=== PATIENT | female | born 1935 | race African-American/Black ===

== ENCOUNTER → 2016-10-06 | Outpatient (CLI) | payer MEDICARE, BC ==
[2016-04-06 14:20] VITALS: BP 148/82
[~2016-10-06] MED LIST: ALLO100T PO; ASPI81TA2 PO; CHOL100013 PO; CILO100T PO; FURO40TA4 PO; GABA-586 PO; INSU100I13 SQ; INSU100I17 SQ; LOSA25TA4 PO; MELO-150 PO; PRAV40TA2 PO; SIMV20TA3 PO
--- NOTE | 2016-10-06 15:22 | KCIC ---
Chest PA and lateral Indication: Chest pain and cough. Time of exam 2:42 p.m. The heart is enlarged. There appears to be some subsegmental atelectasis in the right lung base. Otherwise the lungs are clear. No effusion is seen. There is no pneumothorax. No acute bony abnormality is detected. Impression: Cardiomegaly and right basilar subsegmental atelectasis. Electronically signed by: Davy Petit MD (Oct 06, 2016 15:20:47)
== END | disposition home or self-care (01) ==
LOC: KCIC 14:29
PROVIDERS: ATTEND Family Medicine
DX: R07.9 Chest pain, unspecified (principal); R05 Cough
CPT/HCPCS: 71020

== ENCOUNTER → 2016-11-26 | Outpatient (CLI) | payer MEDICARE, BC ==
[2016-10-28 15:00] VITALS: BP 143/53
[~2016-11-26] MED LIST changes: +CEFP100T PO; +NYST100054 SWSW; +OSEL75CA PO; +POLY17PO29 PO
--- NOTE | 2016-11-26 16:51 | KCIC ---
PROCEDURE Three-view left shoulder HISTORY Persistent left shoulder and axillary pain. No known injury. COMPARISON None FINDINGS No evidence of acute fracture. No aggressive bone destruction. Generalized bone demineralization. Mild degenerative change at acromioclavicular joint. Glenohumeral joint space appears preserved. Mild enthesophyte formation at the greater tuberosity compatible with some degree of rotator cuff arthropathy. The visualized left lung demonstrates some coarse markings, could represent some fibrosis but correlate with chest radiograph. IMPRESSION Mild degenerative changes. No acute fracture or dislocation. Electronically signed by: Nick Looney MD (November 26, 2016 16:50:13)
== END | disposition home or self-care (01) ==
LOC: KCIC 15:02
PROVIDERS: ATTEND Family Medicine
DX: M25.512 Pain in left shoulder (principal); M79.602 Pain in left arm
CPT/HCPCS: 73030

== ENCOUNTER 2017-04-15 15:20 | Inpatient (IN) | payer MEDICARE, BC ==
[~2017-04-15] VITALS: Ht 162.6 cm; Wt 100.7 kg
[~2017-04-15 15:20] MED LIST changes: +ASPI-630 PO; -ASPI81TA2 PO; -MELO-150 PO; +MELO15TA23 PO
[2017-04-15] MEDS ORDERED: MORPHINE SULFATE 10 MG/ML VIAL. IV ONE (15:45)
[2017-04-15] MEDS ORDERED: IV NORMAL SALINE 1000ML BAG 1,000 ML IV ONE (15:45)
[2017-04-15 15:58] LABS: NEG OBC FOB NEG; POS OBC FOB POS
--- NOTE | 2017-04-15 16:15 | PHYS DOC ---
Past Medical History Past Medical History: Cancer, Diabetes-Type II, Renal Failure, Other Additional Past Medical Histor: Colon Cancer Past Surgical History: Cancer Surgery, Hip Replacement, Hysterectomy, Knee Replacement, Other Additional Past Surgical Histo: Bowel resection, colonoscopy Alcohol Use: None Drug Use: None Adult General Chief Complaint Chief Complaint: ABDOMINAL PAIN HPI HPI Patient is a 81 year old female presenting to the emergency department for evaluation of left-sided abdominal pain in addition to rectal bleeding that started this morning. Patient reportedly has a history of hemorrhoids: Cancer and had chemotherapy and surgery in the early 2005 and says that she has been cured. She follows with a Dr. Go as her GI physician and she thinks her last colonoscopy was approximately one year ago. Pain is from left upper quadrant down to left lower quadrant and she said that she hadn't 2 bloody bowel movements. She is in no obvious distress with normal vital signs except tachycardia at 115. Review of Systems Review of Systems Constitutional: Denies fever or chills [] Eyes: Denies change in visual acuity, redness, or eye pain [] HENT: Denies nasal congestion or sore throat [] Respiratory: Denies cough or shortness of breath [] Cardiovascular: No additional information not addressed in HPI [] GI: + abdominal pain. No nausea, vomiting. + bloody stools. No diarrhea [] : Denies dysuria or hematuria [] Musculoskeletal: Denies back pain or joint pain [] Integument: Denies rash or skin lesions [] Neurologic: Denies headache, focal weakness or sensory changes [] Current Medications Current Medications Current Medications Medications (Trade) Dose Ordered Sig/[facility] Start Time Stop Time Status Last Admin Dose Admin Levofloxacin/ Dextrose 100 ml @ 100 mls/hr 1X ONCE 04/15/17 18:15 04/15/17 19:14 Metronidazole 100 ml @ 100 mls/hr 1X ONCE 04/15/17 18:15 04/15/17 19:14 Morphine Sulfate 5 mg 1X ONCE 04/15/17 15:45 04/15/17 15:46 DC 04/15/17 16:27 5 MG Ondansetron HCl (Zofran) 4 mg PRN Q8HRS PRN 04/15/17 18:15 04/16/17 18:14 Promethazine HCl 12.5 mg/Sodium Chloride 50.5 ml @ 151.5 mls/ hr PRN Q6HRS PRN 04/15/17 18:15 Sodium Chloride 1,000 ml @ 1,000 mls/hr 1X ONCE 04/15/17 15:45 04/15/17 16:44 DC 04/15/17 16:26 1,000 MLS/HR Allergies Allergies Allergies Coded Allergies Type Severity Reaction Last Updated Verified Penicillins Allergy Intermediate 04/15/17 Yes iodine Allergy Intermediate rash 04/15/17 Yes meperidine Allergy Intermediate 04/15/17 Yes Physical Exam Physical Exam Constitutional: Well developed, well nourished, no acute distress, non-toxic appearance. [] HENT: Normocephalic, atraumatic, bilateral external ears normal, oropharynx moist, no oral exudates, nose normal. [] Eyes: PERRLA, EOMI, conjunctiva normal, no discharge. [] Neck: Normal range of motion, no tenderness, supple, no stridor. [] Cardiovascular:Heart rate regular rhythm, no murmur [] Lungs & Thorax: Bilateral breath sounds clear to auscultation [] Abdomen: Bowel sounds normal, soft, + diffuse left sided tenderness, No rebound or guarding, no masses, no pulsatile masses. Rectal exam revealed no external hemorrhoids. + BRBPR. No significant tenderness or masses noted. Skin: Warm, dry, no erythema, no rash. [] Back: No tenderness, no CVA tenderness. [] Extremities: No tenderness, no cyanosis, no clubbing, ROM intact, no edema. [] Neurologic: Alert and oriented X 3, normal motor function, normal sensory function, no focal deficits noted. [] Current Patient Data Vital Signs Vital Signs Date Time Temp Pulse Resp B/P (MAP) Pulse Ox O2 Delivery O2 Flow Rate FiO2 04/15/17 17:30 102 18 143/82 (102) 95 04/15/17 16:27 Room Air 04/15/17 15:32 99.0 99.0 Lab Values Laboratory Tests Test 04/15/17 15:35 04/15/17 16:10 Stool Occult Blood Positive (NEG) White Blood Count 4.6 x10^3/uL (4.0-11.0) Red Blood Count 4.65 x10^6/uL (3.50-5.40) Hemoglobin 13.9 g/dL (12.0-15.5) Hematocrit 41.7 % (36.0-47.0) Mean Corpuscular Volume 90 fL (79-100) Mean Corpuscular Hemoglobin 30 pg (25-35) Mean Corpuscular Hemoglobin Concent 33 g/dL (31-37) Red Cell Distribution Width 15.2 % (11.5-14.5) H Platelet Count 222 x10^3/uL (140-400) Neutrophils (%) (Auto) 62 % (31-73) Lymphocytes (%) (Auto) 25 % (24-48) Monocytes (%) (Auto) 9 % (0-9) Eosinophils (%) (Auto) 3 % (0-3) Basophils (%) (Auto) 1 % (0-3) Neutrophils # (Auto) 2.9 x10^3uL (1.8-7.7) Lymphocytes # (Auto) 1.1 x10^3/uL (1.0-4.8) Monocytes # (Auto) 0.4 x10^3/uL (0.0-1.1) Eosinophils # (Auto) 0.1 x10^3/uL (0.0-0.7) Basophils # (Auto) 0.1 x10^3/uL (0.0-0.2) Prothrombin Time 12.6 SEC (11.7-14.0) Prothrombin Time INR 1.0 (0.8-1.1) PTT 32 SEC (24-38) Sodium Level 141 mmol/L (136-145) Potassium Level 3.5 mmol/L (3.5-5.1) Chloride Level 104 mmol/L (98-107) Carbon Dioxide Level 29 mmol/L (21-32) Anion Gap 8 (6-14) Blood Urea Nitrogen 20 mg/dL (7-20) Creatinine 1.4 mg/dL (0.6-1.0) H Estimated GFR (Cockcroft-Gault) 43.9 BUN/Creatinine Ratio 14 (6-20) Glucose Level 213 mg/dL (70-99) H Calcium Level 9.7 mg/dL (8.5-10.1) Magnesium Level 1.8 mg/dL (1.8-2.4) Total Bilirubin 0.6 mg/dL (0.2-1.0) Aspartate Amino Transferase (AST) 15 U/L (15-37) Alanine Aminotransferase (ALT) 24 U/L (14-59) Alkaline Phosphatase 89 U/L (46-116) Creatine Kinase 66 U/L (26-192) Total Protein 7.8 g/dL (6.4-8.2) Albumin 3.8 g/dL (3.4-5.0) Albumin/Globulin Ratio 1.0 (1.0-1.7) Laboratory Tests 04/15/17 16:10 Laboratory Tests 04/15/17 16:10 EKG EKG [] Radiology/Procedures Radiology/Procedures CT study of the abdomen and pelvis with contrast HISTORY: Left lower quadrant abdominal pain. Rectal bleeding. Iodine allergy. TECHNIQUE: No intravenous contrast was given due to iodine allergy. Non-IV contrast helical CT scanning of the abdomen and pelvis was performed. GI contrast was administered per mouth. PQRS compliance Statement One or more of the following individualized dose reduction techniques were utilized for this study: 1. Automated exposure control 2. Adjustment of the mA and/or kV according to patient size 3. Use of iterative reconstruction technique COMPARISON: December 15, 2013. FINDINGS: The liver and spleen and pancreas are homogeneous in appearance on this noncontrast study. The gallbladder is normal and no extrahepatic biliary ductal dilatation is seen. No adrenal mass is evident. No urinary tract stone is seen. No hydronephrosis or hydroureter is seen. The urinary bladder is obscured due to streaking artifact from right-sided hip prosthesis which obscures the lower pelvis. No focal aneurysmal dilatation of the abdominal aorta is seen. No enlarged abdominal or pelvic lymphadenopathy is seen. Sigmoid diverticulosis is seen. There is mild wall thickening and pericolonic inflammatory change involving the proximal sigmoid colon consistent with diverticulitis. No free air or free fluid or abscess is seen here. No bowel obstruction is evident. The appendix is normal. The terminal ileum is unremarkable. A small hiatal hernia is seen. Mild bibasilar atelectasis is seen. No osteolytic process is seen. IMPRESSION: Mild proximal sigmoid diverticulitis without abscess or free air or bowel obstruction or free fluid. Small hiatal hernia. Electronically signed by: Jon Coker MD (04/15/2017 5:54 PM) [facility] DICTATED and SIGNED BY: JON COKER MD DATE: 04/15/17 6034 Course & Med Decision Making Course & Med Decision Making Patient with GI bleed from unclear so her so we'll get CT scan to look for diverticulitis and may need admission given she is tachycardic. She is normotensive. Patient with diverticulitis if she was started on Levaquin and Flagyl. She is not anemic but given her age and colitides I am going to admit her for further evaluation and treatment. Dragon Disclaimer Dragon Disclaimer This electronic medical record was generated, in whole or in part, using a voice recognition dictation system. Departure Departure Impression: Primary Impression: Diverticulitis Additional Impression: GI bleed Disposition: ADMITTED INPATIENT Admitting Physician: Villa Mckeon Condition: STABLE Referrals: BAILEY CASAREZ (PCP) Problem Qualifiers Primary Impression: Diverticulitis Diverticulitis site: unspecified part of intestinal tract Diverticulitis bleeding: with bleeding Diverticulitis complication: without perforation or abscess Qualified Codes: K57.93 - Diverticulitis of intestine, part unspecified, without perforation or abscess with bleeding BHARATHI WANG DO Apr 15, 2017 16:15
[2017-04-15 16:17] LABS: BASO # 0.1 x10^3/uL (0.0-0.2); BASO % 1 % (0-3); EOS % 3 % (0-3); HEMATOCRIT 41.7 % (36.0-47.0); HEMOGLOBIN 13.9 g/dL (12.0-15.5); LYMPH # 1.1 x10^3/uL (1.0-4.8); LYMPH % 25 % (24-48); MEAN CORPUSCULAR HEMOGLOBIN 30 pg (25-35); MEAN CORPUSCULAR HGB CONC 33 g/dL (31-37); MEAN CORPUSCULAR VOLUME 90 fL (79-100); MONO % 9 % (0-9); NEUT % 62 % (31-73); PLATELET COUNT 222 x10^3/uL (140-400); RED BLOOD COUNT 4.65 x10^6/uL (3.50-5.40); RED CELL DISTRIBUTION WIDTH 15.2 % (11.5-14.5); WHITE BLOOD COUNT 4.6 x10^3/uL (4.0-11.0)
[2017-04-15 16:27] LABS: PROTHROMBIN TIME PATIENT 12.6 SEC (11.7-14.0)
[2017-04-15 16:36] LABS: MAGNESIUM 1.8 mg/dL (1.8-2.4)
[2017-04-15 17:10] LABS: CALCIUM 9.7 mg/dL (8.5-10.1); CREATININE 1.4 mg/dL (0.6-1.0); GFR 43.9; POTASSIUM 3.5 mmol/L (3.5-5.1)
[2017-04-15 17:15] LABS: ALBUMIN 3.8 g/dL (3.4-5.0); TOTAL BILIRUBIN 0.6 mg/dL (0.2-1.0); TOTAL PROTEIN 7.8 g/dL (6.4-8.2)
[2017-04-15] MEDS ORDERED: ONDANSETRON PF 4 MG/2 ML VIAL. IV ONE (17:45)
--- NOTE | 2017-04-15 17:57 | RAD ---
CT study of the abdomen and pelvis with contrast HISTORY: Left lower quadrant abdominal pain. Rectal bleeding. Iodine allergy. TECHNIQUE: No intravenous contrast was given due to iodine allergy. Non-IV contrast helical CT scanning of the abdomen and pelvis was performed. GI contrast was administered per mouth. PQRS compliance Statement One or more of the following individualized dose reduction techniques were utilized for this study: 1. Automated exposure control 2. Adjustment of the mA and/or kV according to patient size 3. Use of iterative reconstruction technique COMPARISON: December 15, 2013. FINDINGS: The liver and spleen and pancreas are homogeneous in appearance on this noncontrast study. The gallbladder is normal and no extrahepatic biliary ductal dilatation is seen. No adrenal mass is evident. No urinary tract stone is seen. No hydronephrosis or hydroureter is seen. The urinary bladder is obscured due to streaking artifact from right-sided hip prosthesis which obscures the lower pelvis. No focal aneurysmal dilatation of the abdominal aorta is seen. No enlarged abdominal or pelvic lymphadenopathy is seen. Sigmoid diverticulosis is seen. There is mild wall thickening and pericolonic inflammatory change involving the proximal sigmoid colon consistent with diverticulitis. No free air or free fluid or abscess is seen here. No bowel obstruction is evident. The appendix is normal. The terminal ileum is unremarkable. A small hiatal hernia is seen. Mild bibasilar atelectasis is seen. No osteolytic process is seen. IMPRESSION: Mild proximal sigmoid diverticulitis without abscess or free air or bowel obstruction or free fluid. Small hiatal hernia. Electronically signed by: Kings Coker MD (04/15/2017 5:54 PM) [facility]
[2017-04-15] MEDS ORDERED: ONDANSETRON PF 4 MG/2 ML VIAL. IV PRN (18:15)
[2017-04-15] MEDS ORDERED: PROMETHAZINE 12.5 MG in IV NORMAL SALINE 50ML 50 ML IV PRN (18:15)
[2017-04-15 19:00] VITALS: BP 127/58
[2017-04-15 23:00] VITALS: BP 117/58
[2017-04-16 03:00] VITALS: BP 114/55
[2017-04-16 05:32] LABS: BASO % 1 % (0-3); EOS % 4 % (0-3); HEMATOCRIT 37.7 % (36.0-47.0); HEMOGLOBIN 12.4 g/dL (12.0-15.5); LYMPH # 1.1 x10^3/uL (1.0-4.8); LYMPH % 29 % (24-48); MEAN CORPUSCULAR HEMOGLOBIN 30 pg (25-35); MEAN CORPUSCULAR HGB CONC 33 g/dL (31-37); MEAN CORPUSCULAR VOLUME 90 fL (79-100); MONO % 12 % (0-9); NEUT % 55 % (31-73); PLATELET COUNT 199 x10^3/uL (140-400); RED BLOOD COUNT 4.17 x10^6/uL (3.50-5.40); WHITE BLOOD COUNT 3.9 x10^3/uL (4.0-11.0)
[2017-04-16 05:43] LABS: CALCIUM 8.7 mg/dL (8.5-10.1); CREATININE 1.5 mg/dL (0.6-1.0); GFR 40.5; POTASSIUM 3.9 mmol/L (3.5-5.1)
[2017-04-16 07:00] VITALS: BP 128/62
[2017-04-16] MEDS ORDERED: DEXTROSE 50% 25 GM / 50ML DISP.SYRIN. IV PRN (08:45)
--- NOTE | 2017-04-16 08:49 | PDOC2 ---
GI CONSULT Reason For Consult: GI Bleed HPI: HPI: 81 y/o female admitted through the ER. Reports left-sided abd pain began yesterday, also had two brown stools mixed w/ bright red blood. No recurrent bleeding since admission, still has some left-sided discomfort. Also mild nausea but tolerating full liquid diet. Labs significant for normal Hgb and BUN , CT showed sigmoid diverticulitis. Was given one dose of IV Flagyl and Levaquin in the ER. H/o colon cancer in 1999 w/ resection (Dr. Glynn) and chemotherapy. Had colonoscopy w/ Dr. Valdivia in 2003 and also w/ Dr. Franchesca oG 4-5 years ago. No GERD symptoms, no vomiting, no melena, no diarrhea. Constipation improved w/ Miralax or Senna. Believes h/o diverticulitis treated as outpt. No gallbladder , pancreas, or liver history. Takes Meloxicam and ASA. PMH: PMH: colon cancer s/p chemo and resection (1999 - surgery w/ Dr. Glynn), CHF, HLD, pulmonary hypertension, DM, CKD, OA, hiatal hernia, right hip replacement, hysterectomy, heart cath FH: Family History: No pertinent hx Social History: Smoke: 1 pack per day ALCOHOL: none Drugs: None ROS: GEN: Denies fevers, chills, sweats HEENT: Denies blurred vision, sore throat CV: Denies chest pain RESP: +cough GI: Per HPI : Denies hematuria, dysuria ENDO: Denies weight changes NEURO: Denies confusion, dizziness MSK: +joint pain SKIN: Denies jaundice, pruritus Vitals: Vitals: Vital Signs Date Time Temp Pulse Resp B/P (MAP) Pulse Ox O2 Delivery O2 Flow Rate FiO2 04/16/17 03:00 97.9 88 18 114/55 (74) 92 Room Air 97.9 Labs: Labs: Laboratory Tests Test 04/15/17 15:35 04/15/17 16:10 04/15/17 20:45 04/16/17 05:00 Stool Occult Blood Positive (NEG) White Blood Count 4.6 x10^3/uL (4.0-11.0) 3.9 x10^3/uL (4.0-11.0) Red Blood Count 4.65 x10^6/uL (3.50-5.40) 4.17 x10^6/uL (3.50-5.40) Hemoglobin 13.9 g/dL (12.0-15.5) 12.4 g/dL (12.0-15.5) Hematocrit 41.7 % (36.0-47.0) 37.7 % (36.0-47.0) Mean Corpuscular Volume 90 fL (79-100) 90 fL (79-100) Mean Corpuscular Hemoglobin 30 pg (25-35) 30 pg (25-35) Mean Corpuscular Hemoglobin Concent 33 g/dL (31-37) 33 g/dL (31-37) Red Cell Distribution Width 15.2 % (11.5-14.5) 15.0 % (11.5-14.5) Platelet Count 222 x10^3/uL (140-400) 199 x10^3/uL (140-400) Neutrophils (%) (Auto) 62 % (31-73) 55 % (31-73) Lymphocytes (%) (Auto) 25 % (24-48) 29 % (24-48) Monocytes (%) (Auto) 9 % (0-9) 12 % (0-9) Eosinophils (%) (Auto) 3 % (0-3) 4 % (0-3) Basophils (%) (Auto) 1 % (0-3) 1 % (0-3) Neutrophils # (Auto) 2.9 x10^3uL (1.8-7.7) 2.1 x10^3uL (1.8-7.7) Lymphocytes # (Auto) 1.1 x10^3/uL (1.0-4.8) 1.1 x10^3/uL (1.0-4.8) Monocytes # (Auto) 0.4 x10^3/uL (0.0-1.1) 0.5 x10^3/uL (0.0-1.1) Eosinophils # (Auto) 0.1 x10^3/uL (0.0-0.7) 0.2 x10^3/uL (0.0-0.7) Basophils # (Auto) 0.1 x10^3/uL (0.0-0.2) 0.0 x10^3/uL (0.0-0.2) Prothrombin Time 12.6 SEC (11.7-14.0) Prothromb Time International Ratio 1.0 (0.8-1.1) Activated Partial Thromboplast Time 32 SEC (24-38) Sodium Level 141 mmol/L (136-145) 140 mmol/L (136-145) Potassium Level 3.5 mmol/L (3.5-5.1) 3.9 mmol/L (3.5-5.1) Chloride Level 104 mmol/L (98-107) 105 mmol/L (98-107) Carbon Dioxide Level 29 mmol/L (21-32) 30 mmol/L (21-32) Anion Gap 8 (6-14) 5 (6-14) Blood Urea Nitrogen 20 mg/dL (7-20) 17 mg/dL (7-20) Creatinine 1.4 mg/dL (0.6-1.0) 1.5 mg/dL (0.6-1.0) Estimated GFR (Cockcroft-Gault) 43.9 40.5 BUN/Creatinine Ratio 14 (6-20) Glucose Level 213 mg/dL (70-99) 249 mg/dL (70-99) Calcium Level 9.7 mg/dL (8.5-10.1) 8.7 mg/dL (8.5-10.1) Magnesium Level 1.8 mg/dL (1.8-2.4) Total Bilirubin 0.6 mg/dL (0.2-1.0) Aspartate Amino Transf (AST/SGOT) 15 U/L (15-37) Alanine Aminotransferase (ALT/SGPT) 24 U/L (14-59) Alkaline Phosphatase 89 U/L (46-116) Creatine Kinase 66 U/L (26-192) Total Protein 7.8 g/dL (6.4-8.2) Albumin 3.8 g/dL (3.4-5.0) Albumin/Globulin Ratio 1.0 (1.0-1.7) Glucose (Fingerstick) 164 mg/dL (70-99) Test 04/16/17 07:40 Glucose (Fingerstick) 273 mg/dL (70-99) Allergies: Coded Allergies: Penicillins (Verified Allergy, Intermediate, 04/15/17) iodine (Verified Allergy, Intermediate, rash, 04/15/17) topical iodine meperidine (Verified Allergy, Intermediate, 04/15/17) Medications: Current Medications Medications (Trade) Dose Ordered Sig/Ervin Route PRN Reason Start Time Stop Time Status Last Admin Dose Admin Sodium Chloride 1,000 ml @ 1,000 mls/hr 1X ONCE IV 04/15/17 15:45 04/15/17 16:44 DC 04/15/17 16:26 Morphine Sulfate 5 mg 1X ONCE IV 04/15/17 15:45 04/15/17 15:46 DC 04/15/17 16:27 Ondansetron HCl (Zofran) 8 mg 1X ONCE IV 04/15/17 17:45 04/15/17 17:46 DC 04/15/17 17:43 Levofloxacin/ Dextrose 100 ml @ 100 mls/hr 1X ONCE IV 04/15/17 18:15 04/15/17 19:14 DC 04/15/17 23:44 Metronidazole 100 ml @ 100 mls/hr 1X ONCE IV 04/15/17 18:15 04/15/17 19:14 DC 04/16/17 00:48 Imaging: Imaging: CT A/P w/ oral contrast 04/15/17 IMPRESSION: Mild proximal sigmoid diverticulitis without abscess or free air or bowel obstruction or free fluid. Small hiatal hernia. PE: GEN: NAD HEENT: Atraumatic, PERRL LUNGS: CTAB HEART: RRR ABD: NABS, S/ND, mild LUQ to LLQ discomfort EXTREMITY: No edema SKIN: No rashes, no jaundice NEURO/PSYCH: A & O 3 A/P: A/P: Left-sided abd pain, blood in stools -onset yesterday -no bleeding since admission -tolerating PO -normal Hgb and BUN Abnormal CT - sigmoid diverticulitis H/o colon cancer s/p resection, chemo -last colonoscopy 4-5 years ago -- Atbx for diverticulitis. ADAT. Unclear etiology of bleeding. 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 Outpt colonoscopy in a few weeks - our office will arrange. TORSTEN BERRY Apr 16, 2017 08:49
[2017-04-16] MEDS ORDERED: CILOSTAZOL 50 MG TABLET. PO SCH (09:00)
[2017-04-16] MEDS ORDERED: PNEUMOC CONJ VACC 23-VALENT 0.5 ML VIAL. VAX IM ONE (09:00)
[2017-04-16] MEDS ORDERED: CIPROFLOXACIN HCL 250 MG TABLET. PO SCH (09:00)
[2017-04-16] MEDS: FUROSEMIDE 40 MG TABLET. PO SCH ×2 (09:00→13:30)
[2017-04-16] MEDS ORDERED: POLYETHYLENE GLYCOL 3350 17 GM PACKET. PO PRN (09:00)
[2017-04-16] MEDS ORDERED: FLU VACC QS2017-18 (36MOS+)/PF 0.5 ML SYRINGE. VAX IM ONE (09:00)
[2017-04-16] MEDS ORDERED: INFLUENZA VAX SCREEN BY RX. MC ONE (09:00)
[2017-04-16] MEDS ORDERED: PNEUMOCOCCAL VAX SCREEN BY RX. MC ONE (09:00)
[2017-04-16] MEDS ORDERED: INSULIN ASPART 300 UNITS/3 ML INSULN.PEN SQ ONE ×2 (09:15→16:30)
[2017-04-16] MEDS ORDERED: GABAPENTIN 300 MG CAPSULE. PO SCH ×2 (09:15→21:00)
[2017-04-16] MEDS: ALLOPURINOL 100 MG TABLET. PO SCH (09:31)
[2017-04-16] MEDS: metroNIDAZOLE 500 MG TABLET PO SCH ×3 (09:35→21:34)
[2017-04-16] MEDS: FAMOTIDINE 20 MG TABLET. PO SCH (09:35)
[2017-04-16] MEDS: MELOXICAM 7.5 MG TABLET PO SCH (09:36)
[2017-04-16] MEDS: CHOLECALCIFEROL (VITAMIN D3) 1,000 UNIT TABLET PO SCH (09:37)
[2017-04-16] MEDS: NYSTATIN 100,000 UNITS/ML 5 ML ORAL.SUSP. SWSW SCH ×4 (09:38→21:00)
[2017-04-16 11:06] VITALS: BP 115/68
[2017-04-16] MEDS: INSULIN ASPART 300 UNITS/3 ML INSULN.PEN SQ SCH ×3 (12:10→17:00)
[2017-04-16 14:46] VITALS: BP 118/55
[2017-04-16] MEDS ORDERED: GABA-586 PO (15:49)
[2017-04-16] MEDS: ASPIRIN CHEWABLE 81 MG TABLET. PO SCH (17:00)
--- NOTE | 2017-04-16 18:20 | HP ---
ADMIT DATE: 04/15/2017 CHIEF COMPLAINT: Rectal bleeding. HISTORY OF PRESENT ILLNESS: The patient is a 81-year-old, woman with past medical history of colon cancer, status post resection and chemotherapy in 1999 as well as history of diverticulitis who presented to the Emergency Room with left-sided abdominal pain as well as hematochezia x 2. She has not had any recurrent bleeding since presenting to the Emergency Room. Her abdominal pain has improved, but she is still uncomfortable. She admits to mild nausea, which she blames on Cipro she was given this morning. She is tolerating, however, full liquid diet and requesting advancement of her dietary regimen. In the Emergency Room, a CT showed sigmoid diverticulitis and she was admitted with IV antibiotics including Flagyl and Levaquin. PAST MEDICAL HISTORY: Colon cancer, status post chemo/resection in 1999, CHF, hypertension, hyperlipidemia, pulmonary hypertension, CKD, diabetes, osteoarthritis and history of hiatal hernia. PAST SURGICAL HISTORY: She is status post heart cath, hip replacement and hysterectomy. FAMILY HISTORY: No GI cancers known. SOCIAL HISTORY: Smokes about a pack a day. She denies any alcohol or drug use. ALLERGIES: PENICILLINS, MEPERIDINE, IODINE AND ACCORDING TO HER CIPRO. MEDICATIONS: MAR reconciled with home medications. REVIEW OF SYSTEMS: Positive for abdominal pain and hematochezia as per HPI. She did have vomiting this morning after multiple p.o. medications, but blames it on n.p.o. status at the time. Rest of organ system review is essentially negative. PHYSICAL EXAMINATION: VITAL SIGNS: From today show a blood pressure of 118/55, heart rate at 82 and respiratory rate at 16. She is afebrile. GENERAL: This is a 81-year-old, morbidly obese, woman, alert and oriented, in no acute distress, pleasant. HEENT: Shows no scleral icterus. NECK: Supple without any lymphadenopathy. LUNGS: Clear. HEART: Has regular rate and rhythm with 2+ systolic murmur. ABDOMEN: Obese. Positive bowel sounds. No tenderness to palpation including left lower quadrant. EXTREMITIES: Show no edema. SKIN: Warm, soft and dry without any rash. LABORATORIES: CBC with WBC of 3.9, hemoglobin 12.4 and platelets of 199. Differential with 55 neutrophils, 29 lymphs and 12 monos. Chemistries with BUN and creatinine of 17 and 1.5, which is essentially her baseline. Electrolytes are within normal limits. Glucose are fluctuating from 164-350. IMAGING: CT of the abdomen and pelvis shows mild proximal sigmoid diverticulitis without abscess or free air or bowel obstruction or free fluid. ASSESSMENT AND PLAN: The patient is a 81-year-old, woman with multiple medical issues, presenting with abdominal pain consistent with diverticulitis. She is now admitted on antibiotics. We will continue Flagyl and Levaquin p.o. She is tolerating p.o. diet without any difficulties. We will advance to GI soft. She is a diabetic with poor control. We will reinstate her meal dose insulin in addition to long acting. Continue to monitor insulin sliding scale and limit calorie intake. The patient does have a history of congestive heart failure without any acute issues at this point. An echo in October of this year actually showed normal systolic function with an EF of 55-60. She had only grade 1 abnormal relaxation pattern. We will continue all her home medications for the time being. Blood pressure currently is well controlled. Continue statin for hyperlipidemia. We will continue all her other medications for chronic ailments as well. She will be started on H2 blockers as well as Lovenox for prophylaxis. NOLA LA MD DR: SEE/nts JOB#: [id number] / [id number] BAILEY Armenta
[2017-04-16] MEDS ORDERED: HYDROcodone/APAP 5/325MG 1 TAB TABLET PO PRN (19:30)
[2017-04-16] MEDS ORDERED: IBUPROFEN 400 MG TABLET. PO PRN (19:30)
[2017-04-16] MEDS ORDERED: ZOLPIDEM 5 MG TABLET. PO PRN (19:30)
[2017-04-16 19:43] VITALS: BP 121/58
[2017-04-16] MEDS ORDERED: ATORVASTATIN CALCIUM 20 MG TABLET PO SCH (21:00)
[2017-04-16] MEDS ORDERED: INSULIN DETEMIR 300 UNITS/3 ML INSULN.PEN. SQ SCH (21:00)
[2017-04-16 22:43] VITALS: BP 136/72
[2017-04-17 02:52] VITALS: BP 94/54
[2017-04-17] MEDS: metroNIDAZOLE 500 MG TABLET PO SCH ×2 (05:09→13:23)
[2017-04-17 06:23] LABS: HEMATOCRIT 37.7 % (36.0-47.0); HEMOGLOBIN 12.5 g/dL (12.0-15.5); RED BLOOD COUNT 4.18 x10^6/uL (3.50-5.40); RED CELL DISTRIBUTION WIDTH 14.9 % (11.5-14.5); WHITE BLOOD COUNT 3.5 x10^3/uL (4.0-11.0)
[2017-04-17 06:59] LABS: CALCIUM 8.9 mg/dL (8.5-10.1); CREATININE 1.3 mg/dL (0.6-1.0); GFR 47.8
[2017-04-17 07:30] VITALS: BP 121/56
[2017-04-17] MEDS: INSULIN ASPART 300 UNITS/3 ML INSULN.PEN SQ SCH ×4 (07:30→12:11)
[2017-04-17] MEDS: ALLOPURINOL 100 MG TABLET. PO SCH (08:20)
[2017-04-17] MEDS: FAMOTIDINE 20 MG TABLET. PO SCH (08:20)
[2017-04-17] MEDS: ASPIRIN CHEWABLE 81 MG TABLET. PO SCH (08:20)
[2017-04-17] MEDS: MELOXICAM 7.5 MG TABLET PO SCH (08:21)
[2017-04-17] MEDS: CHOLECALCIFEROL (VITAMIN D3) 1,000 UNIT TABLET PO SCH (08:21)
[2017-04-17] MEDS: NYSTATIN 100,000 UNITS/ML 5 ML ORAL.SUSP. SWSW SCH ×2 (08:22→13:23)
[2017-04-17] MEDS ORDERED: CILOSTAZOL 50 MG TABLET. PO SCH (09:00)
[2017-04-17] MEDS ORDERED: FUROSEMIDE 40 MG TABLET. PO SCH (09:00)
[2017-04-17] MEDS ORDERED: GABAPENTIN 300 MG CAPSULE. PO SCH (09:00)
[2017-04-17 10:30] VITALS: BP 138/70
[2017-04-17] MEDS ORDERED: PNEUMOCOCCAL VAX SCREEN BY RX. MC ONE (13:30)
[2017-04-17] MEDS ORDERED: INFLUENZA VAX SCREEN BY RX. MC ONE (13:30)
[2017-04-17] MEDS ORDERED: PNEUMOC CONJ VACC 23-VALENT 0.5 ML VIAL. VAX IM ONE (13:45)
[2017-04-17] MEDS ORDERED: FLU VACC QS2017-18 (36MOS+)/PF 0.5 ML SYRINGE. VAX IM ONE (13:45)
[2017-04-17 14:45] VITALS: BP 125/67
[2017-04-17] MEDS ORDERED: LEVO500T8 PO (16:39)
[2017-04-17] MEDS ORDERED: METR500T PO (16:39)
--- NOTE | 2017-04-19 16:15 | DS ---
DATE OF DISCHARGE: 04/17/2017 CHIEF COMPLAINT: Rectal bleeding. HOSPITAL COURSE: The patient is a 81-year-old woman with history of colon resection and chemotherapy for colon cancer as well as hypertension and congestive heart failure who presented with hematochezia x 2 and mild abdominal pain. By CT in the Emergency Room, she was diagnosed with diverticulitis and admitted to the hospital. She was kept n.p.o., but oral intake was quickly advanced with resolution of her symptoms. She was started on p.o. antibiotics with Flagyl and Levaquin (CIPRO ALLERGY), which was continued beyond her discharge from the hospital. PHYSICAL EXAMINATION: VITAL SIGNS: Show a blood pressure of 125/67, heart rate of 96, respiratory rate at 18. She is afebrile. GENERAL: This is a morbidly obese 81-year-old woman, alert and oriented, no acute distress, very pleasant. HEENT: Shows no scleral icterus. LUNGS: Clear. HEART: Regular rate and rhythm. ABDOMEN: Obese, positive bowel sounds, minimal tenderness to palpation in the left lower quadrant. EXTREMITIES: Show no edema. DISCHARGE DATE: 04/17/2017. DISCHARGE DIAGNOSIS: Diverticulitis. DISCHARGE DISPOSITION: To home. DISCHARGE CONDITION: Improved. DISCHARGE MEDICATIONS: Please refer to MAR. DISCHARGE INSTRUCTIONS: The patient will follow up with PCP in 1-[address] NOLA LA MD DR: SEE/nts JOB#: [id number] / [id number] BAILEY Armenta
== END 2017-04-17 18:00 | disposition home or self-care (01) | DRG 392 ==
LOC: ER 15:20 → 5 NORTH 18:17
PROVIDERS: ADMIT Internal Medicine; ATTEND Internal Medicine
DX: K57.32 Diverticulitis of large intestine without perforation or abscess without bleeding (principal); I13.0 Hypertensive heart and chronic kidney disease with heart failure and stage 1 through stage 4 chronic kidney disease, or unspecified chronic kidney disease; E11.22 Type 2 diabetes mellitus with diabetic chronic kidney disease; E11.65 Type 2 diabetes mellitus with hyperglycemia; I50.9 Heart failure, unspecified; E78.5 Hyperlipidemia, unspecified; F17.210 Nicotine dependence, cigarettes, uncomplicated; N18.9 Chronic kidney disease, unspecified; K59.00 Constipation, unspecified; Z96.641 Presence of right artificial hip joint; Z96.659 Presence of unspecified artificial knee joint; Z88.0 Allergy status to penicillin; Z88.8 Allergy status to other drugs, medicaments and biological substances; Z85.038 Personal history of other malignant neoplasm of large intestine; Z88.1 Allergy status to other antibiotic agents; Z90.710 Acquired absence of both cervix and uterus; Z92.21 Personal history of antineoplastic chemotherapy; Z90.49 Acquired absence of other specified parts of digestive tract; Z91.041 Radiographic dye allergy status
CPT/HCPCS: 36415; 74176; 80048; 80053; 82274; 82550; 82962; 83735; 85025; 85027; 85610; 85730; 86850; 86900; 86901; 90686; 90732; 96361; 96374; 96375; J1815; J1956; J2270; J2405; J3490; J7030; 99285-25

== ENCOUNTER → 2017-10-04 | Outpatient (CLI) | payer MEDICARE, BC | END | disposition home or self-care (01) | LOC: KCIC 14:36 | DX: M25.551 Pain in right hip (principal); Z96.641 Presence of right artificial hip joint | CPT/HCPCS: 73502 ==

== ENCOUNTER 2018-01-10 13:14 | Emergency (ER) | payer MEDICARE, BC ==
[2018-01-10] MEDS: ACETAMINOPHEN/CODEINE 300/30MG TABLET. PO (14:20)
[2018-01-10 14:22] LABS: BILIRUBIN,URINE NEGATIVE (NEG); CLARITY,URINE CLEAR; GLUCOSE,URINE 500 mg/dL (NEG); NITRITE,URINE NEGATIVE (NEG); PROTEIN,URINE NEGATIVE (NEG-TRACE); UROBILINOGEN,URINE 0.2 mg/dL (0.2 mg/dL)
[2018-01-10 14:30] LABS: BACTERIA,URINE FEW /HPF (0-FEW); COLOR,URINE STRAW; RBC,URINE OCC /HPF (0-2); SQUAMOUS EPITHELIAL CELL,UR MOD /LPF
[2018-01-10 14:44] LABS: ADD MAN DIFF? NO
[2018-01-10 14:48] LABS: BASO % 1 % (0-3); EOS # 0.1 x10^3/uL (0.0-0.7); EOS % 3 % (0-3); HEMATOCRIT 41.2 % (36.0-47.0); HEMOGLOBIN 13.9 g/dL (12.0-15.5); LYMPH % 24 % (24-48); MEAN CORPUSCULAR HEMOGLOBIN 31 pg (25-35); MEAN CORPUSCULAR HGB CONC 34 g/dL (31-37); MEAN CORPUSCULAR VOLUME 91 fL (79-100); MONO # 0.4 x10^3/uL (0.0-1.1); MONO % 9 % (0-9); NEUT # 2.6 x10^3uL (1.8-7.7); NEUT % 63 % (31-73); PLATELET COUNT 195 x10^3/uL (140-400); RED BLOOD COUNT 4.53 x10^6/uL (3.50-5.40); RED CELL DISTRIBUTION WIDTH 14.3 % (11.5-14.5); WHITE BLOOD COUNT 4.2 x10^3/uL (4.0-11.0)
[2018-01-10 15:14] LABS: LACTIC ACID 1.3 mmol/L (0.4-2.0)
[2018-01-10 15:17] LABS: ANION GAP 10 (6-14); BLOOD UREA NITROGEN 21 mg/dL (7-20); CALCIUM 8.9 mg/dL (8.5-10.1); CARBON DIOXIDE 26 mmol/L (21-32); CHLORIDE 104 mmol/L (98-107); CREATININE 1.4 mg/dL (0.6-1.0); GFR 43.8; GLUCOSE 243 mg/dL (70-99); POTASSIUM 4.1 mmol/L (3.5-5.1); SODIUM 140 mmol/L (136-145)
== END 2018-01-10 15:49 | disposition home or self-care (01) ==
LOC: ER 13:14
DX: N63.0 Unspecified lump in unspecified breast (principal); E11.22 Type 2 diabetes mellitus with diabetic chronic kidney disease; N18.3 Chronic kidney disease, stage 3 (moderate); Z88.0 Allergy status to penicillin; Z88.8 Allergy status to other drugs, medicaments and biological substances; Z91.041 Radiographic dye allergy status
CPT/HCPCS: 36415; 80048; 81001; 83605; 85025; 87086; 99284

== ENCOUNTER → 2018-02-10 | Outpatient (CLI) | payer MEDICARE, BC | END | disposition home or self-care (01) | LOC: KCIC MAMMO 12:53 | DX: Z12.31 Encounter for screening mammogram for malignant neoplasm of breast (principal); I13.0 Hypertensive heart and chronic kidney disease with heart failure and stage 1 through stage 4 chronic kidney disease, or unspecified chronic kidney disease; E11.22 Type 2 diabetes mellitus with diabetic chronic kidney disease; I50.32 Chronic diastolic (congestive) heart failure; N18.4 Chronic kidney disease, stage 4 (severe); E78.5 Hyperlipidemia, unspecified; Z85.048 Personal history of other malignant neoplasm of rectum, rectosigmoid junction, and anus; Z87.891 Personal history of nicotine dependence; Z79.4 Long term (current) use of insulin; Z85.038 Personal history of other malignant neoplasm of large intestine; Z92.21 Personal history of antineoplastic chemotherapy; Z86.39 Personal history of other endocrine, nutritional and metabolic disease; Z90.710 Acquired absence of both cervix and uterus; Z83.3 Family history of diabetes mellitus | CPT/HCPCS: 77067 ==

== ENCOUNTER → 2018-09-01 | Outpatient (CLI) | payer MEDICARE, BC ==
[2018-01-10 15:17] VITALS: BP 120/71
[~2018-09-01] MED LIST changes: +CEPH-264 PO; -GABA-586 PO; +GABA300C18 PO; +GABA600T7 PO; +LEVO500T8 PO; +LOSA1TAB22 PO; -LOSA25TA4 PO; +LOSA25TA54 PO; +METR500T PO; +Pantoprazole PO; +ZOLP5TAB5 PO
--- NOTE | 2018-09-01 15:11 | KCIC ---
Left breast diagnostic digital mammograms: Reason for examination: Left breast pain with nipple swelling for one month. Has been on antibiotics with a little bit of improvement. Comparison is made to previous studies dated 02/10/2018 and 05/14/2016. Interpretation was made with the benefit of CAD. The skin shows no abnormalities. The nipple does appear to be enlarged when compared to previous exam. No abnormal axillary lymph nodes are seen. The breast parenchyma shows scattered fibroglandular density. (Breast density: Category B.) There continues to be a small nodular density posterior medially at the 8:00 C position which is stable. There are scattered calcifications seen bilaterally. No other definite focal abnormalities evident mammographically. Impression: No change in the small nodular density at the 8:00 C position. No other nodular abnormality seen. Ultrasound to follow BI-RADS category 0: Incomplete. Needs additional imaging evaluation. Left breast ultrasound: Ultrasound examination was performed in the areas of clinical and mammographic concern and at the axilla. In the retroareolar 1:00 position of the left breast, there is a hypoechoic circumscribed lesion measuring 7.9 x 6.5 mm in greatest dimension. This could represent a complicated cyst however a papilloma cannot be excluded and further evaluation with aspiration/biopsy is recommended. A small hypoechoic lesion is present in the 8:00 position 7 cm from the nipple and corresponds to the stable nodule seen mammographically and probably represents a small fibroadenoma. No other cystic or solid nodules are seen. No abnormal appearing lymph nodes are seen in the axilla. IMPRESSION: Hypoechoic circumscribed lesion in the retroareolar 1:00 position of the left breast measuring 7.9 x 6.5 mm in greatest dimension. Recommend further evaluation with aspiration/biopsy. BI-RADS Category 4: Suspicious. These findings have been discussed with the patient and the patient's physician's press assistant and feeder was notified about these findings with a message left on the available answering machine at 2:30 PM on 09/01/2018. "Our facility is accredited by the [employer] Mammography [employer]." This patient's information has been entered into a reminder system for the patient to be notified with the results of her examination and a target date for the next mammogram. Electronically signed by: Massiel Gerardo MD (09/01/2018 3:08 PM) [facility]
== END | disposition home or self-care (01) ==
LOC: KCIC MAMMO 12:53
PROVIDERS: ATTEND Family Medicine
DX: N64.4 Mastodynia (principal); N64.89 Other specified disorders of breast
CPT/HCPCS: 76641; 77065

== ENCOUNTER → 2018-09-30 | Outpatient (CLI) | payer MEDICARE, BC ==
[2018-01-10 15:17] VITALS: BP 120/71
--- NOTE | 2018-09-30 15:29 | RAD ---
DATE: 09/30/2018 EXAM: DIGITAL DIAGNOSTIC LT HISTORY: Postbiopsy marker placement mammogram. COMPARISON: Previous mammogram from 09/01/2018 This study was interpreted with the benefit of Computerized Aided Detection (CAD). FINDINGS: Significant displacement of the biopsy clip was seen due to mobility of the retroareolar breast and hematoma formation. The biopsy clip is approximately 3.5 cm anteromedially to the lesion on cc view and 2.7 cm anterior inferior to the lesion on MLO view. Impression: Post biopsy marker placement mammographic findings as described above.
--- NOTE | 2018-09-30 16:23 | RAD ---
Indication: Ultrasound-guided left breast mass biopsy. TECHNIQUE: After explaining risks and benefits of the procedure, informed consent was obtained. The skin was prepped and draped using usual sterile procedure. 1 percent lidocaine was used for local anesthesia. Initial attempt was made to aspirate the lesion. No fluid was able to be aspirated. Upon 6 core needle biopsies obtained under ultrasound guidance. Metallic marker was placed. Hemostasis was achieved with pressure. Patient was sent for post biopsy marker comparison mammogram. COMPARISON: Ultrasound from 09/01/2018. FINDINGS: Redemonstrated oval-shaped hypoechoic mass at 1:00 position in the left breast with 6 core needle biopsy specimen. IMPRESSION: Left breast mass biopsy without immediate complications. Pathology pending. Electronically signed by: Vik Kim DO (09/30/2018 4:20 PM) [facility]
== END | disposition home or self-care (01) ==
LOC: US 14:51
PROVIDERS: ATTEND Surgery
DX: D24.2 Benign neoplasm of left breast (principal); I10 Essential (primary) hypertension; Z88.0 Allergy status to penicillin; Z88.5 Allergy status to narcotic agent; Z88.8 Allergy status to other drugs, medicaments and biological substances; Z98.890 Other specified postprocedural states; Z85.038 Personal history of other malignant neoplasm of large intestine; F17.200 Nicotine dependence, unspecified, uncomplicated; Z96.641 Presence of right artificial hip joint
CPT/HCPCS: 19083; 77065; 88305; C1713; 19081; 76942

== ENCOUNTER 2018-11-19 21:19 | Inpatient (IN) | payer MEDICARE, BC ==
[~2018-11-19] VITALS: Ht 162.6 cm; Wt 95.3 kg
[~2018-11-19 21:19] MED LIST changes: -GABA600T7 PO; -LOSA1TAB22 PO; -Pantoprazole PO; -ZOLP5TAB5 PO
[2018-11-19 21:50] LABS: BASO % 1 % (0-3); EOS # 0.1 x10^3/uL (0.0-0.7); EOS % 2 % (0-3); HEMATOCRIT 38.3 % (36.0-47.0); HEMOGLOBIN 12.5 g/dL (12.0-15.5); LYMPH # 1.4 x10^3/uL (1.0-4.8); LYMPH % 26 % (24-48); MEAN CORPUSCULAR HEMOGLOBIN 27 pg (25-35); MEAN CORPUSCULAR HGB CONC 33 g/dL (31-37); MEAN CORPUSCULAR VOLUME 84 fL (79-100); MONO # 0.6 x10^3/uL (0.0-1.1); MONO % 11 % (0-9); NEUT # 3.1 x10^3uL (1.8-7.7); NEUT % 60 % (31-73); PLATELET COUNT 252 x10^3/uL (140-400); RED BLOOD COUNT 4.56 x10^6/uL (3.50-5.40); RED CELL DISTRIBUTION WIDTH 15.4 % (11.5-14.5); WHITE BLOOD COUNT 5.2 x10^3/uL (4.0-11.0)
[2018-11-19 22:00] LABS: PROTHROMBIN TIME PATIENT 12.5 SEC (11.7-14.0)
[2018-11-19] MEDS ORDERED: ONDANSETRON PF 4 MG/2 ML VIAL. IV ONE (22:00)
[2018-11-19] MEDS ORDERED: MORPHINE SULFATE 4 MG/ML VIAL. IV ONE ×2 (22:00→23:30)
[2018-11-19] MEDS ORDERED: FAMOTIDINE 20 MG/2 ML VIAL IVP ONE (22:00)
[2018-11-19] MEDS ORDERED: IV DEXTROSE 5% - 0.9 % NACL 1,000 ML IV ONE (22:00)
--- NOTE | 2018-11-19 22:16 | PHYS DOC ---
Past Medical History Past Medical History: Diabetes-Type II, Renal Disease Additional Past Medical Histor: Colon Cancer Past Surgical History: Hip Replacement, Hysterectomy, Other Additional Past Surgical Histo: COLONECTOMY Alcohol Use: None Drug Use: None Adult General Chief Complaint Chief Complaint: BLOODY STOOL HPI HPI Patient is a 82 year old [place] female presents with epigastric pain starting 24 hours prior to ED arrival. Patient's pain is significant worse today. She reports one episode of bright blood with dark stool yesterday without recurrence today. Pain is described as sharp rated moderate to severe. Associated symptoms include dizziness and had. Patient eyes chest pain. No nausea vomiting. No fever chills or sweats. No other acute symptoms or complaints.[] Review of Systems Review of Systems Review symptoms as per history of present illness. All other systems were reviewed and found to be within normal limits, except as documented in this note. Allergies Allergies Allergies Coded Allergies Type Severity Reaction Last Updated Verified Penicillins Allergy Intermediate 04/15/17 Yes iodine Allergy Intermediate rash 04/15/17 Yes meperidine Allergy Intermediate 04/15/17 Yes Physical Exam Physical Exam Constitutional: Well developed, well nourished, no acute distress, non-toxic appearance. [] HENT: Normocephalic, atraumatic, bilateral external ears normal, oropharynx moist, no oral exudates, nose normal. [] Eyes: PERRLA, EOMI, conjunctiva normal, no discharge. [] Neck: Normal range of motion, no tenderness, supple, no stridor. [] Cardiovascular:Heart rate regular rhythm, no murmur [] Lungs & Thorax: Bilateral breath sounds clear to auscultation [] Abdomen: Bowel sounds normal, soft, mild epigastric pain, tenderness. No guarding. [] Skin: Warm, dry, no erythema, no rash. [] Back: No tenderness, no CVA tenderness. [] Extremities: No tenderness, no edema. [] Neurologic: Alert and oriented X 3, normal motor function, normal sensory function, no focal deficits noted. [] Psychologic: Affect normal, judgement normal, mood normal. [] EKG EKG [] Radiology/Procedures Radiology/Procedures [CT abd/pelvis: And effort stranding, no obstructive uropathy, no other acute symptoms or complaints per radiology report] Course & Med Decision Making Course & Med Decision Making Pertinent Labs and Imaging studies reviewed. (See chart for details) [No acute findings on CT exam to explain GI bleed. Patient does take daily aspirin. 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 Pepcid given. Dr. Hawkins to admit. Courtesy bridge orders written.] Cristo Disclaimer Cristo Disclaimer This electronic medical record was generated, in whole or in part, using a voice recognition dictation system. Departure Departure Referrals: FUNMILAYO VILLAVICENCIO MD (PCP) MAINE CASAREZ DO November 19, 2018 22:16
[2018-11-19 22:59] LABS: CREATININE 1.4 mg/dL (0.6-1.0); GFR 43.8; POTASSIUM 3.7 mmol/L (3.5-5.1)
--- NOTE | 2018-11-19 23:07 | RAD ---
CT ABDOMEN PELVIS WO CONTRAST Indication: Upper abdominal pain for 2 or 3 months. Exposure: One or more of the following individualized dose reduction techniques were utilized for this examination: 1. Automated exposure control 2. Adjustment of the mA and/or kV according to patient size 3. Use of iterative reconstruction technique. Comparison: None are available. Technique: No intravenous contrast given. No oral contrast per request. Findings: Evaluation of solid viscera, bowel and vasculature is compromised by the noncontrast technique. Findings: There is mild atelectasis or fibrosis in the right lung base. Liver and spleen do not appear significantly enlarged. Pancreas demonstrates no peripancreatic fluid or inflammatory type change. No evidence of adrenal mass. No evidence of right renal calculus or ureteric calculus. Tiny calcification at the left lower kidney is probably vascular. No hydronephrosis or obstructive change. Note that the distal ureters are poorly seen bilaterally due to artifact from a right hip replacement. There is mild left perinephric stranding. No evidence of calcified gallstone. The aorta is calcified, no aneurysm identified. No significant lymph node enlargement. There is mild wall thickening of the duodenum, probably just due to lack of distention. There is no significant surrounding stranding. No significant small bowel distention. There appear to be some anastomotic sutures in the distal colon. Diverticulosis. No evidence of acute colitis. Appendix appears normal. No evidence of ascites. No evidence of pneumoperitoneum. No significant urinary bladder wall thickening, note that the inferior bladder is poorly seen due to the metal artifact. No evidence of loss of vertebral body height. There is degenerative spondylosis with spondylolisthesis of L4-L5. There is a right hip replacement. IMPRESSION: Stranding in the left perinephric fat, possibilities include inflammatory or infectious process such as pyelonephritis. There does not appear to be left obstructive uropathy at this time. Distal ureters obscured by metal artifact from the right hip replacement. Electronically signed by: Nick Looney MD (11/19/2018 11:04 PM) [facility]
[2018-11-19 23:52] LABS: FECAL OB PT POSITIVE (NEG)
[2018-11-20] VITALS (7 sets, daily range): BP systolic 124–148; BP diastolic 59–82
[2018-11-20] MEDS ORDERED: ZOLP5TAB5 PO (00:38)
[2018-11-20] MEDS ORDERED: LOSA1TAB22 PO (00:38)
[2018-11-20] MEDS: ZOLPIDEM 5 MG TABLET. PO PRN ×2 (00:59→22:44)
[2018-11-20] MEDS: ACETAMINOPHEN 325 MG TABLET. PO PRN ×2 (00:59→15:28)
[2018-11-20] MEDS ORDERED: GABAPENTIN 300 MG CAPSULE. PO SCH ×3 (09:00→13:00)
[2018-11-20] MEDS: ASPIRIN CHEWABLE 81 MG TABLET. PO SCH (09:00)
[2018-11-20] MEDS ORDERED: LOSARTAN POTASSIUM 50 MG TABLET. PO SCH (09:00)
[2018-11-20] MEDS ORDERED: hydroCHLOROthiazide 25 MG TABLET PO SCH (09:00)
[2018-11-20 09:32] LABS: ALBUMIN 2.8 g/dL (3.4-5.0); ALBUMIN/GLOBULIN RATIO 0.9 (1.0-1.7); CALCIUM 8.3 mg/dL (8.5-10.1); CREATININE 1.4 mg/dL (0.6-1.0); GFR 43.8; POTASSIUM 4.3 mmol/L (3.5-5.1); TOTAL BILIRUBIN 0.4 mg/dL (0.2-1.0)
[2018-11-20 09:36] LABS: BASO % 1 % (0-3); EOS # 0.1 x10^3/uL (0.0-0.7); EOS % 3 % (0-3); HEMATOCRIT 36.6 % (36.0-47.0); HEMOGLOBIN 11.4 g/dL (12.0-15.5); LYMPH # 1.1 x10^3/uL (1.0-4.8); LYMPH % 28 % (24-48); MEAN CORPUSCULAR HEMOGLOBIN 27 pg (25-35); MEAN CORPUSCULAR HGB CONC 31 g/dL (31-37); MEAN CORPUSCULAR VOLUME 87 fL (79-100); MONO # 0.6 x10^3/uL (0.0-1.1); MONO % 14 % (0-9); NEUT # 2.2 x10^3uL (1.8-7.7); NEUT % 54 % (31-73); PLATELET COUNT 194 x10^3/uL (140-400); RED BLOOD COUNT 4.21 x10^6/uL (3.50-5.40); RED CELL DISTRIBUTION WIDTH 15.6 % (11.5-14.5)
[2018-11-20] MEDS: ALLOPURINOL 100 MG TABLET. PO SCH (10:08)
[2018-11-20] MEDS: CHOLECALCIFEROL (VITAMIN D3) 1,000 UNIT TABLET PO SCH (10:08)
[2018-11-20] MEDS: FUROSEMIDE 40 MG TABLET. PO SCH (10:09)
[2018-11-20] MEDS: CILOSTAZOL 50 MG TABLET. PO SCH ×2 (10:16→22:20)
[2018-11-20 10:41] LABS: BILIRUBIN,URINE NEGATIVE (NEG); CLARITY,URINE CLEAR; COLOR,URINE YELLOW; NITRITE,URINE NEGATIVE (NEG); PH,URINE 5.5; PROTEIN,URINE 100 mg/dL (NEG-TRACE)
[2018-11-20 10:58] LABS: BACTERIA,URINE MANY /HPF (0-FEW); RBC,URINE 0 /HPF (0-2)
[2018-11-20 10:59] LABS: SQUAMOUS EPITHELIAL CELL,UR FEW /LPF
--- NOTE | 2018-11-20 11:18 | PDOC1 ---
History and Physical Date of Admission Date of Admission 11/19/18 Identification/Chief Complaint Chief Complaint bright red rectal bleeding Source Source: Chart review, Patient History of Present Illness History of Present Illness She has a hx of colon cancer and resection and has had GI bleeding in the past requiring hospitalization and she had BRB with BM and she presented to ER and found to have heme positive stool and admitted but not initially anemic, no further bleeding overnight. She also had some upper abdominal pain and was noted to have an elevated Amylase which has since returned to normal and a likely UTI Past Medical History Cardiovascular: CHF, HTN, Hyperlipidemia, Pulmonary hypertension Pulmonary: No pertinent hx CENTRAL NERVOUS SYSTEM: Periperal neuropathy GI: Other Heme/Onc: Cancer Hepatobiliary: No pertinent hx Infectious disease: No pertinent hx Renal/: Chronic renal insuff Endocrine: Diabetes Past Surgical History Past Surgical History: Total hip replacement, Colon Resection Family History Family History: Other Social History Smoke: No ALCOHOL: none Drugs: None Current Problem List Problem List Problems Medical Problems: (1) Upper GI bleed Status: Acute Current Medications Current Medications Current Medications Medications (Trade) Dose Ordered Sig/Ervin Start Time Stop Time Status Last Admin Dose Admin Acetaminophen (Tylenol) 650 mg PRN Q4HRS PRN 11/20/18 01:00 11/20/18 00:59 650 MG Allopurinol (Zyloprim) 100 mg DAILY 11/20/18 09:00 11/20/18 10:08 100 MG Aspirin (Children'S Aspirin) 81 mg DAILY 11/20/18 09:00 Atorvastatin Calcium (Lipitor) 10 mg QHS 11/20/18 21:00 Cilostazol (Pletal) 100 mg BID 11/20/18 09:00 11/20/18 10:16 100 MG Dextrose/Sodium Chloride 1,000 ml @ 125 mls/hr 1X ONCE 11/19/18 22:00 11/20/18 05:59 DC 11/19/18 21:52 125 MLS/HR Famotidine (Pepcid Vial) 20 mg 1X ONCE 11/19/18 22:00 11/19/18 22:01 DC 11/19/18 21:53 20 MG Furosemide (Lasix) 40 mg DAILY08 11/20/18 09:00 11/20/18 10:09 40 MG Gabapentin (Neurontin) 300 mg TID@1300,1700,2100 11/20/18 13:00 Hydrochlorothiazide (Hydrodiuril) 25 mg DAILY 11/20/18 09:00 11/20/18 10:09 25 MG Insulin Glargine (Lantus) 60 units QHS 11/20/18 21:00 Levofloxacin (Levaquin) 500 mg DAILY06 11/20/18 11:00 11/24/18 06:01 Losartan Potassium (Cozaar) 100 mg DAILY 11/20/18 09:00 11/20/18 10:09 100 MG Morphine Sulfate (Morphine Sulfate) 4 mg 1X ONCE 11/19/18 23:30 11/19/18 23:31 DC 11/19/18 23:06 4 MG Ondansetron HCl (Zofran) 4 mg 1X ONCE 11/19/18 22:00 11/19/18 22:01 DC 11/19/18 21:53 4 MG Vitamin D (Vitamin D3) 1,000 unit DAILY 11/20/18 09:00 11/20/18 10:08 1,000 UNIT Zolpidem Tartrate (Ambien) 5 mg PRN QHS PRN 11/20/18 00:45 11/20/18 00:59 5 MG Allergies Allergies Allergies Coded Allergies Type Severity Reaction Last Updated Verified Penicillins Allergy Intermediate 04/15/17 Yes iodine Allergy Intermediate rash 04/15/17 Yes meperidine Allergy Intermediate 04/15/17 Yes ROS Review of System CONSTITUTIONAL: No fever or chills EYES: No recent changes SKIN: recent left breast abscess resolved CARDIOVASCULAR: No chest pain, syncope, palpitations, or edema RESPIRATORY: No SOB or cough GASTROINTESTINAL: see HPI NEUROLOGICAL: No headaches or weakness ENDOCRINE: No cold or heat intolerance GENITOURINARY: No urgency or frequency of urination MUSCULOSKELETAL: No back pain or joint pain LYMPHATICS: No enlarged lymph nodes PSYCHIATRIC: No anxiety or depression Physical Exam Physical Exam GEN.: No apparent distress. Alert and oriented. HEENT: Head is normocephalic, atraumatic NECK: Supple. LUNGS: Clear to auscultation. HEART: RRR, S1, S2 present. Peripheral pulses intact ABDOMEN: Soft, mild epigastric tenderness, negative Guzman's sign. Positive bowel sounds. EXTREMITIES: Without any cyanosis. NEUROLOGIC: Normal speech, normal tone PSYCHIATRIC: Normal affect, normal mood. SKIN: No ulcerations Vitals Vitals Vital Signs Date Time Temp Pulse Resp B/P (MAP) Pulse Ox O2 Delivery O2 Flow Rate FiO2 11/20/18 10:09 90 142/81 11/20/18 08:00 Room Air 11/20/18 07:00 98.2 18 98 98.2 Labs Labs Laboratory Tests Test 11/19/18 21:40 11/19/18 22:30 11/19/18 23:40 11/20/18 04:38 White Blood Count 5.2 x10^3/uL (4.0-11.0) Red Blood Count 4.56 x10^6/uL (3.50-5.40) Hemoglobin 12.5 g/dL (12.0-15.5) Hematocrit 38.3 % (36.0-47.0) Mean Corpuscular Volume 84 fL (79-100) Mean Corpuscular Hemoglobin 27 pg (25-35) Mean Corpuscular Hemoglobin Concent 33 g/dL (31-37) Red Cell Distribution Width 15.4 % (11.5-14.5) Platelet Count 252 x10^3/uL (140-400) Neutrophils (%) (Auto) 60 % (31-73) Lymphocytes (%) (Auto) 26 % (24-48) Monocytes (%) (Auto) 11 % (0-9) Eosinophils (%) (Auto) 2 % (0-3) Basophils (%) (Auto) 1 % (0-3) Neutrophils # (Auto) 3.1 x10^3uL (1.8-7.7) Lymphocytes # (Auto) 1.4 x10^3/uL (1.0-4.8) Monocytes # (Auto) 0.6 x10^3/uL (0.0-1.1) Eosinophils # (Auto) 0.1 x10^3/uL (0.0-0.7) Basophils # (Auto) 0.0 x10^3/uL (0.0-0.2) Prothrombin Time 12.5 SEC (11.7-14.0) Prothromb Time International Ratio 1.0 (0.8-1.1) Activated Partial Thromboplast Time 29 SEC (24-38) Sodium Level 140 mmol/L (136-145) Potassium Level 3.7 mmol/L (3.5-5.1) Chloride Level 104 mmol/L (98-107) Carbon Dioxide Level 26 mmol/L (21-32) Anion Gap 10 (6-14) Blood Urea Nitrogen 23 mg/dL (7-20) Creatinine 1.4 mg/dL (0.6-1.0) Estimated GFR (Cockcroft-Gault) 43.8 Glucose Level 190 mg/dL (70-99) Calcium Level 9.0 mg/dL (8.5-10.1) Lipase 466 U/L (73-393) Stool Occult Blood Positive (NEG) Glucose (Fingerstick) 188 mg/dL (70-99) Test 11/20/18 07:21 11/20/18 09:10 11/20/18 10:15 Glucose (Fingerstick) 135 mg/dL (70-99) White Blood Count 4.0 x10^3/uL (4.0-11.0) Red Blood Count 4.21 x10^6/uL (3.50-5.40) Hemoglobin 11.4 g/dL (12.0-15.5) Hematocrit 36.6 % (36.0-47.0) Mean Corpuscular Volume 87 fL (79-100) Mean Corpuscular Hemoglobin 27 pg (25-35) Mean Corpuscular Hemoglobin Concent 31 g/dL (31-37) Red Cell Distribution Width 15.6 % (11.5-14.5) Platelet Count 194 x10^3/uL (140-400) Neutrophils (%) (Auto) 54 % (31-73) Lymphocytes (%) (Auto) 28 % (24-48) Monocytes (%) (Auto) 14 % (0-9) Eosinophils (%) (Auto) 3 % (0-3) Basophils (%) (Auto) 1 % (0-3) Neutrophils # (Auto) 2.2 x10^3uL (1.8-7.7) Lymphocytes # (Auto) 1.1 x10^3/uL (1.0-4.8) Monocytes # (Auto) 0.6 x10^3/uL (0.0-1.1) Eosinophils # (Auto) 0.1 x10^3/uL (0.0-0.7) Basophils # (Auto) 0.0 x10^3/uL (0.0-0.2) Sodium Level 142 mmol/L (136-145) Potassium Level 4.3 mmol/L (3.5-5.1) Chloride Level 106 mmol/L (98-107) Carbon Dioxide Level 23 mmol/L (21-32) Anion Gap 13 (6-14) Blood Urea Nitrogen 19 mg/dL (7-20) Creatinine 1.4 mg/dL (0.6-1.0) Estimated GFR (Cockcroft-Gault) 43.8 BUN/Creatinine Ratio 14 (6-20) Glucose Level 220 mg/dL (70-99) Calcium Level 8.3 mg/dL (8.5-10.1) Total Bilirubin 0.4 mg/dL (0.2-1.0) Aspartate Amino Transf (AST/SGOT) 13 U/L (15-37) Alanine Aminotransferase (ALT/SGPT) 16 U/L (14-59) Alkaline Phosphatase 79 U/L (46-116) Total Protein 6.0 g/dL (6.4-8.2) Albumin 2.8 g/dL (3.4-5.0) Albumin/Globulin Ratio 0.9 (1.0-1.7) Amylase Level 42 U/L (25-115) Lipase 116 U/L (73-393) Urine Collection Type Unknown Urine Color Yellow Urine Clarity Clear Urine pH 5.5 Urine Specific Brandon 1.020 Urine Protein 100 mg/dL (NEG-TRACE) Urine Glucose (UA) Negative mg/dL (NEG) Urine Ketones (Stick) Negative mg/dL (NEG) Urine Blood Negative (NEG) Urine Nitrite Negative (NEG) Urine Bilirubin Negative (NEG) Urine Urobilinogen Dipstick 1.0 mg/dL (0.2 mg/dL) Urine Leukocyte Esterase Small (NEG) Urine RBC 0 /HPF (0-2) Urine WBC 11-20 /HPF (0-4) Urine Squamous Epithelial Cells Few /LPF Urine Bacteria Many /HPF (0-FEW) Laboratory Tests Test 11/19/18 21:40 11/19/18 22:30 11/19/18 23:40 11/20/18 04:38 White Blood Count 5.2 x10^3/uL (4.0-11.0) Red Blood Count 4.56 x10^6/uL (3.50-5.40) Hemoglobin 12.5 g/dL (12.0-15.5) Hematocrit 38.3 % (36.0-47.0) Mean Corpuscular Volume 84 fL (79-100) Mean Corpuscular Hemoglobin 27 pg (25-35) Mean Corpuscular Hemoglobin Concent 33 g/dL (31-37) Red Cell Distribution Width 15.4 % (11.5-14.5) Platelet Count 252 x10^3/uL (140-400) Neutrophils (%) (Auto) 60 % (31-73) Lymphocytes (%) (Auto) 26 % (24-48) Monocytes (%) (Auto) 11 % (0-9) Eosinophils (%) (Auto) 2 % (0-3) Basophils (%) (Auto) 1 % (0-3) Neutrophils # (Auto) 3.1 x10^3uL (1.8-7.7) Lymphocytes # (Auto) 1.4 x10^3/uL (1.0-4.8) Monocytes # (Auto) 0.6 x10^3/uL (0.0-1.1) Eosinophils # (Auto) 0.1 x10^3/uL (0.0-0.7) Basophils # (Auto) 0.0 x10^3/uL (0.0-0.2) Prothrombin Time 12.5 SEC (11.7-14.0) Prothromb Time International Ratio 1.0 (0.8-1.1) Activated Partial Thromboplast Time 29 SEC (24-38) Sodium Level 140 mmol/L (136-145) Potassium Level 3.7 mmol/L (3.5-5.1) Chloride Level 104 mmol/L (98-107) Carbon Dioxide Level 26 mmol/L (21-32) Anion Gap 10 (6-14) Blood Urea Nitrogen 23 mg/dL (7-20) Creatinine 1.4 mg/dL (0.6-1.0) Estimated GFR (Cockcroft-Gault) 43.8 Glucose Level 190 mg/dL (70-99) Calcium Level 9.0 mg/dL (8.5-10.1) Lipase 466 U/L (73-393) Stool Occult Blood Positive (NEG) Glucose (Fingerstick) 188 mg/dL (70-99) Test 11/20/18 07:21 11/20/18 09:10 11/20/18 10:15 Glucose (Fingerstick) 135 mg/dL (70-99) White Blood Count 4.0 x10^3/uL (4.0-11.0) Red Blood Count 4.21 x10^6/uL (3.50-5.40) Hemoglobin 11.4 g/dL (12.0-15.5) Hematocrit 36.6 % (36.0-47.0) Mean Corpuscular Volume 87 fL (79-100) Mean Corpuscular Hemoglobin 27 pg (25-35) Mean Corpuscular Hemoglobin Concent 31 g/dL (31-37) Red Cell Distribution Width 15.6 % (11.5-14.5) Platelet Count 194 x10^3/uL (140-400) Neutrophils (%) (Auto) 54 % (31-73) Lymphocytes (%) (Auto) 28 % (24-48) Monocytes (%) (Auto) 14 % (0-9) Eosinophils (%) (Auto) 3 % (0-3) Basophils (%) (Auto) 1 % (0-3) Neutrophils # (Auto) 2.2 x10^3uL (1.8-7.7) Lymphocytes # (Auto) 1.1 x10^3/uL (1.0-4.8) Monocytes # (Auto) 0.6 x10^3/uL (0.0-1.1) Eosinophils # (Auto) 0.1 x10^3/uL (0.0-0.7) Basophils # (Auto) 0.0 x10^3/uL (0.0-0.2) Sodium Level 142 mmol/L (136-145) Potassium Level 4.3 mmol/L (3.5-5.1) Chloride Level 106 mmol/L (98-107) Carbon Dioxide Level 23 mmol/L (21-32) Anion Gap 13 (6-14) Blood Urea Nitrogen 19 mg/dL (7-20) Creatinine 1.4 mg/dL (0.6-1.0) Estimated GFR (Cockcroft-Gault) 43.8 BUN/Creatinine Ratio 14 (6-20) Glucose Level 220 mg/dL (70-99) Calcium Level 8.3 mg/dL (8.5-10.1) Total Bilirubin 0.4 mg/dL (0.2-1.0) Aspartate Amino Transf (AST/SGOT) 13 U/L (15-37) Alanine Aminotransferase (ALT/SGPT) 16 U/L (14-59) Alkaline Phosphatase 79 U/L (46-116) Total Protein 6.0 g/dL (6.4-8.2) Albumin 2.8 g/dL (3.4-5.0) Albumin/Globulin Ratio 0.9 (1.0-1.7) Amylase Level 42 U/L (25-115) Lipase 116 U/L (73-393) Urine Collection Type Unknown Urine Color Yellow Urine Clarity Clear Urine pH 5.5 Urine Specific Brandon 1.020 Urine Protein 100 mg/dL (NEG-TRACE) Urine Glucose (UA) Negative mg/dL (NEG) Urine Ketones (Stick) Negative mg/dL (NEG) Urine Blood Negative (NEG) Urine Nitrite Negative (NEG) Urine Bilirubin Negative (NEG) Urine Urobilinogen Dipstick 1.0 mg/dL (0.2 mg/dL) Urine Leukocyte Esterase Small (NEG) Urine RBC 0 /HPF (0-2) Urine WBC 11-20 /HPF (0-4) Urine Squamous Epithelial Cells Few /LPF Urine Bacteria Many /HPF (0-FEW) Images Images CT ABDOMEN PELVIS WO CONTRAST Indication: Upper abdominal pain for 2 or 3 months. Exposure: One or more of the following individualized dose reduction techniques were utilized for this examination: 1. Automated exposure control 2. Adjustment of the mA and/or kV according to patient size 3. Use of iterative reconstruction technique. Comparison: None are available. Technique: No intravenous contrast given. No oral contrast per request. Findings: Evaluation of solid viscera, bowel and vasculature is compromised by the noncontrast technique. Findings: There is mild atelectasis or fibrosis in the right lung base. Liver and spleen do not appear significantly enlarged. Pancreas demonstrates no peripancreatic fluid or inflammatory type change. No evidence of adrenal mass. No evidence of right renal calculus or ureteric calculus. Tiny calcification at the left lower kidney is probably vascular. No hydronephrosis or obstructive change. Note that the distal ureters are poorly seen bilaterally due to artifact from a right hip replacement. There is mild left perinephric stranding. No evidence of calcified gallstone. The aorta is calcified, no aneurysm identified. No significant lymph node enlargement. There is mild wall thickening of the duodenum, probably just due to lack of distention. There is no significant surrounding stranding. No significant small bowel distention. There appear to be some anastomotic sutures in the distal colon. Diverticulosis. No evidence of acute colitis. Appendix appears normal. No evidence of ascites. No evidence of pneumoperitoneum. No significant urinary bladder wall thickening, note that the inferior bladder is poorly seen due to the metal artifact. No evidence of loss of vertebral body height. There is degenerative spondylosis with spondylolisthesis of L4-L5. There is a right hip replacement. IMPRESSION: Stranding in the left perinephric fat, possibilities include inflammatory or infectious process such as pyelonephritis. There does not appear to be left obstructive uropathy at this time. Distal ureters obscured by metal artifact from the right hip replacement. VTE Prophylaxis Ordered VTE Prophylaxis Devices: Yes VTE Pharmacological Prophylaxi: No Assessment/Plan Assessment/Plan GI bleed - stool heme positive but Hgb stable, she doesn't seem to have active bleeding at this time, hx of colon cancer and resection UTI/pyelonephritis per imaging - IV levaquin - await cx DM 2 with DPN CKD CAD, chronic stable, controlled, continue home meds HLP- continue home meds OA - s/p hip replacements Magui WATERS MD November 20, 2018 11:18
--- NOTE | 2018-11-20 12:00 | NUR ---
Pt notified this RN that her home Gabapentin is 300mg with breakfast and 600mg at bedtime only. Home medication list updated.
[2018-11-20] MEDS ORDERED: GABA300C18 PO (12:36)
[2018-11-20] MEDS ORDERED: GABA600T7 PO (12:36)
[2018-11-20] MEDS ORDERED: HYDROcodone/APAP 5/325MG 1 TAB TABLET PO PRN (15:45)
[2018-11-20] MEDS: GABAPENTIN 300 MG CAPSULE. PO SCH (22:21)
[2018-11-20] MEDS: HYDROcodone/APAP 5/325MG 1 TAB TABLET PO PRN (22:21)
[2018-11-20] MEDS: ATORVASTATIN CALCIUM 10 MG TABLET. PO SCH (22:22)
[2018-11-20] MEDS: INSULIN GLARGINE 300 UNITS/3 ML INSULN.PEN. SQ SCH (22:30)
[2018-11-21 03:03] VITALS: BP 124/56
[2018-11-21] MEDS: HYDROcodone/APAP 5/325MG 1 TAB TABLET PO PRN (05:30)
[2018-11-21 06:31] LABS: HEMATOCRIT 34.3 % (36.0-47.0); HEMOGLOBIN 11.3 g/dL (12.0-15.5); RED BLOOD COUNT 4.02 x10^6/uL (3.50-5.40); RED CELL DISTRIBUTION WIDTH 15.5 % (11.5-14.5); WHITE BLOOD COUNT 3.9 x10^3/uL (4.0-11.0)
[2018-11-21 07:08] VITALS: BP 128/59
[2018-11-21] MEDS: FUROSEMIDE 40 MG TABLET. PO SCH (08:00)
[2018-11-21] MEDS ORDERED: LOSA25TA54 PO (08:14)
[2018-11-21] MEDS: PANTOPRAZOLE 40 MG TABLET.DR. PO SCH (08:30)
--- NOTE | 2018-11-21 08:33 | PDOC ---
PROGRESS NOTES Subjective Subjective Patient reports some epigastric pain persists. Denies nausea. Mild dysuria. Objective Objective Vital Signs Date Time Temp Pulse Resp B/P (MAP) Pulse Ox O2 Delivery O2 Flow Rate FiO2 11/21/18 07:08 98.1 83 18 128/59 (82) 100 Room Air 98.1 Intake and Output 11/21/18 06:59 Intake Total 330 ml Balance 330 ml Intake Oral 330 ml # Voids 4 Physical Exam Abdomen: Normal bowel sounds, Soft, Other (scant epigastric TTP without guarding or rebound) Heart: Regular rate Extremities: No edema General: Alert, Oriented X3, No acute distress Lungs: Clear to auscultation Assessment Assessment Problems Medical Problems: (1) Upper GI bleed Status: Acute Plan Plan of Care 1. Lower GI bleed - appears to have resolved and Hgb stable. Continue to follow. 2. UTI with possible pyelonephritis - stable, afebrile, continue Levaquin and aw ait urine culture result. Patient encouraged increased po fluids. 3 epigastric pain - possibility of pancreatitis on CT and lipase mildly elevated on lab at admission but normal yesterday. Will try Protonix. 4. HTN - patient takes Losartan 25mg at home, home medication list corrected and new orders written with correct home meds. 5. DM2 - controlled, continue insulins. 6. CKD III - stable on lab. Comment Review of Relevant I have reviewed the following items dayami (where applicable) has been applied. Labs Laboratory Tests Test 11/19/18 21:40 11/19/18 22:30 11/19/18 23:40 11/20/18 04:38 White Blood Count 5.2 x10^3/uL (4.0-11.0) Red Blood Count 4.56 x10^6/uL (3.50-5.40) Hemoglobin 12.5 g/dL (12.0-15.5) Hematocrit 38.3 % (36.0-47.0) Mean Corpuscular Volume 84 fL (79-100) Mean Corpuscular Hemoglobin 27 pg (25-35) Mean Corpuscular Hemoglobin Concent 33 g/dL (31-37) Red Cell Distribution Width 15.4 % (11.5-14.5) Platelet Count 252 x10^3/uL (140-400) Neutrophils (%) (Auto) 60 % (31-73) Lymphocytes (%) (Auto) 26 % (24-48) Monocytes (%) (Auto) 11 % (0-9) Eosinophils (%) (Auto) 2 % (0-3) Basophils (%) (Auto) 1 % (0-3) Neutrophils # (Auto) 3.1 x10^3uL (1.8-7.7) Lymphocytes # (Auto) 1.4 x10^3/uL (1.0-4.8) Monocytes # (Auto) 0.6 x10^3/uL (0.0-1.1) Eosinophils # (Auto) 0.1 x10^3/uL (0.0-0.7) Basophils # (Auto) 0.0 x10^3/uL (0.0-0.2) Prothrombin Time 12.5 SEC (11.7-14.0) Prothromb Time International Ratio 1.0 (0.8-1.1) Activated Partial Thromboplast Time 29 SEC (24-38) Sodium Level 140 mmol/L (136-145) Potassium Level 3.7 mmol/L (3.5-5.1) Chloride Level 104 mmol/L (98-107) Carbon Dioxide Level 26 mmol/L (21-32) Anion Gap 10 (6-14) Blood Urea Nitrogen 23 mg/dL (7-20) Creatinine 1.4 mg/dL (0.6-1.0) Estimated GFR (Cockcroft-Gault) 43.8 Glucose Level 190 mg/dL (70-99) Calcium Level 9.0 mg/dL (8.5-10.1) Lipase 466 U/L (73-393) Stool Occult Blood Positive (NEG) Glucose (Fingerstick) 188 mg/dL (70-99) Test 11/20/18 07:21 11/20/18 09:10 11/20/18 10:15 11/20/18 11:30 Glucose (Fingerstick) 135 mg/dL (70-99) 219 mg/dL (70-99) White Blood Count 4.0 x10^3/uL (4.0-11.0) Red Blood Count 4.21 x10^6/uL (3.50-5.40) Hemoglobin 11.4 g/dL (12.0-15.5) Hematocrit 36.6 % (36.0-47.0) Mean Corpuscular Volume 87 fL (79-100) Mean Corpuscular Hemoglobin 27 pg (25-35) Mean Corpuscular Hemoglobin Concent 31 g/dL (31-37) Red Cell Distribution Width 15.6 % (11.5-14.5) Platelet Count 194 x10^3/uL (140-400) Neutrophils (%) (Auto) 54 % (31-73) Lymphocytes (%) (Auto) 28 % (24-48) Monocytes (%) (Auto) 14 % (0-9) Eosinophils (%) (Auto) 3 % (0-3) Basophils (%) (Auto) 1 % (0-3) Neutrophils # (Auto) 2.2 x10^3uL (1.8-7.7) Lymphocytes # (Auto) 1.1 x10^3/uL (1.0-4.8) Monocytes # (Auto) 0.6 x10^3/uL (0.0-1.1) Eosinophils # (Auto) 0.1 x10^3/uL (0.0-0.7) Basophils # (Auto) 0.0 x10^3/uL (0.0-0.2) Sodium Level 142 mmol/L (136-145) Potassium Level 4.3 mmol/L (3.5-5.1) Chloride Level 106 mmol/L (98-107) Carbon Dioxide Level 23 mmol/L (21-32) Anion Gap 13 (6-14) Blood Urea Nitrogen 19 mg/dL (7-20) Creatinine 1.4 mg/dL (0.6-1.0) Estimated GFR (Cockcroft-Gault) 43.8 BUN/Creatinine Ratio 14 (6-20) Glucose Level 220 mg/dL (70-99) Calcium Level 8.3 mg/dL (8.5-10.1) Total Bilirubin 0.4 mg/dL (0.2-1.0) Aspartate Amino Transf (AST/SGOT) 13 U/L (15-37) Alanine Aminotransferase (ALT/SGPT) 16 U/L (14-59) Alkaline Phosphatase 79 U/L (46-116) Total Protein 6.0 g/dL (6.4-8.2) Albumin 2.8 g/dL (3.4-5.0) Albumin/Globulin Ratio 0.9 (1.0-1.7) Amylase Level 42 U/L (25-115) Lipase 116 U/L (73-393) Urine Collection Type Unknown Urine Color Yellow Urine Clarity Clear Urine pH 5.5 Urine Specific Warren 1.020 Urine Protein 100 mg/dL (NEG-TRACE) Urine Glucose (UA) Negative mg/dL (NEG) Urine Ketones (Stick) Negative mg/dL (NEG) Urine Blood Negative (NEG) Urine Nitrite Negative (NEG) Urine Bilirubin Negative (NEG) Urine Urobilinogen Dipstick 1.0 mg/dL (0.2 mg/dL) Urine Leukocyte Esterase Small (NEG) Urine RBC 0 /HPF (0-2) Urine WBC 11-20 /HPF (0-4) Urine Squamous Epithelial Cells Few /LPF Urine Bacteria Many /HPF (0-FEW) Test 11/20/18 16:33 11/20/18 22:25 11/21/18 06:10 11/21/18 07:39 Glucose (Fingerstick) 191 mg/dL (70-99) 206 mg/dL (70-99) 117 mg/dL (70-99) White Blood Count 3.9 x10^3/uL (4.0-11.0) Red Blood Count 4.02 x10^6/uL (3.50-5.40) Hemoglobin 11.3 g/dL (12.0-15.5) Hematocrit 34.3 % (36.0-47.0) Mean Corpuscular Volume 85 fL (79-100) Mean Corpuscular Hemoglobin 28 pg (25-35) Mean Corpuscular Hemoglobin Concent 33 g/dL (31-37) Red Cell Distribution Width 15.5 % (11.5-14.5) Platelet Count 202 x10^3/uL (140-400) Laboratory Tests Test 11/20/18 09:10 11/20/18 10:15 11/20/18 11:30 11/20/18 16:33 White Blood Count 4.0 x10^3/uL (4.0-11.0) Red Blood Count 4.21 x10^6/uL (3.50-5.40) Hemoglobin 11.4 g/dL (12.0-15.5) Hematocrit 36.6 % (36.0-47.0) Mean Corpuscular Volume 87 fL (79-100) Mean Corpuscular Hemoglobin 27 pg (25-35) Mean Corpuscular Hemoglobin Concent 31 g/dL (31-37) Red Cell Distribution Width 15.6 % (11.5-14.5) Platelet Count 194 x10^3/uL (140-400) Neutrophils (%) (Auto) 54 % (31-73) Lymphocytes (%) (Auto) 28 % (24-48) Monocytes (%) (Auto) 14 % (0-9) Eosinophils (%) (Auto) 3 % (0-3) Basophils (%) (Auto) 1 % (0-3) Neutrophils # (Auto) 2.2 x10^3uL (1.8-7.7) Lymphocytes # (Auto) 1.1 x10^3/uL (1.0-4.8) Monocytes # (Auto) 0.6 x10^3/uL (0.0-1.1) Eosinophils # (Auto) 0.1 x10^3/uL (0.0-0.7) Basophils # (Auto) 0.0 x10^3/uL (0.0-0.2) Sodium Level 142 mmol/L (136-145) Potassium Level 4.3 mmol/L (3.5-5.1) Chloride Level 106 mmol/L (98-107) Carbon Dioxide Level 23 mmol/L (21-32) Anion Gap 13 (6-14) Blood Urea Nitrogen 19 mg/dL (7-20) Creatinine 1.4 mg/dL (0.6-1.0) Estimated GFR (Cockcroft-Gault) 43.8 BUN/Creatinine Ratio 14 (6-20) Glucose Level 220 mg/dL (70-99) Calcium Level 8.3 mg/dL (8.5-10.1) Total Bilirubin 0.4 mg/dL (0.2-1.0) Aspartate Amino Transf (AST/SGOT) 13 U/L (15-37) Alanine Aminotransferase (ALT/SGPT) 16 U/L (14-59) Alkaline Phosphatase 79 U/L (46-116) Total Protein 6.0 g/dL (6.4-8.2) Albumin 2.8 g/dL (3.4-5.0) Albumin/Globulin Ratio 0.9 (1.0-1.7) Amylase Level 42 U/L (25-115) Lipase 116 U/L (73-393) Urine Collection Type Unknown Urine Color Yellow Urine Clarity Clear Urine pH 5.5 Urine Specific Warren 1.020 Urine Protein 100 mg/dL (NEG-TRACE) Urine Glucose (UA) Negative mg/dL (NEG) Urine Ketones (Stick) Negative mg/dL (NEG) Urine Blood Negative (NEG) Urine Nitrite Negative (NEG) Urine Bilirubin Negative (NEG) Urine Urobilinogen Dipstick 1.0 mg/dL (0.2 mg/dL) Urine Leukocyte Esterase Small (NEG) Urine RBC 0 /HPF (0-2) Urine WBC 11-20 /HPF (0-4) Urine Squamous Epithelial Cells Few /LPF Urine Bacteria Many /HPF (0-FEW) Glucose (Fingerstick) 219 mg/dL (70-99) 191 mg/dL (70-99) Test 11/20/18 22:25 11/21/18 06:10 11/21/18 07:39 Glucose (Fingerstick) 206 mg/dL (70-99) 117 mg/dL (70-99) White Blood Count 3.9 x10^3/uL (4.0-11.0) Red Blood Count 4.02 x10^6/uL (3.50-5.40) Hemoglobin 11.3 g/dL (12.0-15.5) Hematocrit 34.3 % (36.0-47.0) Mean Corpuscular Volume 85 fL (79-100) Mean Corpuscular Hemoglobin 28 pg (25-35) Mean Corpuscular Hemoglobin Concent 33 g/dL (31-37) Red Cell Distribution Width 15.5 % (11.5-14.5) Platelet Count 202 x10^3/uL (140-400) Medications Current Medications Famotidine (Pepcid Vial) 20 mg 1X ONCE IVP Last administered on 11/19/18at 21:53; Start 11/19/18 at 22:00; Stop 11/19/18 at 22:01; Status DC Ondansetron HCl (Zofran) 4 mg 1X ONCE IV Last administered on 11/19/18at 21:53; Start 11/19/18 at 22:00; Stop 11/19/18 at 22:01; Status DC Morphine Sulfate (Morphine Sulfate) 4 mg 1X ONCE IV Last administered on 11/19/18 21:52; Start 11/19/18 at 22:00; Stop 11/19/18 at 22:01; Status DC Dextrose/Sodium Chloride 1,000 ml @ 125 mls/hr 1X ONCE IV Last administered on 11/19/18 21:52; Start 11/19/18 at 22:00; Stop 11/20/18 at 05:59; Status DC Morphine Sulfate (Morphine Sulfate) 4 mg 1X ONCE IV Last administered on 11/19/18 23:06; Start 11/19/18 at 23:30; Stop 11/19/18 at 23:31; Status DC Zolpidem Tartrate (Ambien) 5 mg PRN QHS PRN PO INSOMNIA Last administered on 11/20/18 22:44; Start 11/20/18 at 00:45 Acetaminophen (Tylenol) 650 mg PRN Q4HRS PRN PO MILD PAIN Last administered on 11/20/18 15:28; Start 11/20/18 at 01:00 Allopurinol (Zyloprim) 100 mg DAILY PO Last administered on 11/20/18 10:08; Start 11/20/18 at 09:00 Aspirin (Children'S Aspirin) 81 mg DAILY PO ; Start 11/20/18 at 09:00 Furosemide (Lasix) 40 mg DAILY08 PO Last administered on 11/20/18 10:09; Start 11/20/18 at 09:00 Gabapentin (Neurontin) 300 mg TID PO ; Start 11/20/18 at 09:00; Status Cancel Gabapentin (Neurontin) 600 mg DAILYWBKFT PO Last administered on 11/20/18 10:09; Start 11/20/18 at 09:00; Stop 11/20/18 at 12:37; Status DC Insulin Glargine (Lantus) 60 units QHS SQ Last administered on 11/20/18 22:30; Start 11/20/18 at 21:00 Vitamin D (Vitamin D3) 1,000 unit DAILY PO Last administered on 11/20/18 1 0:08; Start 11/20/18 at 09:00 Cilostazol (Pletal) 100 mg BID PO Last administered on 11/20/18 22:20; Start 11/20/18 at 09:00 Levofloxacin (Levaquin) 500 mg DAILY06 PO ; Start 11/20/18 at 11:00; Stop 11/20/18 at 11:14; Status DC Losartan Potassium (Cozaar) 100 mg DAILY PO Last administered on 11/20/18at 10:09; Start 11/20/18 at 09:00 Atorvastatin Calcium (Lipitor) 10 mg QHS PO Last administered on 11/20/18at 22:22; Start 11/20/18 at 21:00 Gabapentin (Neurontin) 300 mg TID@1300,1700,2100 PO ; Start 11/20/18 at 13:00; Stop 11/20/18 at 13:00; Status DC Hydrochlorothiazide (Hydrodiuril) 25 mg DAILY PO Last administered on 11/20/18at 10:09; Start 11/20/18 at 09:00 Levofloxacin/ Dextrose 100 ml @ 100 mls/hr 1X ONCE IV Last administered on 11/20/18at 12:23; Start 11/20/18 at 12:00; Stop 11/20/18 at 12:59; Status DC Levofloxacin/ Dextrose 100 ml @ 100 mls/hr Q24H IV ; Start 11/21/18 at 12:00; Stop 11/21/18 at 12:00; Status DC Gabapentin (Neurontin) 300 mg DAILY PO ; Start 11/21/18 at 09:00 Gabapentin (Neurontin) 600 mg QHS PO Last administered on 11/20/18at 22:21; Start 11/20/18 at 21:00 Acetaminophen/ Hydrocodone Bitart (Lortab 5/325) 1 tab PRN Q6HRS PRN PO MODERATE PAIN Last administered on 11/20/18at 16:27; Start 11/20/18 at 15:45 Acetaminophen/ Hydrocodone Bitart (Lortab 5/325) 2 tab PRN Q6HRS PRN PO SEVERE PAIN Last administered on 11/21/18at 05:30; Start 11/20/18 at 15:45 Levofloxacin/ Dextrose 50 ml @ 50 mls/hr Q24H IV ; Start 11/21/18 at 12:00 Active Scripts Active Losartan Potassium (Losartan Potassium) 25 Mg Tablet 25 Mg PO DAILY 30 Days Levofloxacin 500 Mg Tablet 1 Tab PO DAILY Reported Gabapentin (Gabapentin) 300 Mg Capsule 300 Mg PO DAILY Gabapentin 600 Mg Tablet 600 Mg PO HS Zolpidem Tartrate 5 Mg Tablet 5 Mg PO PRN QHS PRN Allopurinol 100 Mg Tablet 1 Tab PO DAILY Pravastatin Sodium 40 Mg Tablet 1 Tab PO QHS Vitamin D (Cholecalciferol (Vitamin D3)) 1,000 Unit Capsule 1 Cap PO DAILY Novolog Flexpen (Insulin Aspart) 100 Unit/1 Ml Insuln.pen 20 Unit SQ with meals if BG > 150 Aspirin 81 Mg Tab.chew 1 Tab PO DAILY Cilostazol 100 Mg Tablet 1 Tab PO BID Furosemide 40 Mg Tablet 40 Mg PO DAILY08 Lantus Solostar (Insulin Glargine,Hum.rec.anlog) 100 Unit/1 Ml Insuln.pen 60 Unit SQ QHS Vitals/I & O Vital Sign - Last 24 Hours 11/20/18 11/20/18 11/20/18 11/20/18 10:09 11:00 15:00 19:50 Temp 98.3 98.5 98.5 98.3 98.5 98.5 Pulse 90 92 80 56 Resp 18 14 18 B/P (MAP) 142/81 124/82 (96) 148/68 (94) 137/67 (90) Pulse Ox 98 95 96 O2 Delivery Room Air Room Air Room Air 11/20/18 11/20/18 11/20/18 11/21/18 20:00 22:21 23:29 03:03 Temp 98.6 98.2 98.6 98.2 Pulse 80 71 Resp 20 16 B/P (MAP) 137/76 (96) 124/56 (78) Pulse Ox 98 94 O2 Delivery Room Air Room Air Room Air Room Air 11/21/18 11/21/18 11/21/18 05:30 06:30 07:08 Temp 98.1 98.1 Pulse 83 Resp 18 B/P (MAP) 128/59 (82) Pulse Ox 100 O2 Delivery Room Air Room Air Room Air Intake and Output 11/20/18 11/20/18 11/21/18 14:59 22:59 06:59 Intake Total 330 ml Balance 330 ml FUNMILAYO VILLAVICENCIO MD November 21, 2018 08:33
[2018-11-21] MEDS: CILOSTAZOL 50 MG TABLET. PO SCH ×2 (09:00→22:43)
[2018-11-21] MEDS: ASPIRIN CHEWABLE 81 MG TABLET. PO SCH (09:00)
[2018-11-21] MEDS: CHOLECALCIFEROL (VITAMIN D3) 1,000 UNIT TABLET PO SCH (09:01)
[2018-11-21] MEDS: GABAPENTIN 300 MG CAPSULE. PO SCH ×2 (09:01→21:42)
[2018-11-21] MEDS: ALLOPURINOL 100 MG TABLET. PO SCH (09:01)
[2018-11-21] MEDS: LOSARTAN POTASSIUM 25 MG TABLET. PO SCH (09:03)
[2018-11-21 10:41] VITALS: BP 136/62
[2018-11-21] MEDS ORDERED: DEXTROSE 50% 25 GM / 50ML DISP.SYRIN. IV PRN (12:15)
[2018-11-21] MEDS: LACTOBACILLUS RHAMNOSUS GG 1 CAPSULE. PO SCH ×2 (12:25→21:41)
[2018-11-21] MEDS: INSULIN LISPRO 300 UNITS/3 ML INSULN.PEN. SQ SCH ×2 (12:32→16:48)
[2018-11-21] MEDS: ACETAMINOPHEN 325 MG TABLET. PO PRN (13:22)
--- NOTE | 2018-11-21 14:46 | NUR ---
SW consulted for advance directives. Chart reviewed and MARCO A RN. Pt lives at home with spouse and is independent with ADL's. Pt completed AD form and a copy placed on chart. Pt is provided with original AD form and copies to take home.
[2018-11-21 15:00] VITALS: BP 128/65
[2018-11-21] MEDS ORDERED: traMADol 50 MG TABLET PO PRN ×2 (16:45)
[2018-11-21 19:00] VITALS: BP 153/79
[2018-11-21] MEDS: ATORVASTATIN CALCIUM 10 MG TABLET. PO SCH (21:42)
[2018-11-21] MEDS: ZOLPIDEM 5 MG TABLET. PO PRN (21:46)
[2018-11-21] MEDS: INSULIN GLARGINE 300 UNITS/3 ML INSULN.PEN. SQ SCH (21:54)
[2018-11-21 23:00] VITALS: BP 143/79
[2018-11-22 02:58] VITALS: BP 124/67
[2018-11-22 07:00] VITALS: BP 143/79
[2018-11-22] MEDS: PANTOPRAZOLE 40 MG TABLET.DR. PO SCH (08:27)
[2018-11-22] MEDS: FUROSEMIDE 40 MG TABLET. PO SCH (08:27)
[2018-11-22] MEDS: ASPIRIN CHEWABLE 81 MG TABLET. PO SCH (08:28)
[2018-11-22] MEDS: LACTOBACILLUS RHAMNOSUS GG 1 CAPSULE. PO SCH (08:29)
[2018-11-22] MEDS: ALLOPURINOL 100 MG TABLET. PO SCH (08:29)
[2018-11-22] MEDS: LOSARTAN POTASSIUM 25 MG TABLET. PO SCH (08:29)
[2018-11-22] MEDS: CHOLECALCIFEROL (VITAMIN D3) 1,000 UNIT TABLET PO SCH (08:30)
[2018-11-22] MEDS: CILOSTAZOL 50 MG TABLET. PO SCH (08:30)
[2018-11-22] MEDS: GABAPENTIN 300 MG CAPSULE. PO SCH (08:30)
[2018-11-22] MEDS: INSULIN LISPRO 300 UNITS/3 ML INSULN.PEN. SQ SCH (08:44)
--- NOTE | 2018-11-22 08:44 | PDOC ---
PROGRESS NOTES Subjective Subjective Patient reports some intermittent epigastric pain, not at present. No nausea. Objective Objective Vital Signs Date Time Temp Pulse Resp B/P (MAP) Pulse Ox O2 Delivery O2 Flow Rate FiO2 11/22/18 07:00 98.7 86 18 143/79 (100) 95 Room Air 98.7 Intake and Output 11/22/18 06:59 Intake Total 1260 ml Balance 1260 ml Intake Oral 1260 ml # Voids 8 Physical Exam Abdomen: Normal bowel sounds, Soft, No tenderness Heart: Regular rate Extremities: No edema General: Alert, Oriented X3, No acute distress Lungs: Clear to auscultation Assessment Assessment Problems Medical Problems: (1) Upper GI bleed Status: Acute Plan Plan of Care 1. Lower GI bleed - resolved and Hgb stable. Home today. 2. probable UTI - culture still pending. Levaquin today. Patient advised to call our office tomorrow AM for culture results and further abx tx if indicated. 3. epigastric pain/possible dyspepsia - patient declined the Protonix ordered for her yesterday, states she did not understand what it was for. Discussed. Will take today and continue for several weeks at home to see if it is helpful for her. CT abdomen and pelvis at admission did not show any abnormalities in the area of her pain. Ate regular breakfast today with good appetite. 4. HTN - controlled, continue Losartan. 5. DM2 - stable, continue her usual insulins. Comment Review of Relevant I have reviewed the following items dayami (where applicable) has been applied. Labs Laboratory Tests Test 11/20/18 09:10 11/20/18 10:15 11/20/18 11:30 11/20/18 16:33 White Blood Count 4.0 x10^3/uL (4.0-11.0) Red Blood Count 4.21 x10^6/uL (3.50-5.40) Hemoglobin 11.4 g/dL (12.0-15.5) Hematocrit 36.6 % (36.0-47.0) Mean Corpuscular Volume 87 fL (79-100) Mean Corpuscular Hemoglobin 27 pg (25-35) Mean Corpuscular Hemoglobin Concent 31 g/dL (31-37) Red Cell Distribution Width 15.6 % (11.5-14.5) Platelet Count 194 x10^3/uL (140-400) Neutrophils (%) (Auto) 54 % (31-73) Lymphocytes (%) (Auto) 28 % (24-48) Monocytes (%) (Auto) 14 % (0-9) Eosinophils (%) (Auto) 3 % (0-3) Basophils (%) (Auto) 1 % (0-3) Neutrophils # (Auto) 2.2 x10^3uL (1.8-7.7) Lymphocytes # (Auto) 1.1 x10^3/uL (1.0-4.8) Monocytes # (Auto) 0.6 x10^3/uL (0.0-1.1) Eosinophils # (Auto) 0.1 x10^3/uL (0.0-0.7) Basophils # (Auto) 0.0 x10^3/uL (0.0-0.2) Sodium Level 142 mmol/L (136-145) Potassium Level 4.3 mmol/L (3.5-5.1) Chloride Level 106 mmol/L (98-107) Carbon Dioxide Level 23 mmol/L (21-32) Anion Gap 13 (6-14) Blood Urea Nitrogen 19 mg/dL (7-20) Creatinine 1.4 mg/dL (0.6-1.0) Estimated GFR (Cockcroft-Gault) 43.8 BUN/Creatinine Ratio 14 (6-20) Glucose Level 220 mg/dL (70-99) Calcium Level 8.3 mg/dL (8.5-10.1) Total Bilirubin 0.4 mg/dL (0.2-1.0) Aspartate Amino Transf (AST/SGOT) 13 U/L (15-37) Alanine Aminotransferase (ALT/SGPT) 16 U/L (14-59) Alkaline Phosphatase 79 U/L (46-116) Total Protein 6.0 g/dL (6.4-8.2) Albumin 2.8 g/dL (3.4-5.0) Albumin/Globulin Ratio 0.9 (1.0-1.7) Amylase Level 42 U/L (25-115) Lipase 116 U/L (73-393) Urine Collection Type Unknown Urine Color Yellow Urine Clarity Clear Urine pH 5.5 Urine Specific Watson 1.020 Urine Protein 100 mg/dL (NEG-TRACE) Urine Glucose (UA) Negative mg/dL (NEG) Urine Ketones (Stick) Negative mg/dL (NEG) Urine Blood Negative (NEG) Urine Nitrite Negative (NEG) Urine Bilirubin Negative (NEG) Urine Urobilinogen Dipstick 1.0 mg/dL (0.2 mg/dL) Urine Leukocyte Esterase Small (NEG) Urine RBC 0 /HPF (0-2) Urine WBC 11-20 /HPF (0-4) Urine Squamous Epithelial Cells Few /LPF Urine Bacteria Many /HPF (0-FEW) Glucose (Fingerstick) 219 mg/dL (70-99) 191 mg/dL (70-99) Test 11/20/18 22:25 11/21/18 06:10 11/21/18 07:39 11/21/18 11:25 Glucose (Fingerstick) 206 mg/dL (70-99) 117 mg/dL (70-99) 293 mg/dL (70-99) White Blood Count 3.9 x10^3/uL (4.0-11.0) Red Blood Count 4.02 x10^6/uL (3.50-5.40) Hemoglobin 11.3 g/dL (12.0-15.5) Hematocrit 34.3 % (36.0-47.0) Mean Corpuscular Volume 85 fL (79-100) Mean Corpuscular Hemoglobin 28 pg (25-35) Mean Corpuscular Hemoglobin Concent 33 g/dL (31-37) Red Cell Distribution Width 15.5 % (11.5-14.5) Platelet Count 202 x10^3/uL (140-400) Test 11/21/18 16:43 11/21/18 20:08 11/22/18 07:53 Glucose (Fingerstick) 117 mg/dL (70-99) 256 mg/dL (70-99) 175 mg/dL (70-99) Laboratory Tests Test 11/21/18 11:25 11/21/18 16:43 11/21/18 20:08 11/22/18 07:53 Glucose (Fingerstick) 293 mg/dL (70-99) 117 mg/dL (70-99) 256 mg/dL (70-99) 175 mg/dL (70-99) Medications Current Medications Famotidine (Pepcid Vial) 20 mg 1X ONCE IVP Last administered on 11/19/18 21:53; Start 11/19/18 at 22:00; Stop 11/19/18 at 22:01; Status DC Ondansetron HCl (Zofran) 4 mg 1X ONCE IV Last administered on 11/19/18 21:53; Start 11/19/18 at 22:00; Stop 11/19/18 at 22:01; Status DC Morphine Sulfate (Morphine Sulfate) 4 mg 1X ONCE IV Last administered on 11/19/18 21:52; Start 11/19/18 at 22:00; Stop 11/19/18 at 22:01; Status DC Dextrose/Sodium Chloride 1,000 ml @ 125 mls/hr 1X ONCE IV Last administered on 11/19/18 21:52; Start 11/19/18 at 22:00; Stop 11/20/18 at 05:59; Status DC Morphine Sulfate (Morphine Sulfate) 4 mg 1X ONCE IV Last administered on 11/19/18 23:06; Start 11/19/18 at 23:30; Stop 11/19/18 at 23:31; Status DC Zolpidem Tartrate (Ambien) 5 mg PRN QHS PRN PO INSOMNIA Last administered on 11/21/18 21:46; Start 11/20/18 at 00:45 Acetaminophen (Tylenol) 650 mg PRN Q4HRS PRN PO MILD PAIN Last administered on 11/21/18 13:22; Start 11/20/18 at 01:00 Allopurinol (Zyloprim) 100 mg DAILY PO Last administered on 11/21/18 09:01; Start 11/20/18 at 09:00 Aspirin (Children'S Aspirin) 81 mg DAILY PO Last administered on 11/21/18 09:00; Start 11/20/18 at 09:00 Furosemide (Lasix) 40 mg DAILY08 PO Last administered on 11/20/18 10:09; Start 11/20/18 at 09:00 Gabapentin (Neurontin) 300 mg TID PO ; Start 11/20/18 at 09:00; Status Cancel Gabapentin (Neurontin) 600 mg DAILYWBKFT PO Last administered on 11/20/18 10:09; Start 11/20/18 at 09:00; Stop 11/20/18 at 12:37; Status DC Insulin Glargine (Lantus) 60 units QHS SQ Last administered on 11/21/18at 21:54; Start 11/20/18 at 21:00 Vitamin D (Vitamin D3) 1,000 unit DAILY PO Last administered on 11/21/18at 09:01; Start 11/20/18 at 09:00 Cilostazol (Pletal) 100 mg BID PO Last administered on 11/21/18at 22:43; Start 11/20/18 at 09:00 Levofloxacin (Levaquin) 500 mg DAILY06 PO ; Start 11/20/18 at 11:00; Stop 11/20/18 at 11:14; Status DC Losartan Potassium (Cozaar) 100 mg DAILY PO Last administered on 11/20/18at 10:09; Start 11/20/18 at 09:00; Stop 11/21/18 at 08:29; Status DC Atorvastatin Calcium (Lipitor) 10 mg QHS PO Last administered on 11/21/18at 21:42; Start 11/20/18 at 21:00 Gabapentin (Neurontin) 300 mg TID@1300,1700,2100 PO ; Start 11/20/18 at 13:00; Stop 11/20/18 at 13:00; Status DC Hydrochlorothiazide (Hydrodiuril) 25 mg DAILY PO Last administered on 11/20/18at 10:09; Start 11/20/18 at 09:00; Stop 11/21/18 at 08:29; Status DC Levofloxacin/ Dextrose 100 ml @ 100 mls/hr 1X ONCE IV Last administered on 11/20/18at 12:23; Start 11/20/18 at 12:00; Stop 11/20/18 at 12:59; Status DC Levofloxacin/ Dextrose 100 ml @ 100 mls/hr Q24H IV ; Start 11/21/18 at 12:00; Stop 11/21/18 at 12:00; Status DC Gabapentin (Neurontin) 300 mg DAILY PO Last administered on 11/21/18at 09:01; Start 11/21/18 at 09:00 Gabapentin (Neurontin) 600 mg QHS PO Last administered on 11/21/18at 21:42; Start 11/20/18 at 21:00 Acetaminophen/ Hydrocodone Bitart (Lortab 5/325) 1 tab PRN Q6HRS PRN PO MODERATE PAIN Last administered on 11/20/18at 16:27; Start 11/20/18 at 15:45; Stop 11/21/18 at 08:29; Status DC Acetaminophen/ Hydrocodone Bitart (Lortab 5/325) 2 tab PRN Q6HRS PRN PO SEVERE PAIN Last administered on 11/21/18at 05:30; Start 11/20/18 at 15:45; Stop 11/21/18 at 08:29; Status DC Levofloxacin/ Dextrose 50 ml @ 50 mls/hr Q24H IV Last administered on 11/21/18at 12:25; Start 11/21/18 at 12:00 Losartan Potassium (Cozaar) 25 mg DAILY PO Last administered on 11/21/18at 09:03; Start 11/21/18 at 09:00 Pantoprazole Sodium (Protonix) 40 mg DAILYAC PO ; Start 11/21/18 at 08:30 Lactobacillus Rhamnosus (Culturelle) 1 cap BID PO Last administered on 11/21/18at 21:41; Start 11/21/18 at 13:00 Insulin Human Lispro (HumaLOG) 0-9 UNITS TIDWMEALS SQ Last administered on 11/21/18at 12:32; Start 11/21/18 at 12:30 Dextrose (Dextrose 50%-Water Syringe) 12.5 gm PRN Q15MIN PRN IV SEE COMMENTS; Start 11/21/18 at 12:15 Tramadol HCl (Ultram) 50 mg PRN Q6HRS PRN PO MILD PAIN Last administered on 11/21/18at 16:59; Start 11/21/18 at 16:45 Tramadol HCl (Ultram) 100 mg PRN Q6HRS PRN PO MODERATE PAIN; Start 11/21/18 at 16:45 Active Scripts Active Losartan Potassium (Losartan Potassium) 25 Mg Tablet 25 Mg PO DAILY 30 Days Levofloxacin 500 Mg Tablet 1 Tab PO DAILY Reported Gabapentin (Gabapentin) 300 Mg Capsule 300 Mg PO DAILY Gabapentin 600 Mg Tablet 600 Mg PO HS Zolpidem Tartrate 5 Mg Tablet 5 Mg PO PRN QHS PRN Allopurinol 100 Mg Tablet 1 Tab PO DAILY Pravastatin Sodium 40 Mg Tablet 1 Tab PO QHS Vitamin D (Cholecalciferol (Vitamin D3)) 1,000 Unit Capsule 1 Cap PO DAILY Novolog Flexpen (Insulin Aspart) 100 Unit/1 Ml Insuln.pen 20 Unit SQ with meals if BG > 150 Aspirin 81 Mg Tab.chew 1 Tab PO DAILY Cilostazol 100 Mg Tablet 1 Tab PO BID Furosemide 40 Mg Tablet 40 Mg PO DAILY08 Lantus Solostar (Insulin Glargine,Hum.rec.anlog) 100 Unit/1 Ml Insuln.pen 60 Unit SQ QHS Vitals/I & O Vital Sign - Last 24 Hours 11/21/18 11/21/18 11/21/18 11/21/18 09:03 10:41 15:00 19:00 Temp 98.5 98.1 98.2 98.5 98.1 98.2 Pulse 83 97 86 89 Resp 20 18 18 B/P (MAP) 128/59 136/62 (86) 128/65 (86) 153/79 (103) Pulse Ox 96 97 97 O2 Delivery Room Air Room Air Room Air 11/21/18 11/21/18 11/22/18 11/22/18 20:20 23:00 02:58 07:00 Temp 98.7 98.8 98.7 98.7 98.8 98.7 Pulse 86 83 86 Resp 18 17 18 B/P (MAP) 143/79 (100) 124/67 (86) 143/79 (100) Pulse Ox 95 94 95 O2 Delivery Room Air Room Air Room Air Room Air Intake and Output 11/21/18 11/21/18 11/22/18 14:59 22:59 06:59 Intake Total 440 ml 220 ml 600 ml Balance 440 ml 220 ml 600 ml FUNMILAYO VILLAVICENCIO MD November 22, 2018 08:44
[2018-11-22] MEDS ORDERED: Pantoprazole PO (08:50)
[2018-11-22] MEDS ORDERED: FURO40TA4 PO (08:50)
[2018-11-22 10:49] VITALS: BP 134/64
--- NOTE | 2018-11-22 12:12 | DS ---
DATE OF DISCHARGE: 11/22/2018 CHIEF COMPLAINT: Rectal bleeding. HISTORY OF PRESENT ILLNESS: The patient is an 82-year-old female with a history of colon cancer and previous GI bleeds. She presented to the Emergency Room with the above complaint. She had the onset of some bright red blood with a bowel movement on the day of admission. She also had some upper abdominal pain in the epigastric area. Initial evaluation in the Emergency Room showed her to have heme-positive stool. Initial hemoglobin was 12.5 and the patient was admitted for further care. HOSPITAL COURSE: The patient had no further rectal bleeding during her hospital stay. Her hemoglobin decreased slightly and then stabilized at 11.3. A CT of the abdomen and pelvis showed the possibility of left perinephric stranding, but no abnormalities in the area of the patient's upper abdominal pain. Lipase was mildly elevated at admission, but returned to normal by the next day. The patient had evidence of urinary tract infection at admission with 11-20 wbc's. She was started on Levaquin for empiric treatment of this. A urine culture was ordered, but the results are still pending. She will be given a dose of Levaquin prior to discharge today and advised to call our office tomorrow morning for culture results and further antibiotics if indicated. The patient's epigastric pain is intermittent. She is tolerating a regular diet with a good appetite. We will try starting her on pantoprazole to see if this improves her symptoms and this can be followed as an outpatient. The patient's blood pressure and diabetes were controlled with her usual medications. She has chronic kidney disease stage 3, which is stable on her lab. FINAL DIAGNOSES: 1. Acute lower gastrointestinal bleed. 2. Urinary tract infection. 3. Dyspepsia. 4. Hypertension. 5. Diabetes mellitus type 2, insulin-dependent. 6. Chronic kidney disease stage 3. DISCHARGE MEDICATIONS: Pantoprazole 40 mg daily, allopurinol 100 mg daily, aspirin 81 mg daily, vitamin D [id number], cilostazol 100 mg b.i.d., gabapentin 300 mg q.a.m. and 600 mg at bedtime, NovoLog insulin 20 units subcutaneous t.i.d. a.c., Lantus insulin 60 units at bedtime, losartan 25 mg daily, pravastatin 40 mg daily, zolpidem 5 mg at bedtime p.r.n., furosemide 40 mg p.r.n. leg swelling. FOLLOWUP: Followup is with Dr. Geiger as needed. FUNMILAYO GEIGER MD DR: YOLA/raheem JOB#: [id number] / [id number] JANAED
--- NOTE | 2018-11-22 12:45 | NUR ---
Patient was discharged from the unit at 1255. Patient was taken from the unit in a wheelchair accompanied by staff to a private vehicle of her family. Patient left the unit with her belongings and discharge paperwork. Discharge paperwork was discussed with the patient prior to discharge and she had no questions or concerns regarding the information.
== END 2018-11-22 12:50 | disposition home or self-care (01) | DRG 378 ==
LOC: ER 21:19 → 6 SOUTH 21:30 → 5 NORTH 11-21 14:06
PROVIDERS: ADMIT Family Medicine; ATTEND Family Medicine
DX: K92.2 Gastrointestinal hemorrhage, unspecified (principal); N12 Tubulo-interstitial nephritis, not specified as acute or chronic; I13.0 Hypertensive heart and chronic kidney disease with heart failure and stage 1 through stage 4 chronic kidney disease, or unspecified chronic kidney disease; I25.10 Atherosclerotic heart disease of native coronary artery without angina pectoris; E11.22 Type 2 diabetes mellitus with diabetic chronic kidney disease; E78.5 Hyperlipidemia, unspecified; I50.9 Heart failure, unspecified; Z96.641 Presence of right artificial hip joint; N18.3 Chronic kidney disease, stage 3 (moderate); Z79.4 Long term (current) use of insulin; Z85.038 Personal history of other malignant neoplasm of large intestine; Z90.710 Acquired absence of both cervix and uterus; Z88.0 Allergy status to penicillin; Z88.8 Allergy status to other drugs, medicaments and biological substances
CPT/HCPCS: 36415; 74176; 80048; 80053; 81001; 82150; 82274; 82962; 83690; 85025; 85027; 85610; 85730; 87086; 87186; 96365; 96375; J1815; J1956; J2270; J2405; J3490; J7042; 99285-25

== ENCOUNTER 2019-02-13 17:10 | Emergency (ER) | payer MEDICARE, BC ==
[~2019-02-13] VITALS: Ht 165.1 cm; Wt 95.3 kg
[~2019-02-13 17:10] MED LIST changes: +GABA600T7 PO; +LOSA1TAB22 PO; +Pantoprazole PO; +ZOLP5TAB5 PO
[2019-02-13] MEDS ORDERED: IPRATRPIUM/ALBUTEROL 0.5/2.5MG 3 ML NEBU. NEB ONE (18:30)
[2019-02-13] MEDS ORDERED: methylPREDNISolone SOD SUCC PF 125 MG/2 ML VIAL. IV ONE (18:30)
[2019-02-13 18:44] LABS: BILIRUBIN,URINE NEGATIVE (NEG); CLARITY,URINE CLEAR; COLOR,URINE YELLOW; NITRITE,URINE NEGATIVE (NEG); PH,URINE 7.5; PROTEIN,URINE >=300 mg/dL (NEG-TRACE)
[2019-02-13 19:00] LABS: BASO % 1 % (0-3); EOS # 0.1 x10^3/uL (0.0-0.7); EOS % 1 % (0-3); HEMATOCRIT 34.5 % (36.0-47.0); HEMOGLOBIN 11.2 g/dL (12.0-15.5); LYMPH # 1.3 x10^3/uL (1.0-4.8); LYMPH % 29 % (24-48); MEAN CORPUSCULAR HEMOGLOBIN 27 pg (25-35); MEAN CORPUSCULAR HGB CONC 33 g/dL (31-37); MEAN CORPUSCULAR VOLUME 82 fL (79-100); MONO # 0.6 x10^3/uL (0.0-1.1); MONO % 14 % (0-9); NEUT # 2.6 x10^3/uL (1.8-7.7); NEUT % 56 % (31-73); PLATELET COUNT 250 x10^3/uL (140-400); RED BLOOD COUNT 4.21 x10^6/uL (3.50-5.40); RED CELL DISTRIBUTION WIDTH 15.6 % (11.5-14.5); WHITE BLOOD COUNT 4.7 x10^3/uL (4.0-11.0)
[2019-02-13 19:14] LABS: BACTERIA,URINE MANY /HPF (0-FEW); RBC,URINE OCC /HPF (0-2); SQUAMOUS EPITHELIAL CELL,UR FEW /LPF; WBC,URINE OCC /HPF (0-4)
[2019-02-13 19:15] LABS: CALCIUM 9.4 mg/dL (8.5-10.1); CREATININE 1.2 mg/dL (0.6-1.0); GFR 52.2; POTASSIUM 4.1 mmol/L (3.5-5.1)
[2019-02-13 19:20] LABS: ALBUMIN 3.6 g/dL (3.4-5.0); MAGNESIUM 1.8 mg/dL (1.8-2.4); TOTAL BILIRUBIN 0.5 mg/dL (0.2-1.0); TOTAL PROTEIN 7.3 g/dL (6.4-8.2)
--- NOTE | 2019-02-13 19:40 | PHYS DOC ---
Past Medical History Past Medical History: Diabetes-Type II, Renal Disease Additional Past Medical Histor: Colon Cancer (ENDY MONTANA APRN) Past Surgical History: Hip Replacement, Hysterectomy, Other Additional Past Surgical Histo: COLONECTOMY (ENDY MONTANA APRN) Alcohol Use: None Drug Use: None (ENDY MONTANA APRN) Adult General Chief Complaint Chief Complaint: ABDOMINAL PAIN HPI HPI 83-year-old female presents to ER via POV for complaints of diffuse abdominal pain and concerns for constipation. Pt reports she has been taking stool softeners. She denies N/V/D. She denies urinary sxs. She denies swelling. Patient reports also she has been having productive cough with green phlegm. Pt denies fever. Patient states symptoms have been ongoing for the past 1-1/2 weeks and current pain at 9 out of 10. She denies CP/palpitations. She states she has had some SOA- denies currently. (ENDY MONTANA APRN) Review of Systems Review of Systems Constitutional: Denies fever or chills [] Eyes: Denies change in visual acuity, redness, or eye pain [] HENT: Denies nasal congestion or sore throat [] Respiratory: Reports prod. cough and some SOA Cardiovascular: Denies CP/palpitations GI: Denies nausea, vomiting, bloody stools or diarrhea. Reports generalized abd pain without focal area. Reports concerns for constipation : Denies dysuria or hematuria [] Musculoskeletal: Denies back/neck pain or joint pain [] Integument: Denies rash or skin lesions [] Neurologic: Denies headache, focal weakness or sensory changes. Denies dizziness Endocrine: Denies polyuria or polydipsia [] All other systems were reviewed and found to be within normal limits, except as documented in this note. (ENDY MONTANA APRN) Current Medications Current Medications Current Medications Medications (Trade) Dose Ordered Sig/Ervin Start Time Stop Time Status Last Admin Dose Admin Albuterol/ Ipratropium (Duoneb) 3 ml 1X ONCE 02/13/19 18:30 02/13/19 18:31 DC 02/13/19 18:34 3 ML Fentanyl Citrate (Fentanyl 2ml Vial) 25 mcg 1X ONCE 02/13/19 20:00 02/13/19 20:06 DC Methylprednisolone Sodium Succinate (SOLU-Medrol 125MG VIAL) 125 mg 1X ONCE 02/13/19 18:30 02/13/19 18:31 DC 02/13/19 19:10 125 MG Morphine Sulfate (Morphine Sulfate) 2 mg 1X ONCE 02/13/19 20:15 02/13/19 20:16 DC 02/13/19 20:20 2 MG Sodium Chloride 500 ml @ 500 mls/hr 1X ONCE 02/13/19 19:45 02/13/19 20:44 DC 02/13/19 20:21 500 MLS/HR (SANIYA ACEVEDO MD) Allergies Allergies Allergies Coded Allergies Type Severity Reaction Last Updated Verified Penicillins Allergy Intermediate 04/15/17 Yes iodine Allergy Intermediate rash 04/15/17 Yes meperidine Allergy Intermediate 04/15/17 Yes (SANIYA ACEVEDO MD) Physical Exam Physical Exam Constitutional: Well developed, well nourished, no acute distress, non-toxic appearance. [] HENT: Normocephalic, atraumatic, oropharynx moist, nose normal. [] Eyes: Pupils equal, conjunctiva normal, no discharge. [] Neck: Normal range of motion, no tenderness, supple, no stridor. [] Cardiovascular: Heart rate regular rhythm, no murmur [] Lungs & Thorax: Rt side expiratory wheezing- diminished air movement throughout all lung sarmiento with less air movement in bases. Speaking in full sentences. Resp. equal/nonlabored Abdomen: Bowel sounds normal, soft/obese, diffuse tenderness on palp of abd- no focal area/rebound tenderness. No masses, no pulsatile masses. [] Skin: Warm, dry, no erythema, no rash. [] Back: No tenderness, no CVA tenderness. [] Extremities: No tenderness, no cyanosis, no clubbing, ROM intact, no edema. [] Neurologic: Alert and oriented X 3, normal motor function, normal sensory function, no focal deficits noted. [] Psychologic: Affect normal, judgement normal, mood normal. [] (REFFITT,ENDY Jessica APRN) Current Patient Data Vital Signs Vital Signs Date Time Temp Pulse Resp B/P (MAP) Pulse Ox O2 Delivery O2 Flow Rate FiO2 02/13/19 21:24 93 16 195/87 (123) 99 Room Air 02/13/19 17:59 99.1 99.1 (SANIYA ACEVEDO MD) Lab Values Laboratory Tests Test 02/13/19 18:30 02/13/19 18:55 Urine Collection Type Void Urine Color Yellow Urine Clarity Clear Urine pH 7.5 Urine Specific Plessis 1.015 Urine Protein >=300 mg/dL (NEG-TRACE) Urine Glucose (UA) Negative mg/dL (NEG) Urine Ketones (Stick) Negative mg/dL (NEG) Urine Blood Negative (NEG) Urine Nitrite Negative (NEG) Urine Bilirubin Negative (NEG) Urine Urobilinogen Dipstick 1.0 mg/dL (0.2 mg/dL) Urine Leukocyte Esterase Negative (NEG) Urine RBC Occ /HPF (0-2) Urine WBC Occ /HPF (0-4) Urine Squamous Epithelial Cells Few /LPF Urine Bacteria Many /HPF (0-FEW) White Blood Count 4.7 x10^3/uL (4.0-11.0) Red Blood Count 4.21 x10^6/uL (3.50-5.40) Hemoglobin 11.2 g/dL (12.0-15.5) L Hematocrit 34.5 % (36.0-47.0) L Mean Corpuscular Volume 82 fL (79-100) Mean Corpuscular Hemoglobin 27 pg (25-35) Mean Corpuscular Hemoglobin Concent 33 g/dL (31-37) Red Cell Distribution Width 15.6 % (11.5-14.5) H Platelet Count 250 x10^3/uL (140-400) Neutrophils (%) (Auto) 56 % (31-73) Lymphocytes (%) (Auto) 29 % (24-48) Monocytes (%) (Auto) 14 % (0-9) H Eosinophils (%) (Auto) 1 % (0-3) Basophils (%) (Auto) 1 % (0-3) Neutrophils # (Auto) 2.6 x10^3/uL (1.8-7.7) Lymphocytes # (Auto) 1.3 x10^3/uL (1.0-4.8) Monocytes # (Auto) 0.6 x10^3/uL (0.0-1.1) Eosinophils # (Auto) 0.1 x10^3/uL (0.0-0.7) Basophils # (Auto) 0.0 x10^3/uL (0.0-0.2) Sodium Level 138 mmol/L (136-145) Potassium Level 4.1 mmol/L (3.5-5.1) Chloride Level 101 mmol/L (98-107) Carbon Dioxide Level 24 mmol/L (21-32) Anion Gap 13 (6-14) Blood Urea Nitrogen 15 mg/dL (7-20) Creatinine 1.2 mg/dL (0.6-1.0) H Estimated GFR (Cockcroft-Gault) 52.2 BUN/Creatinine Ratio 13 (6-20) Glucose Level 82 mg/dL (70-99) Lactic Acid Level 1.0 mmol/L (0.4-2.0) Calcium Level 9.4 mg/dL (8.5-10.1) Magnesium Level 1.8 mg/dL (1.8-2.4) Total Bilirubin 0.5 mg/dL (0.2-1.0) Aspartate Amino Transferase (AST) 16 U/L (15-37) Alanine Aminotransferase (ALT) 17 U/L (14-59) Alkaline Phosphatase 86 U/L (46-116) Troponin I Quantitative < 0.017 ng/mL (0.000-0.055) VR-Gzb-D-Type Natriuretic Peptide 509 pg/mL (0-449) H Total Protein 7.3 g/dL (6.4-8.2) Albumin 3.6 g/dL (3.4-5.0) Albumin/Globulin Ratio 1.0 (1.0-1.7) Laboratory Tests 02/13/19 18:55 Laboratory Tests 02/13/19 18:55 (SANIYA ACEVEDO MD) EKG EKG EKG obtained 02/13/19 at [address] Acevedo Sinus rhythm Ltward axis Rate 96 No STEMI (ENDY MONTANA APRN) Radiology/Procedures Radiology/Procedures PROCEDURE: CT ABDOMEN PELVIS WO CONTRAST PQRS Compliance Statement: One or more of the following individualized dose reduction techniques were utilized for this examination: 1. Automated exposure control 2. Adjustment of the mA and/or kV according to patient size 3. Use of iterative reconstruction technique CT abdomen/pelvis without contrast 02/13/2019 7:55 PM INDICATION: Constipation and abdominal pain COMPARISON: CT abdomen/pelvis November 19, 2018 TECHNIQUE: Multiple axial CT images of the abdomen and pelvis were obtained without intravenous contrast. Coronal and sagittal reformats are provided. FINDINGS: Bandlike consolidative change at the right lung base may represent subsegmental atelectasis versus less likely developing infiltrate. Heart size is borderline enlarged. There is a small hiatal hernia. Evaluation of the solid abdominal viscera is limited by lack of intravenous contrast. Liver, spleen, bilateral adrenal glands and pancreas are normal in appearance. Gallbladder is present without adjacent inflammation. Abdominal aorta is normal in course and caliber with moderate calcified atheromatous plaque. There are no pathologically enlarged lymph nodes in abdomen and pelvis. There is no free fluid or free intraperitoneal air. Bowel anastomosis is identified at the rectosigmoid junction. Mild colonic diverticulosis. Small and large bowel are normal in caliber. There is no evidence for bowel obstruction. There are no pericolonic inflammatory changes. A normal, nondilated appendix is visualized without adjacent inflammatory changes. Evaluation of the pelvis is limited by streak artifact from right total hip arthroplasty. Bilateral perinephric edema is identified which appears chronic. No definite hydronephrosis. Limited evaluation of the urinary bladder. No suspicious pelvic mass. Grade 1 anterolisthesis of L4 on L5. No suspicious osseous abnormality. IMPRESSION: Bilateral perinephric edema appears chronic. No evidence for obstructive uropathy. Electronically signed by: Silvestre Amaro MD (02/13/2019 8:29 PM) [facility] DICTATED and SIGNED BY: SILVESTRE AMARO MD DATE: 02/13/192028 (ENDY MONTANA APRN) Course & Med Decision Making Course & Med Decision Making Pertinent Labs and Imaging studies reviewed. (See chart for details) 2049: Discussed test results with pt and her husb. ABCs normal limits at 4.7 with lactic acid at 1.0. EKG with no acute ST elevation or STEMI and troponin was negative. UA negative for infection did show proteinuria which past records patient also had protein in her urine. CT abd/pelvis with report of chronic findings- no report obstruction/acute findings. Discussed with pt's increased coughing possible abd pain r/t coughing episodes/muscle involvement. Pt reports improved sxs following txs received. She is denying pain currently and has equal/nonlabored. Chest x-ray viewed by Dr. Acevedo with probable RLL infiltr. Pt was given Duoneb/IV SoluMedrol and IV flds/pain medication. Admission was offered for further care/monitoring she verbalized understanding of benefits from admission but is adamant on being discharged home. She reports if she starts having more symptoms she would return to the hospital and admission would be considered. Patient plans to call her primary care physician in the morning and schedule a follow-up appointment for reevaluation and further care. Smoking cessation was discussed. Patient will be prescribed Levaquin with discharge paperwork for pneumonia treatment. (ENDY MONTANA APRN) Course & Med Decision Making Staff Physician Addendum: I was working in the ER during the course of this patient's visit. I was available for consultation as needed, but I was not directly involved in the care of this patient. (SANIYA ACEVEDO MD) Dragon Disclaimer Dragon Disclaimer This electronic medical record was generated, in whole or in part, using a voice recognition dictation system. (ENDY MONTANA APRN) Departure Departure Impression: Primary Impression: Abdominal pain Additional Impression: Right lower lobe pulmonary infiltrate Disposition: 01 HOME, SELF-CARE Condition: STABLE Referrals: FUNMILAYO VILLAVICENCIO MD (PCP) Patient Instructions: Abdominal Pain, Pneumonia, Adult, Smoking Cessation Additional Instructions: Drink fluids to keep herself hydrated. Avoid smoking. Tylenol as needed for pain as directed on container. Call as soon as possible and schedule an appointment with your primary care p christinean for reevaluation and further care. If symptoms worsen return to the emergency department for reevaluation. Scripts Levofloxacin (LEVAQUIN) 500 Mg Tablet 1 TAB PO DAILY, #7 TAB 0 Refills Prov: ENDY MONTANA APRN 02/13/19 Hydrocodone/Apap 5-325 (NORCO 5-325 TABLET) 1 Each Tablet 1 TAB PO PRN Q6HRS PRN for PAIN, #8 TAB 0 Refills No driving or drinking alcohol while taking this medication Prov: ENDY MONTANA APRN 02/13/19 Levofloxacin (LEVAQUIN) 500 Mg Tablet 1 TAB PO DAILY, #7 TAB 0 Refills Prov: ENDY MONTANA APRN 02/13/19 Problem Qualifiers ENDY MONTANA APRN Feb 13, 2019 19:40 SANIYA ACEVEDO MD Feb 14, 2019 03:15
[2019-02-13] MEDS ORDERED: IV NORMAL SALINE 500ML BAG 500 ML IV ONE (19:45)
[2019-02-13] MEDS ORDERED: fentaNYL PF VIAL 100 MCG/2 ML VIAL IV ONE (20:00)
[2019-02-13] MEDS ORDERED: MORPHINE SULFATE 2 MG/ML VIAL. IV ONE (20:15)
--- NOTE | 2019-02-13 20:32 | RAD ---
PQRS Compliance Statement: One or more of the following individualized dose reduction techniques were utilized for this examination: 1. Automated exposure control 2. Adjustment of the mA and/or kV according to patient size 3. Use of iterative reconstruction technique CT abdomen/pelvis without contrast 02/13/2019 7:55 PM INDICATION: Constipation and abdominal pain COMPARISON: CT abdomen/pelvis November 19, 2018 TECHNIQUE: Multiple axial CT images of the abdomen and pelvis were obtained without intravenous contrast. Coronal and sagittal reformats are provided. FINDINGS: Bandlike consolidative change at the right lung base may represent subsegmental atelectasis versus less likely developing infiltrate. Heart size is borderline enlarged. There is a small hiatal hernia. Evaluation of the solid abdominal viscera is limited by lack of intravenous contrast. Liver, spleen, bilateral adrenal glands and pancreas are normal in appearance. Gallbladder is present without adjacent inflammation. Abdominal aorta is normal in course and caliber with moderate calcified atheromatous plaque. There are no pathologically enlarged lymph nodes in abdomen and pelvis. There is no free fluid or free intraperitoneal air. Bowel anastomosis is identified at the rectosigmoid junction. Mild colonic diverticulosis. Small and large bowel are normal in caliber. There is no evidence for bowel obstruction. There are no pericolonic inflammatory changes. A normal, nondilated appendix is visualized without adjacent inflammatory changes. Evaluation of the pelvis is limited by streak artifact from right total hip arthroplasty. Bilateral perinephric edema is identified which appears chronic. No definite hydronephrosis. Limited evaluation of the urinary bladder. No suspicious pelvic mass. Grade 1 anterolisthesis of L4 on L5. No suspicious osseous abnormality. IMPRESSION: Bilateral perinephric edema appears chronic. No evidence for obstructive uropathy. Electronically signed by: Dedra Rosas MD (02/13/2019 8:29 PM) [facility]
[2019-02-13 21:24] VITALS: BP 195/87
[2019-02-13] MEDS ORDERED: LEVO500T59 PO ×2 (21:30→21:34)
[2019-02-13] MEDS ORDERED: HYDR-3164 PO (21:34)
--- NOTE | 2019-02-14 07:24 | EKG ---
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
--- NOTE | 2019-02-14 07:59 | RAD ---
CHEST PA LATERAL History: Productive cough Comparison: 10/25/2016 portable chest x-ray. Findings: The cardiomediastinal silhouette is borderline. Pulmonary vasculature is normal. The lungs are clear. Opacity at the left lateral mid thoracic level is similar to previous exam and likely represents overlying soft tissue. Very small pleural effusions are present. There is no acute bone abnormality. IMPRESSION: No acute cardiopulmonary process. Electronically signed by: Stephan Maldonado MD (02/14/2019 7:57 AM) [facility]
== END 2019-02-13 21:37 | disposition home or self-care (01) ==
LOC: ER 17:10
DX: R10.84 Generalized abdominal pain (principal); R91.8 Other nonspecific abnormal finding of lung field; R06.02 Shortness of breath; R05 Cough; N28.9 Disorder of kidney and ureter, unspecified; E11.9 Type 2 diabetes mellitus without complications; Z96.649 Presence of unspecified artificial hip joint; Z90.710 Acquired absence of both cervix and uterus; Z90.49 Acquired absence of other specified parts of digestive tract; Z88.0 Allergy status to penicillin; Z88.1 Allergy status to other antibiotic agents; Z88.8 Allergy status to other drugs, medicaments and biological substances
CPT/HCPCS: 36415; 71046; 74176; 80053; 81001; 83605; 83735; 83880; 84484; 85025; 87040; 87086; 93005; 94640; 96374; 96375; 99285; J2270; J2930; J7040; J7620

== ENCOUNTER 2019-02-17 00:57 | Emergency (ER) | payer MEDICARE, BC ==
[~2019-02-17] VITALS: Ht 162.6 cm; Wt 90.7 kg
[~2019-02-17 00:57] MED LIST changes: +HYDR-3164 PO; +LEVO500T59 PO
[2019-02-17] MEDS ORDERED: VALA1000 PO (01:03)
[2019-02-17] MEDS ORDERED: PRED20TA PO (01:03)
--- NOTE | 2019-02-17 01:03 | PHYS DOC ---
Past Medical History Past Medical History: Diabetes-Type II, Renal Disease Additional Past Medical Histor: Colon Cancer Past Surgical History: Hip Replacement, Hysterectomy, Other Additional Past Surgical Histo: COLONECTOMY Alcohol Use: None Drug Use: None Adult General Chief Complaint Chief Complaint: SHINGLES HPI HPI Patient is a 83 year old [f__sex] who presents with [] Review of Systems Review of Systems Constitutional: Denies fever or chills [] Eyes: Denies change in visual acuity, redness, or eye pain [] HENT: Denies nasal congestion or sore throat [] Respiratory: Denies cough or shortness of breath [] Cardiovascular: No additional information not addressed in HPI [] GI: Denies abdominal pain, nausea, vomiting, bloody stools or diarrhea [] : Denies dysuria or hematuria [] Musculoskeletal: Denies back pain or joint pain [] Integument: Denies rash or skin lesions [] Neurologic: Denies headache, focal weakness or sensory changes [] Endocrine: Denies polyuria or polydipsia [] All other systems were reviewed and found to be within normal limits, except as documented in this note. Current Medications Current Medications Current Medications Medications (Trade) Dose Ordered Sig/Ervin Start Time Stop Time Status Last Admin Dose Admin Dexamethasone (Decadron) 10 mg 1X ONCE 02/17/19 01:00 02/17/19 01:01 UNV Valacyclovir HCl (Valtrex) 1,000 mg 1X ONCE 02/17/19 01:00 02/17/19 01:01 UNV Allergies Allergies Allergies Coded Allergies Type Severity Reaction Last Updated Verified Penicillins Allergy Intermediate 04/15/17 Yes iodine Allergy Intermediate rash 04/15/17 Yes meperidine Allergy Intermediate 04/15/17 Yes Physical Exam Physical Exam Constitutional: Well developed, well nourished, no acute distress, non-toxic appearance. [] HENT: Normocephalic, atraumatic, bilateral external ears normal, oropharynx moist, no oral exudates, nose normal. [] Eyes: PERRLA, EOMI, conjunctiva normal, no discharge. [] Neck: Normal range of motion, no tenderness, supple, no stridor. [] Cardiovascular:Heart rate regular rhythm, no murmur [] Lungs & Thorax: Bilateral breath sounds clear to auscultation [] Abdomen: Bowel sounds normal, soft, no tenderness, no masses, no pulsatile masses. [] Skin: Warm, dry, no erythema, no rash. [] Back: No tenderness, no CVA tenderness. [] Extremities: No tenderness, no cyanosis, no clubbing, ROM intact, no edema. [] Neurologic: Alert and oriented X 3, normal motor function, normal sensory function, no focal deficits noted. [] Psychologic: Affect normal, judgement normal, mood normal. [] EKG EKG [] Radiology/Procedures Radiology/Procedures [] Course & Med Decision Making Course & Med Decision Making Pertinent Labs and Imaging studies reviewed. (See chart for details) [] Dragon Disclaimer Dragon Disclaimer This electronic medical record was generated, in whole or in part, using a voice recognition dictation system. Departure Departure Impression: Primary Impression: Shingles Disposition: HOME, SELF-CARE Condition: STABLE Referrals: FUNMILAYO VILLAVICENCIO MD (PCP) Patient Instructions: Shingles, [id number] Scripts Tramadol Hcl (TRAMADOL HCL) 50 Mg Tablet 50 MG PO Q6HRS PRN for PAIN, #14 TAB Take each tab with one (1) regular strength over the counter Tylenol 325mg Prov: MERON JOHNSON DO 02/17/19 Valacyclovir Hcl (VALACYCLOVIR) 1,000 Mg Tablet 1 TAB PO TID, #21 TAB Prov: MERON JOHNSON DO 02/17/19 Prednisone (PREDNISONE) 20 Mg Tablet 2 TAB PO DAILY, #8 TAB Prov: MERON JOHNSON DO 02/17/19 Problem Qualifiers Primary Impression: Shingles Herpes zoster complications: without complications Qualified Codes: B02.9 - Zoster without complications MERON JOHNSON DO Feb 17, 2019 01:03
[2019-02-17] MEDS ORDERED: TRAM50TA PO (01:09)
[2019-02-17] MEDS ORDERED: traMADol 50 MG TABLET PO ONE (01:30)
[2019-02-17] MEDS ORDERED: DEXAMETHASONE 4 MG TABLET PO ONE (01:30)
[2019-02-17] MEDS ORDERED: valACYclovir 500 MG TABLET. PO ONE (01:30)
== END 2019-02-17 02:01 | disposition home or self-care (01) ==
LOC: ER 00:57
DX: B02.9 Zoster without complications (principal); N28.9 Disorder of kidney and ureter, unspecified; E11.9 Type 2 diabetes mellitus without complications; Z88.0 Allergy status to penicillin; Z88.1 Allergy status to other antibiotic agents; Z88.8 Allergy status to other drugs, medicaments and biological substances
CPT/HCPCS: 99284; J8540

== ENCOUNTER 2019-02-28 12:32 | Emergency (ER) | payer MEDICARE, BC ==
[~2019-02-28] VITALS: Ht 162.6 cm; Wt 99.8 kg
[~2019-02-28 12:32] MED LIST changes: +PRED20TA PO; +TRAM50TA PO; +VALA1000 PO
--- NOTE | 2019-02-28 13:29 | PHYS DOC ---
Past Medical History Past Medical History: Diabetes-Type II, Renal Disease Additional Past Medical Histor: Colon Cancer, Shingles Past Surgical History: Hip Replacement, Hysterectomy, Other Additional Past Surgical Histo: COLECTOMY Additional Information: <1/2 ppd Alcohol Use: None Drug Use: None Adult General Chief Complaint Chief Complaint: ABDOMINAL PAIN HPI HPI Patient is a 83 year old female who presents with complaining of constipation. Patient states she was diagnosed with shingles right side of abdominal wall and back about 10 days ago and started on Ultram. Patient states she did not have it bowel movement for the last 8-10 days and complaining of abdominal distention, anorexia, nausea, lack of flatus. Patient rated her pain 10 over 10 and asking for pain medication as soon as possible. Patient states she usually has bowel movements every other day. Review of Systems Review of Systems Constitutional: Denies fever or chills [] Eyes: Denies change in visual acuity, redness, or eye pain [] HENT: Denies nasal congestion or sore throat [] Respiratory: Denies cough or shortness of breath [] Cardiovascular: No additional information not addressed in HPI [] GI: Reports abdominal pain, nausea, constipation, denies vomiting, bloody stools or diarrhea [] : Denies dysuria or hematuria [] Musculoskeletal: Denies back pain or joint pain [] Integument: Denies rash or skin lesions [] Neurologic: Denies headache, focal weakness or sensory changes [] Endocrine: Denies polyuria or polydipsia [] All other systems were reviewed and found to be within normal limits, except as documented in this note. Current Medications Current Medications Current Medications Medications (Trade) Dose Ordered Sig/Ervin Start Time Stop Time Status Last Admin Dose Admin Fentanyl Citrate (Fentanyl 2ml Vial) 50 mcg 1X ONCE 02/28/19 15:15 02/28/19 15:16 DC 02/28/19 15:03 50 MCG Magnesium Oxide (Magnesium Oxide) 800 mg DAILY 02/28/19 15:00 02/28/19 14:58 800 MG Ondansetron HCl (Zofran) 4 mg 1X ONCE 02/28/19 13:30 02/28/19 13:31 DC 02/28/19 14:08 4 MG Allergies Allergies Allergies Coded Allergies Type Severity Reaction Last Updated Verified Penicillins Allergy Intermediate 04/15/17 Yes iodine Allergy Intermediate rash 04/15/17 Yes meperidine Allergy Intermediate 04/15/17 Yes Physical Exam Physical Exam Constitutional: Well developed, well nourished, mild distress, non-toxic appearance. [] HENT: Normocephalic, atraumatic. Eyes: PERRLA, EOMI, conjunctiva normal, no discharge. [] Neck: Normal range of motion, no tenderness, supple, no stridor. [] Cardiovascular:Heart rate regular rhythm, no murmur [] Lungs & Thorax: Bilateral breath sounds clear to auscultation [] Abdomen: Bowel sounds is hypoactive, mild distention with gas, generalized guarding, soft, no tenderness, no masses, no pulsatile masses. Rectal exam and present of diet consultant showed no stool in the rectum. Skin: Warm, dry, no erythema, no rash. [] Back: No tenderness, no CVA tenderness. [] Extremities: No tenderness, no cyanosis, no clubbing, ROM intact, no edema. [] Neurologic: Alert and oriented X 3, no focal deficits noted. [] Psychologic: Affect anxious, judgement normal, mood normal. [] Current Patient Data Vital Signs Vital Signs Date Time Temp Pulse Resp B/P (MAP) Pulse Ox O2 Delivery O2 Flow Rate FiO2 02/28/19 12:47 99.0 96 24 186/89 (121) 95 Room Air 99.0 Lab Values Laboratory Tests Test 02/28/19 13:40 02/28/19 14:00 Urine Color Yellow Urine Clarity Clear Urine pH 7.0 Urine Specific [place] 1.020 Urine Protein >=300 mg/dL (NEG-TRACE) Urine Glucose (UA) 500 mg/dL (NEG) Urine Ketones (Stick) Negative mg/dL (NEG) Urine Blood Trace (NEG) Urine Nitrite Negative (NEG) Urine Bilirubin Negative (NEG) Urine Urobilinogen Dipstick 2.0 mg/dL (0.2 mg/dL) Urine Leukocyte Esterase Negative (NEG) Urine RBC Occ /HPF (0-2) Urine WBC 1-4 /HPF (0-4) Urine Squamous Epithelial Cells Occ /LPF Urine Bacteria 0 /HPF (0-FEW) Urine Mucus Slight /LPF White Blood Count 4.8 x10^3/uL (4.0-11.0) Red Blood Count 4.08 x10^6/uL (3.50-5.40) Hemoglobin 10.9 g/dL (12.0-15.5) L Hematocrit 32.9 % (36.0-47.0) L Mean Corpuscular Volume 81 fL (79-100) Mean Corpuscular Hemoglobin 27 pg (25-35) Mean Corpuscular Hemoglobin Concent 33 g/dL (31-37) Red Cell Distribution Width 15.7 % (11.5-14.5) H Platelet Count 331 x10^3/uL (140-400) Neutrophils (%) (Auto) 73 % (31-73) Lymphocytes (%) (Auto) 18 % (24-48) L Monocytes (%) (Auto) 9 % (0-9) Eosinophils (%) (Auto) 0 % (0-3) Basophils (%) (Auto) 1 % (0-3) Neutrophils # (Auto) 3.5 x10^3/uL (1.8-7.7) Lymphocytes # (Auto) 0.8 x10^3/uL (1.0-4.8) L Monocytes # (Auto) 0.4 x10^3/uL (0.0-1.1) Eosinophils # (Auto) 0.0 x10^3/uL (0.0-0.7) Basophils # (Auto) 0.0 x10^3/uL (0.0-0.2) Sodium Level 130 mmol/L (136-145) L Potassium Level 4.7 mmol/L (3.5-5.1) Chloride Level 95 mmol/L (98-107) L Carbon Dioxide Level 27 mmol/L (21-32) Anion Gap 8 (6-14) Blood Urea Nitrogen 7 mg/dL (7-20) Creatinine 1.2 mg/dL (0.6-1.0) H Estimated GFR (Cockcroft-Gault) 52.2 BUN/Creatinine Ratio 6 (6-20) Glucose Level 205 mg/dL (70-99) H Calcium Level 9.9 mg/dL (8.5-10.1) Total Bilirubin 0.5 mg/dL (0.2-1.0) Aspartate Amino Transferase (AST) 24 U/L (15-37) Alanine Aminotransferase (ALT) 19 U/L (14-59) Alkaline Phosphatase 92 U/L (46-116) Total Protein 7.8 g/dL (6.4-8.2) Albumin 3.0 g/dL (3.4-5.0) L Albumin/Globulin Ratio 0.6 (1.0-1.7) L Lipase 33 U/L (73-393) L Laboratory Tests 02/28/19 14:00 Laboratory Tests 02/28/19 14:00 EKG EKG [] Radiology/Procedures Radiology/Procedures [facility] [address] [place] [address] IMAGING REPORT Signed PATIENT: MADISON LOFTON ACCOUNT: [id number] : 1935 LOCATION: ER AGE: 83 SEX: F EXAM STATUS: REG ER ORD. PHYSICIAN: SHEREEN VELASQUEZ MD REASON: abdominal pain PROCEDURE: CT ABDOMEN PELVIS WO CONTRAST PQRS Compliance statement: One or more of the following individualized dose reduction techniques were utilized for this examination: 1. Automated exposure control. 2. Adjustment of the mA and/or kV according to patient size. 3. Use of iterative reconstruction technique. Indication:Abdominal pain. TECHNIQUE: CT abdomen and pelvis without IV contrast with multiplanar reformats. COMPARISON: 02/13/2019 FINDINGS: Limited evaluation of solid abdominal and pelvic organs due to lack of IV contrast. Heart is normal in size. No pericardial or pleural effusion. Clear lung bases. Noncontrast appearance of the liver, spleen, gallbladder, pancreas, right adrenal within normal limits. Mild diffuse thickening of the left abdomen gland likely secondary to adenomatous hyperplasia. Elevation of pelvis is limited due to streak artifact from right hip arthroplasty. No hydronephrosis or nephrolithiasis. No free pelvic fluid or ascites. Moderate diffuse atherosclerotic plaque in the abdominal aorta and bilateral iliac arteries. No bowel obstruction. Anastomotic sutures are seen in the sigmoid colon. Mild sigmoid and descending colon diverticulosis. Normal appendix. Small sliding hiatal hernia. Status post hysterectomy. No pneumoperitoneum. No suspicious bony lesion. IMPRESSION: Limited evaluation of solid abdominal and pelvic organs due to lack of IV contrast. 1. No bowel obstruction. 2. No nephrolithiasis or hydronephrosis. Electronically signed by: Vik Kim DO (02/28/2019 1:55 PM) [facility] Course & Med Decision Making Course & Med Decision Making Pertinent Labs and Imaging studies reviewed. (See chart for details) Evaluation of patient in ER showed 83-year-old female patient with history of shingles in abdominal wall on 02/27/2019 and constipation since taking Ultram. Patient had mild distention of abdomen without significant finding. CT did not show acute finding in abdomen and labs was unremarkable except for magnesium of 1.2 and blood sugar of 205. Patient treated with oral magnesium and fentanyl. Patient was very anxious and didn't want to go home and requested physician. Patient's primary care physician Dr. Geiger was informed at 1506 and recommended to discharge patient home with treatment for constipation. Patient was informed about plan of care and she sounded unhappy for not getting hospitalization. Dragon Disclaimer Dragon Disclaimer This electronic medical record was generated, in whole or in part, using a voice recognition dictation system. Departure Departure Impression: Primary Impression: Constipation Additional Impressions: Hypomagnesemia Anxiety about health History of shingles Hyperglycemia Disposition: HOME, SELF-CARE Condition: IMPROVED Referrals: FUNMILAYO GEIGER MD (PCP) Patient Instructions: Constipation, Adult, Hypomagnesemia Additional Instructions: Drink plenty of liquids Follow-up with your primary care physician in 3-5 days Return to ER if not getting better Scripts Magnesium Oxide (MAGNESIUM OXIDE) 400 Mg Tablet 1 TAB PO BID, #14 TAB 0 Refills Prov: SHEREEN VELASQUEZ MD 02/28/19 Peg 3350/Na Sulf,Bicarb,Cl/Kcl (GOLYTELY SOLUTION) 4,000 Ml Soln.recon 4000 ML PO 1X, #1 MISC Drink 1 cup every an hour until having a bowel movements Prov: SHEREEN VELASQUEZ MD 02/28/19 Problem Qualifiers Primary Impression: Constipation Constipation type: unspecified constipation type Qualified Codes: K59.00 - Constipation, unspecified SHEREEN VELASQUEZ MD Feb 28, 2019 13:29
[2019-02-28] MEDS ORDERED: fentaNYL PF VIAL 100 MCG/2 ML VIAL IV ONE ×2 (13:30→15:15)
[2019-02-28] MEDS ORDERED: ONDANSETRON PF 4 MG/2 ML VIAL. IV ONE (13:30)
[2019-02-28 13:47] LABS: BILIRUBIN,URINE NEGATIVE (NEG); CLARITY,URINE CLEAR; COLOR,URINE YELLOW; NITRITE,URINE NEGATIVE (NEG); PROTEIN,URINE >=300 mg/dL (NEG-TRACE)
--- NOTE | 2019-02-28 13:58 | RAD ---
PQRS Compliance statement: One or more of the following individualized dose reduction techniques were utilized for this examination: 1. Automated exposure control. 2. Adjustment of the mA and/or kV according to patient size. 3. Use of iterative reconstruction technique. Indication:Abdominal pain. TECHNIQUE: CT abdomen and pelvis without IV contrast with multiplanar reformats. COMPARISON: 02/13/2019 FINDINGS: Limited evaluation of solid abdominal and pelvic organs due to lack of IV contrast. Heart is normal in size. No pericardial or pleural effusion. Clear lung bases. Noncontrast appearance of the liver, spleen, gallbladder, pancreas, right adrenal within normal limits. Mild diffuse thickening of the left abdomen gland likely secondary to adenomatous hyperplasia. Elevation of pelvis is limited due to streak artifact from right hip arthroplasty. No hydronephrosis or nephrolithiasis. No free pelvic fluid or ascites. Moderate diffuse atherosclerotic plaque in the abdominal aorta and bilateral iliac arteries. No bowel obstruction. Anastomotic sutures are seen in the sigmoid colon. Mild sigmoid and descending colon diverticulosis. Normal appendix. Small sliding hiatal hernia. Status post hysterectomy. No pneumoperitoneum. No suspicious bony lesion. IMPRESSION: Limited evaluation of solid abdominal and pelvic organs due to lack of IV contrast. 1. No bowel obstruction. 2. No nephrolithiasis or hydronephrosis. Electronically signed by: Vik Kim DO (02/28/2019 1:55 PM) [facility]
[2019-02-28 14:07] LABS: BACTERIA,URINE 0 /HPF (0-FEW); RBC,URINE OCC /HPF (0-2); SQUAMOUS EPITHELIAL CELL,UR OCC /LPF
[2019-02-28 14:16] LABS: BASO % 1 % (0-3); EOS % 0 % (0-3); HEMATOCRIT 32.9 % (36.0-47.0); HEMOGLOBIN 10.9 g/dL (12.0-15.5); LYMPH # 0.8 x10^3/uL (1.0-4.8); LYMPH % 18 % (24-48); MEAN CORPUSCULAR HEMOGLOBIN 27 pg (25-35); MEAN CORPUSCULAR HGB CONC 33 g/dL (31-37); MEAN CORPUSCULAR VOLUME 81 fL (79-100); MONO # 0.4 x10^3/uL (0.0-1.1); MONO % 9 % (0-9); NEUT # 3.5 x10^3/uL (1.8-7.7); NEUT % 73 % (31-73); PLATELET COUNT 331 x10^3/uL (140-400); RED BLOOD COUNT 4.08 x10^6/uL (3.50-5.40); RED CELL DISTRIBUTION WIDTH 15.7 % (11.5-14.5); WHITE BLOOD COUNT 4.8 x10^3/uL (4.0-11.0)
[2019-02-28 14:30] LABS: CALCIUM 9.9 mg/dL (8.5-10.1); CREATININE 1.2 mg/dL (0.6-1.0); GFR 52.2; POTASSIUM 4.7 mmol/L (3.5-5.1)
[2019-02-28 14:36] LABS: ALBUMIN/GLOBULIN RATIO 0.6 (1.0-1.7); TOTAL BILIRUBIN 0.5 mg/dL (0.2-1.0); TOTAL PROTEIN 7.8 g/dL (6.4-8.2)
[2019-02-28 15:00] VITALS: BP 195/86
[2019-02-28] MEDS ORDERED: MAGNESIUM OXIDE 400 MG TABLET PO SCH (15:00)
[2019-02-28] MEDS ORDERED: PEG4000S8 PO (15:23)
[2019-02-28] MEDS ORDERED: MAGN400T3 PO (15:23)
== END 2019-02-28 15:34 | disposition home or self-care (01) ==
LOC: ER 12:32
DX: K59.00 Constipation, unspecified (principal); E83.42 Hypomagnesemia; F41.9 Anxiety disorder, unspecified; E11.65 Type 2 diabetes mellitus with hyperglycemia; B02.9 Zoster without complications; N28.9 Disorder of kidney and ureter, unspecified; Z90.710 Acquired absence of both cervix and uterus; Z90.49 Acquired absence of other specified parts of digestive tract; F17.200 Nicotine dependence, unspecified, uncomplicated; Z88.0 Allergy status to penicillin; Z88.1 Allergy status to other antibiotic agents; Z91.041 Radiographic dye allergy status
CPT/HCPCS: 36415; 74176; 80053; 81001; 83690; 85025; 96374; 96375; 96376; 99285; J2405; J3010

== ENCOUNTER 2019-07-31 15:07 | Emergency (ER) | payer MEDICARE, BC ==
[~2019-07-31] VITALS: Ht 162.6 cm; Wt 113.6 kg
[~2019-07-31 15:07] MED LIST changes: +MAGN400T5 PO; +PEG4000S8 PO; +SIMV20TA18 PO; -SIMV20TA3 PO
[2019-07-31 16:24] LABS: BILIRUBIN,URINE NEGATIVE (NEG); CLARITY,URINE CLEAR; COLOR,URINE YELLOW; NITRITE,URINE NEGATIVE (NEG); PROTEIN,URINE NEGATIVE (NEG-TRACE); UROBILINOGEN,URINE 0.2 mg/dL (0.2 mg/dL)
--- NOTE | 2019-07-31 16:29 | PHYS DOC ---
Past Medical History Past Medical History: Diabetes-Type II, High Cholesterol, Hypertension, Renal Disease Additional Past Medical Histor: Colon Cancer, Shingles (ADRIANE MASSEY APRN) Past Surgical History: Hip Replacement, Hysterectomy, Other Additional Past Surgical Histo: COLECTOMY (ADRIANE MASSEY NAIL CUTTER) Alcohol Use: None Drug Use: None (ADRIANE MASSEY APRN) Adult General Chief Complaint Chief Complaint: ABDOMINAL PAIN HPI HPI Patient is a 83 year old female who presents with right upper and mid abdominal pain and distention. She states it feels like sharp stabbing pains. She did have shingles 2 months ago and states that her doctor gave her lidocaine patches to put over the area. This was a long the right mid flank that extended to the right side and around to part of the right upper abdomen area. This is in the area of which she is pointing to. She referred to that's where she put the lidocaine pain patch during her shingles. (ADRIANE MASSEY APRN) Review of Systems Review of Systems GI:upper right abdominal pain, denies nausea, vomiting, bloody stools or diarrhea [] All other systems were reviewed and found to be within normal limits, except as documented in this note. (ADRIANE MASSEY APRN) Current Medications Current Medications Current Medications Medications (Trade) Dose Ordered Sig/Ervin Start Time Stop Time Status Last Admin Dose Admin Fentanyl Citrate (Fentanyl 2ml Vial) 50 mcg 1X ONCE 07/31/19 16:30 07/31/19 16:31 DC 07/31/19 17:33 50 MCG (SHEREEN VELASQUEZ MD) Allergies Allergies Allergies Coded Allergies Type Severity Reaction Last Updated Verified Penicillins Allergy Intermediate 04/15/17 Yes iodine Allergy Intermediate rash 04/15/17 Yes meperidine Allergy Intermediate 07/31/19 Yes (SHEREEN VELASQUEZ MD) Physical Exam Physical Exam Constitutional: Well developed, well nourished, no acute distress, non-toxic appearance. [] HENT: Normocephalic, atraumatic, bilateral external ears normal, oropharynx moist, no oral exudates, nose normal. [] Eyes: PERRLA, EOMI, conjunctiva normal, no discharge. [] Neck: Normal range of motion, no tenderness, supple, no stridor. [] Cardiovascular:Heart rate regular rhythm, no murmur [] Lungs & Thorax: Bilateral breath sounds clear to auscultation [] Abdomen: Bowel sounds normal, soft, Right upper tenderness, no masses, no pulsatile masses. [] Skin: Warm, dry, no erythema, no rash. [] Back: No tenderness, no CVA tenderness. [] Extremities: No tenderness, no cyanosis, no clubbing, ROM intact, no edema. [] Neurologic: Alert and oriented X 3, normal motor function, normal sensory function, no focal deficits noted. [] Psychologic: Affect normal, judgement normal, mood normal. [] (ADRIANE MASSEY APRN) Current Patient Data Vital Signs Vital Signs Date Time Temp Pulse Resp B/P (MAP) Pulse Ox O2 Delivery O2 Flow Rate FiO2 07/31/19 19:00 86 157/77 (103) 98 Room Air 07/31/19 17:33 16 07/31/19 15:50 98.5 98.5 (SHEREEN VELASQUEZ MD) Lab Values Laboratory Tests Test 07/31/19 16:05 07/31/19 16:37 07/31/19 17:55 Urine Collection Type Unknown Urine Color Yellow Urine Clarity Clear Urine pH 7.0 Urine Specific [place] <=1.005 Urine Protein Negative mg/dL (NEG-TRACE) Urine Glucose (UA) Negative mg/dL (NEG) Urine Ketones (Stick) Negative mg/dL (NEG) Urine Blood Negative (NEG) Urine Nitrite Negative (NEG) Urine Bilirubin Negative (NEG) Urine Urobilinogen Dipstick 0.2 mg/dL (0.2 mg/dL) Urine Leukocyte Esterase Negative (NEG) Urine RBC Occ /HPF (0-2) Urine WBC 0 /HPF (0-4) Urine Squamous Epithelial Cells Mod /LPF Urine Bacteria Few /HPF (0-FEW) Urine Hyaline Casts Few /HPF Urine Mucus Slight /LPF White Blood Count 3.7 x10^3/uL (4.0-11.0) L Red Blood Count 4.18 x10^6/uL (3.50-5.40) Hemoglobin 11.0 g/dL (12.0-15.5) L Hematocrit 33.5 % (36.0-47.0) L Mean Corpuscular Volume 80 fL (79-100) Mean Corpuscular Hemoglobin 26 pg (25-35) Mean Corpuscular Hemoglobin Concent 33 g/dL (31-37) Red Cell Distribution Width 18.0 % (11.5-14.5) H Platelet Count 250 x10^3/uL (140-400) Neutrophils (%) (Auto) 52 % (31-73) Lymphocytes (%) (Auto) 33 % (24-48) Monocytes (%) (Auto) 12 % (0-9) H Eosinophils (%) (Auto) 3 % (0-3) Basophils (%) (Auto) 1 % (0-3) Neutrophils # (Auto) 1.9 x10^3/uL (1.8-7.7) Lymphocytes # (Auto) 1.2 x10^3/uL (1.0-4.8) Monocytes # (Auto) 0.4 x10^3/uL (0.0-1.1) Eosinophils # (Auto) 0.1 x10^3/uL (0.0-0.7) Basophils # (Auto) 0.0 x10^3/uL (0.0-0.2) Sodium Level 145 mmol/L (136-145) Potassium Level 3.8 mmol/L (3.5-5.1) Chloride Level 106 mmol/L (98-107) Carbon Dioxide Level 30 mmol/L (21-32) Anion Gap 9 (6-14) Blood Urea Nitrogen 20 mg/dL (7-20) Creatinine 1.5 mg/dL (0.6-1.0) H Estimated GFR (Cockcroft-Gault) 40.3 BUN/Creatinine Ratio 13 (6-20) Glucose Level 118 mg/dL (70-99) H Calcium Level 8.8 mg/dL (8.5-10.1) Total Bilirubin 0.5 mg/dL (0.2-1.0) Aspartate Amino Transferase (AST) 15 U/L (15-37) Alanine Aminotransferase (ALT) 14 U/L (14-59) Alkaline Phosphatase 76 U/L (46-116) Troponin I Quantitative < 0.017 ng/mL (0.000-0.055) Total Protein 6.7 g/dL (6.4-8.2) Albumin 3.4 g/dL (3.4-5.0) Albumin/Globulin Ratio 1.0 (1.0-1.7) Lipase 50 U/L (73-393) L Laboratory Tests 07/31/19 16:37 Laboratory Tests 07/31/19 17:55 (SHEREEN VELASQUEZ MD) Lab Values Laboratory Tests Test 07/31/19 16:05 07/31/19 16:37 07/31/19 17:55 Urine Collection Type Unknown Urine Color Yellow Urine Clarity Clear Urine pH 7.0 Urine Specific [place] <=1.005 Urine Protein Negative mg/dL (NEG-TRACE) Urine Glucose (UA) Negative mg/dL (NEG) Urine Ketones (Stick) Negative mg/dL (NEG) Urine Blood Negative (NEG) Urine Nitrite Negative (NEG) Urine Bilirubin Negative (NEG) Urine Urobilinogen Dipstick 0.2 mg/dL (0.2 mg/dL) Urine Leukocyte Esterase Negative (NEG) Urine RBC Occ /HPF (0-2) Urine WBC 0 /HPF (0-4) Urine Squamous Epithelial Cells Mod /LPF Urine Bacteria Few /HPF (0-FEW) Urine Hyaline Casts Few /HPF Urine Mucus Slight /LPF White Blood Count 3.7 x10^3/uL (4.0-11.0) L Red Blood Count 4.18 x10^6/uL (3.50-5.40) Hemoglobin 11.0 g/dL (12.0-15.5) L Hematocrit 33.5 % (36.0-47.0) L Mean Corpuscular Volume 80 fL (79-100) Mean Corpuscular Hemoglobin 26 pg (25-35) Mean Corpuscular Hemoglobin Concent 33 g/dL (31-37) Red Cell Distribution Width 18.0 % (11.5-14.5) H Platelet Count 250 x10^3/uL (140-400) Neutrophils (%) (Auto) 52 % (31-73) Lymphocytes (%) (Auto) 33 % (24-48) Monocytes (%) (Auto) 12 % (0-9) H Eosinophils (%) (Auto) 3 % (0-3) Basophils (%) (Auto) 1 % (0-3) Neutrophils # (Auto) 1.9 x10^3/uL (1.8-7.7) Lymphocytes # (Auto) 1.2 x10^3/uL (1.0-4.8) Monocytes # (Auto) 0.4 x10^3/uL (0.0-1.1) Eosinophils # (Auto) 0.1 x10^3/uL (0.0-0.7) Basophils # (Auto) 0.0 x10^3/uL (0.0-0.2) Sodium Level 145 mmol/L (136-145) Potassium Level 3.8 mmol/L (3.5-5.1) Chloride Level 106 mmol/L (98-107) Carbon Dioxide Level 30 mmol/L (21-32) Anion Gap 9 (6-14) Blood Urea Nitrogen 20 mg/dL (7-20) Creatinine 1.5 mg/dL (0.6-1.0) H Estimated GFR (Cockcroft-Gault) 40.3 BUN/Creatinine Ratio 13 (6-20) Glucose Level 118 mg/dL (70-99) H Calcium Level 8.8 mg/dL (8.5-10.1) Total Bilirubin 0.5 mg/dL (0.2-1.0) Aspartate Amino Transferase (AST) 15 U/L (15-37) Alanine Aminotransferase (ALT) 14 U/L (14-59) Alkaline Phosphatase 76 U/L (46-116) Troponin I Quantitative < 0.017 ng/mL (0.000-0.055) Total Protein 6.7 g/dL (6.4-8.2) Albumin 3.4 g/dL (3.4-5.0) Albumin/Globulin Ratio 1.0 (1.0-1.7) Lipase 50 U/L (73-393) L Laboratory Tests 07/31/19 16:37 Laboratory Tests 07/31/19 17:55 (ADRIANE MASSEY APRN) EKG EKG Sinus Rhythm and no STEMI[] Interpretation Time: [address] Velasquez (ADRIANE MASSEY APRN) Radiology/Procedures Radiology/Procedures [] (ADRIANE MASSEY APRN) Impressions: [facility] [address] [place], [place] [id number] IMAGING REPORT Signed PATIENT: MADISON LOFTON ACCOUNT: [id number] : 1935 LOCATION: ER AGE: 83 SEX: F EXAM STATUS: REG ER ORD. PHYSICIAN: ADRIANE MASSEY APRN REASON: abd pain PROCEDURE: CT ABDOMEN PELVIS WO CONTRAST Exam: CT abdomen and pelvis without contrast INDICATION: Abdominal pain TECHNIQUE: Sequential axial images through the abdomen and pelvis obtained without IV contrast. Sagittal and coronal reformatted images were reconstructed from the axial data and reviewed. Comparisons: 02/28/2019 FINDINGS: Heart size is normal. No pericardial effusion. Visualized lung bases are clear. No pleural effusions. Evaluation of the solid organs is limited secondary to noncontrast technique. Liver, spleen, pancreas, gallbladder and adrenals are unremarkable. No perinephric inflammation or hydronephrosis. No renal or ureteral calculi are identified. Bladder is decompressed not well evaluated. Uterus is absent. No abnormal adnexal mass. Scattered diverticulosis is noted within the descending and sigmoid colon. There is mild inflammatory changes at the descending colon. Remainder of the large and small bowel are unremarkable. Appendix is not identified. No free intra-abdominal air or fluid. No obstruction. Abdominal aorta has a normal course and caliber. No enlarged abdominal lymph nodes are identified. Right hip arthroplasty changes are noted. No suspicious osseous lesions or acute fractures. IMPRESSION: Diverticulosis of the descending and sigmoid colon with mild fat stranding noted adjacent to the descending colon could relate to mild diverticulitis. No evidence for perforation or abscess. Exposure: One or more of the following in the visualized dose reduction techniques were utilized for this examination: 1. Automated exposure control 2. Adjustment of the MA and/or KV according to patient size 3. Use of iterative of reconstructive technique Electronically signed by: Flip Betancourt MD (07/31/2019 5:39 PM) [facility] DICTATED and SIGNED BY: FLIP BETANCOURT MD DATE: 07/31/19 1739 (ADRIANE MASSEY APRN) Course & Med Decision Making Course & Med Decision Making Abdomen is soft and tender to the right upper quadrant. There is no shingles but I can tell from scarring where the shingles were on her abdomen. Patient denies nausea, vomiting, diarrhea, constipation, chest pain, shortness of breath, dizziness, headache, fever, weakness, visual changes. She states that she can feel a lump or swelling in that part of her abdomen but I do not feel this during palpation. Lungs are clear to all station all lobes. Alert and oriented. Ambulatory with a steady gait. Skin pink warm and dry. Speaks in full clear sentences. IMPRESSION: Diverticulosis of the descending and sigmoid colon with mild fat stranding noted adjacent to the descending colon could relate to mild diverticulitis. No evidence for perforation or abscess. Because of the findings above I will put the patient on Flagyl and ciprofloxacin. According to exam the patient most likely has post herpatic neuralgia. I will put the patient on lidocaine patches and gabapentin. (ADRIANE MASSEY APRN) Course & Med Decision Making I was not involved in the care of this patient after 1800 on 07/31/2019. (SHEREEN VELASQUEZ MD) Dragon Disclaimer Dragon Disclaimer This electronic medical record was generated, in whole or in part, using a voice recognition dictation system. (ADRIANE MASSEY APRN) Departure Departure Impression: Primary Impression: Abdominal pain Additional Impression: Post herpetic neuralgia Disposition: 01 HOME, SELF-CARE Condition: STABLE Referrals: FUNMILAYO VILLAVICENCIO MD (PCP) Patient Instructions: Diverticulitis, [id number], Postherpetic Neuralgia Additional Instructions: Follow up with primary care provider as soon as possible. Use medications as prescribed. Scripts Tramadol Hcl (TRAMADOL HCL) 50 Mg Tablet 50 MG PO Q6HRS PRN for PAIN, #10 TAB Prov: ADRIANE MASSEY APRN 07/31/19 Lidocaine (Lidocaine PATCH ) 1 Each Adh..patch 1 EACH TP DAILY for FOR LOCAL PAIN for 10 Days, #10 PATCH REMOVE AFTER 12 HOURS Prov: ADRIANE MASSEY APRN 07/31/19 Gabapentin (GABAPENTIN) 600 Mg Tablet 600 MG PO TID for NEUROGENIC PAIN, #30 TAB Prov: ADRIANE MASSEY APRN 07/31/19 Metronidazole (METRONIDAZOLE) 500 Mg Tablet 1 TAB PO BID for 7 Days, #14 TAB 0 Refills Prov: ADRIANE MASSEY APRN 07/31/19 Ciprofloxacin Hcl (CIPRO) 500 Mg Tablet 1 TAB PO BID for 7 Days, #14 TAB 0 Refills Prov: ADRIANE MASSEY APRN 07/31/19 Problem Qualifiers Primary Impression: Abdominal pain Abdominal location: right upper quadrant Qualified Codes: R10.11 - Right upper quadrant pain ADRIANE MASSEY APRN Jul 31, 2019 16:29 SHEREEN VELASQUEZ MD Aug 01, 2019 13:46
[2019-07-31 16:33] LABS: HYALINE CASTS, URINE FEW /HPF; SQUAMOUS EPITHELIAL CELL,UR MOD /LPF
[2019-07-31 16:34] LABS: BACTERIA,URINE FEW /HPF (0-FEW); RBC,URINE OCC /HPF (0-2); WBC,URINE 0 /HPF (0-4)
[2019-07-31 16:44] LABS: BASO % 1 % (0-3); EOS # 0.1 x10^3/uL (0.0-0.7); EOS % 3 % (0-3); HEMATOCRIT 33.5 % (36.0-47.0); LYMPH # 1.2 x10^3/uL (1.0-4.8); LYMPH % 33 % (24-48); MEAN CORPUSCULAR HEMOGLOBIN 26 pg (25-35); MEAN CORPUSCULAR HGB CONC 33 g/dL (31-37); MEAN CORPUSCULAR VOLUME 80 fL (79-100); MONO # 0.4 x10^3/uL (0.0-1.1); MONO % 12 % (0-9); NEUT # 1.9 x10^3/uL (1.8-7.7); NEUT % 52 % (31-73); PLATELET COUNT 250 x10^3/uL (140-400); RED BLOOD COUNT 4.18 x10^6/uL (3.50-5.40); WHITE BLOOD COUNT 3.7 x10^3/uL (4.0-11.0)
[2019-07-31] MEDS: fentaNYL PF VIAL 100 MCG/2 ML VIAL IVP ONE (17:33)
--- NOTE | 2019-07-31 17:42 | RAD ---
Exam: CT abdomen and pelvis without contrast INDICATION: Abdominal pain TECHNIQUE: Sequential axial images through the abdomen and pelvis obtained without IV contrast. Sagittal and coronal reformatted images were reconstructed from the axial data and reviewed. Comparisons: 02/28/2019 FINDINGS: Heart size is normal. No pericardial effusion. Visualized lung bases are clear. No pleural effusions. Evaluation of the solid organs is limited secondary to noncontrast technique. Liver, spleen, pancreas, gallbladder and adrenals are unremarkable. No perinephric inflammation or hydronephrosis. No renal or ureteral calculi are identified. Bladder is decompressed not well evaluated. Uterus is absent. No abnormal adnexal mass. Scattered diverticulosis is noted within the descending and sigmoid colon. There is mild inflammatory changes at the descending colon. Remainder of the large and small bowel are unremarkable. Appendix is not identified. No free intra-abdominal air or fluid. No obstruction. Abdominal aorta has a normal course and caliber. No enlarged abdominal lymph nodes are identified. Right hip arthroplasty changes are noted. No suspicious osseous lesions or acute fractures. IMPRESSION: Diverticulosis of the descending and sigmoid colon with mild fat stranding noted adjacent to the descending colon could relate to mild diverticulitis. No evidence for perforation or abscess. Exposure: One or more of the following in the visualized dose reduction techniques were utilized for this examination: 1. Automated exposure control 2. Adjustment of the MA and/or KV according to patient size 3. Use of iterative of reconstructive technique Electronically signed by: Flip Navarrete MD (07/31/2019 5:39 PM) [facility]
--- NOTE | 2019-07-31 17:55 | EKG ---
[facility] [address] [place] [address] Test Date: 2019-07-31 Test Time: 16:38:18 Pat Name: MADISON LOFTON Department: Room: Gender: F [employer] Work[employer]: : 1935 Requested By: ADRIANE MASSEY Order Number: [id number] Reading MD: Measurements Intervals [place] Rate: 97 P: 41 MN: 144 QRS: -6 QRSD: 66 T: 38 QT: 364 QTc: 467 Interpretive Statements SINUS RHYTHM LEFTWARD AXIS NO SPECIFIC ECG ABNORMALITIES RI6.01 No previous ECG available for comparison
[2019-07-31 18:33] LABS: CALCIUM 8.8 mg/dL (8.5-10.1); CREATININE 1.5 mg/dL (0.6-1.0); GFR 40.3; POTASSIUM 3.8 mmol/L (3.5-5.1)
[2019-07-31 18:39] LABS: ALBUMIN 3.4 g/dL (3.4-5.0); TOTAL BILIRUBIN 0.5 mg/dL (0.2-1.0); TOTAL PROTEIN 6.7 g/dL (6.4-8.2)
[2019-07-31] MEDS ORDERED: LIDO700A21 TP (18:48)
[2019-07-31] MEDS ORDERED: CIPR500T94 PO (18:48)
[2019-07-31] MEDS ORDERED: GABA600T7 PO (18:48)
[2019-07-31] MEDS ORDERED: METR-34 PO (18:48)
[2019-07-31 19:00] VITALS: BP 157/77
[2019-07-31] MEDS ORDERED: TRAM50TA PO (19:04)
== END 2019-07-31 19:19 | disposition home or self-care (01) ==
LOC: ER 15:07
DX: R10.11 Right upper quadrant pain (principal); B02.29 Other postherpetic nervous system involvement; E11.9 Type 2 diabetes mellitus without complications; E78.00 Pure hypercholesterolemia, unspecified; I10 Essential (primary) hypertension; Z90.710 Acquired absence of both cervix and uterus; Z90.49 Acquired absence of other specified parts of digestive tract; Z96.649 Presence of unspecified artificial hip joint; Z88.0 Allergy status to penicillin; Z88.1 Allergy status to other antibiotic agents; Z88.8 Allergy status to other drugs, medicaments and biological substances
CPT/HCPCS: 36415; 74176; 80053; 81001; 83690; 84484; 85025; 93005; 96374; 99285; J3010

== ENCOUNTER → 2019-12-14 | Outpatient (CLI) | payer MEDICARE, BC ==
[~2019-12-14] MED LIST changes: +CIPR500T94 PO; +LIDO700A21 TP; +METR-34 PO; -VALA1000 PO; +VALA10008 PO
[2019-12-14 15:39] LABS: BASO # 0.1 x10^3/uL (0.0-0.2); BASO % 1 % (0-3); EOS # 0.1 x10^3/uL (0.0-0.7); EOS % 2 % (0-3); HEMOGLOBIN 11.4 g/dL (12.0-15.5); LYMPH # 1.2 x10^3/uL (1.0-4.8); LYMPH % 25 % (24-48); MEAN CORPUSCULAR HEMOGLOBIN 26 pg (25-35); MEAN CORPUSCULAR HGB CONC 33 g/dL (31-37); MEAN CORPUSCULAR VOLUME 79 fL (79-100); MONO # 0.4 x10^3/uL (0.0-1.1); MONO % 9 % (0-9); NEUT # 3.1 x10^3/uL (1.8-7.7); NEUT % 64 % (31-73); PLATELET COUNT 253 x10^3/uL (140-400); RED BLOOD COUNT 4.42 x10^6/uL (3.50-5.40); RED CELL DISTRIBUTION WIDTH 19.4 % (11.5-14.5); WHITE BLOOD COUNT 4.9 x10^3/uL (4.0-11.0)
[2019-12-14 15:57] LABS: ALBUMIN 3.1 g/dL (3.4-5.0); CREATININE 1.6 mg/dL (0.6-1.0); GFR 37.3; POTASSIUM 3.9 mmol/L (3.5-5.1)
== END | disposition home or self-care (01) ==
LOC: SURGPAT 14:54
PROVIDERS: ATTEND Surgery
DX: Z01.818 Encounter for other preprocedural examination (principal); Z11.59 Encounter for screening for other viral diseases; L72.3 Sebaceous cyst
CPT/HCPCS: 36415; 80048; 82040; 85025; U0003

== ENCOUNTER 2019-12-18 13:14 | Day surgery (SDC) | payer MEDICARE, BC ==
[~2019-12-18] VITALS: Ht 163.8 cm; Wt 101.5 kg
[~2019-12-18 13:14] MED LIST changes: +BUPIVACAINE-EPI 0.5%-1:200000 MPF 30 ML VIAL. ONE; +CLINDAMYCIN 900MG PREMIX 50 ML IV PRN; +HYDROmorphone 2 MG/ML VIAL IV PRN; +IV RINGERS,LACTATED 1000ML 1,000 ML IV SCH; +LIDOCAINE 1% PF 2 ML VIAL. ID PRN; +LIDOCAINE 2% PF 5 ML VIAL. ONE; +MORPHINE SULFATE 2 MG/ML VIAL. IV PRN; +PROCHLORPERAZINE 10 MG/2 ML VIAL. IV PRN; +PROPOFOL 10 MG/ML (20ML) VIAL. IV ONE; +fentaNYL PF VIAL 100 MCG/2 ML VIAL IV PRN; +fentaNYL PF VIAL 100 MCG/2 ML VIAL ONE
[2019-12-18] MEDS ORDERED: SUCCINYLCHOLINE 200 MG/10 ML VIAL. ONE (14:31)
[2019-12-18] MEDS ORDERED: ALBUTEROL SULFATE 2.5 MG/3 ML NEBU. ONE (14:31)
[2019-12-18] MEDS ORDERED: NEOMY/BACITR/POLYMYXIN OINT PACKET. TP ONE ×3 (15:12→17:45)
[2019-12-18] MEDS ORDERED: PHENYLEPHRINE in 0.9% NACL PF 1 MG/10 ML SYRINGE. IV ONE (15:18)
[2019-12-18] MEDS ORDERED: IPRATRPIUM/ALBUTEROL 0.5/2.5MG 3 ML NEBU. ONE (15:23)
[2019-12-18] MEDS ORDERED: PROPOFOL 10 MG/ML (20ML) VIAL. IV ONE (15:34)
[2019-12-18] MEDS ORDERED: SEVOFLURANE 61 TO 120 MINUTES. IH ONE (15:35)
--- NOTE | 2019-12-18 15:35 | PDOC ---
BRIEF OPERATIVE NOTE Date: Dec 18, 2019 Pre-Op Diagnosis cyst posterior neck Post-Op Diagnosis same Procedure Performed excision Surgeon Dick Anesthesia Type: General Blood Loss 10cc IV Fluid 500cc Specimens Obtained skin and subcutaneous tissue posterior neck 4x2.5x1.5 cm Findings sebaceous cyst Complications difficult intubation KIRK FARAH MD Dec 18, 2019 15:35
[2019-12-18] MEDS ORDERED: INSULIN LISPRO 100 UNIT/ML 3ML VIAL for OP,RR ONLY. SQ PRN (16:30)
[2019-12-18] MEDS ORDERED: HYDR-3164 PO (16:31)
--- NOTE | 2019-12-18 16:34 | DISCH ---
DISCHARGE INSTRUCTIONS Condition on Discharge Condition on Discharge: Stable Activity After Discharge Activity Instructions for Disc: Activity as tolerated Lifting Instructions after Dis: No heavy lifting Exercise Instruction after Dis: Progress as tolerated Driving Instructions after Dis: Do not drive Weight Bearing Status after Di: As tolerated Diet after Discharge Diet after Discharge: Diabetic No Calorie Level Diet Texture: Regular Liquid Texture: Thin Liquid Swallowing Supervision: None needed Wound Incision Care Wound/Incision Care: Ice to area for comfort, No wound care needed Other wound/incision instructi: november shower Wednesday Checks after Discharge Checks after discharge: Check blood press - daily, Check blood sugar, ac/hs Follow-Up Follow up with: Dick 12/28 Treatment/Equipment after DC Adaptive Equipment Issued: None KIRK FARAH MD Dec 18, 2019 16:34
[2019-12-18] MEDS ORDERED: HYDROcodone/APAP 5/325MG 1 TAB TABLET PO ONE (16:45)
[2019-12-18 17:25] VITALS: BP 113/53
--- NOTE | 2019-12-18 19:06 | OP ---
DATE OF SURGERY: 12/18/2019 PREOPERATIVE DIAGNOSIS: Cyst, posterior neck. POSTOPERATIVE DIAGNOSIS: Cyst, posterior neck. PROCEDURE: Excision of same. SURGEON: Kirk Farah MD ANESTHESIA: General endotracheal. ESTIMATED BLOOD LOSS: 10 mL. INTRAVENOUS FLUIDS: 500 mL. SPECIMEN: Skin and subcutaneous tissue, posterior neck, 4 x 2.5 x 1.5 cm. INDICATIONS: The patient is an 84-year-old diabetic with a painful sebaceous cyst in the posterior midline of her neck, brought for excision. DESCRIPTION OF PROCEDURE: The patient brought to the operating suite, given a general endotracheal anesthetic, placed in the right lateral decubitus position and the posterior neck prepped and draped in usual sterile fashion. A 0.5% Marcaine with epinephrine was infiltrated around the process. An elliptical incision was made in the skin. The skin and underlying process were removed en bloc. Culture taken. Wound irrigated and checked for hemostasis when present and a correct sponge count was obtained, the wound was closed with interrupted 4-0 nylon sutures. Sterile dressing applied. The patient was taken out of the lateral decubitus position, awakened from her anesthetic and taken to the recovery room in satisfactory condition. KIRK FARAH MD DR: JELLY/raheem JOB#: [id number] / [id number]
--- NOTE | 2019-12-20 16:06 | PATHOLOGY ---
[facility] Accession Number: [id number] . 01 Material submitted: . neck - POSTERIOR NECK MASS. Modifiers: posterior . 01 Clinical history: . Cyst posterior neck . 02 Diagnosis: Skin and subcutaneous tissue, posterior neck mass excision: - Ruptured epidermal inclusion cyst, showing acute and chronic inflammation, foreign body giant cell reaction, and focal reactive fibrosis. . (JP:mm; 12/20/2019) [facility] 12/20/2019 1350 Local . 02 Comment: There is no evidence of malignancy. . (JP:mm; 12/20/2019) . 02 Electronically signed: . Tobin Anderson MD, Pathologist NPI- [id number] . 01 Gross description: . The specimen is received in formalin, labeled "Barbara Cr, posterior neck mass". Received is an ellipse of barron-brown skin with attached underlying fibroadipose tissue measuring 3.6 x 2.2 x 1.8 cm in greatest dimensions. The surgical margin is inked. Sectioning reveals a possible abscessed cyst measuring 1.2 cm in maximum dimensions. The specimen is submitted representatively in cassettes A1 and A2. ([facility]; 12/19/2019) QA/QA 12/20/2019 1347 Local . 02 Pathologist provided ICD-10: L72.0 . 02 CPT . 334292 Specimen Comment: A courtesy copy of this report has been sent to [phone], [phone] Specimen Comment: [id number] Specimen Comment: Report sent to / DR VILLAVICENCIO Performed at: [address], [place], [place] [id number] MD Adama Grimm MD Phone: [phone] Performed at: [address] [id number] MD Tobin Anderson MD Phone: [phone]
== END 2019-12-18 17:40 | disposition home or self-care (01) ==
LOC: SURG 13:14
PROVIDERS: ATTEND Surgery
DX: R22.1 Localized swelling, mass and lump, neck (principal); L72.0 Epidermal cyst; I10 Essential (primary) hypertension; E78.00 Pure hypercholesterolemia, unspecified; E11.42 Type 2 diabetes mellitus with diabetic polyneuropathy; K44.9 Diaphragmatic hernia without obstruction or gangrene; Z87.891 Personal history of nicotine dependence; Z79.899 Other long term (current) drug therapy; Z87.01 Personal history of pneumonia (recurrent); Z96.641 Presence of right artificial hip joint; Z79.4 Long term (current) use of insulin
CPT/HCPCS: 11424; 82962; 87071; 87075; 88304; A7015; J0330; J1815; J2370; J2704; J3010; J3490; J7613

== ENCOUNTER → 2020-05-10 | Outpatient (CLI) | payer MEDICARE, BC ==
[~2020-05-10] MED LIST changes: -BUPIVACAINE-EPI 0.5%-1:200000 MPF 30 ML VIAL. ONE; -CLINDAMYCIN 900MG PREMIX 50 ML IV PRN; -HYDROmorphone 2 MG/ML VIAL IV PRN; -IV RINGERS,LACTATED 1000ML 1,000 ML IV SCH; -LIDOCAINE 1% PF 2 ML VIAL. ID PRN; -LIDOCAINE 2% PF 5 ML VIAL. ONE; -MORPHINE SULFATE 2 MG/ML VIAL. IV PRN; -PROCHLORPERAZINE 10 MG/2 ML VIAL. IV PRN; -PROPOFOL 10 MG/ML (20ML) VIAL. IV ONE; -fentaNYL PF VIAL 100 MCG/2 ML VIAL IV PRN; -fentaNYL PF VIAL 100 MCG/2 ML VIAL ONE
--- NOTE | 2020-05-12 09:55 | CARD ---
MR#: [id number] Date of Study: 05/10/2020 Ordering Physician: BENJAMIN NEWBY, Referring Physician: BENJAMIN NEWBY, Tech: Sharda Chris APPROVED REPORT EXAM: Two-dimensional and M-mode echocardiogram with Doppler and color Doppler. Other Information Quality : Average INDICATION Congestive Heart Failure RISK FACTORS Diabetes Smoking 2D DIMENSIONS RVDd2.8 (2.9-3.5cm)Left Atrium(2D)2.6 (1.6-4.0cm) IVSd1.1 (0.7-1.1cm)Aortic Root(2D)3.2 (2.0-3.7cm) LVDd5.1 (3.9-5.9cm)LVOT Diameter2.0 (1.8-2.4cm) PWd1.0 (0.7-1.1cm)LVDs2.8 (2.5-4.0cm) FS (%) 45.8 %SV96.7 ml LVEF(%)76.8 (>50%) Aortic Valve AoV Peak Pierce.169.3cm/sAoV VTI33.8cm AO Peak GR.11.5mmHgLVOT Peak Pierce.111.0cm/s AO Mean GR.6mmHgAVA (VMAX)2.05cm2 Mitral Valve MV E Fzqlswgs61.4cm/sMV DECEL QKGK123ly MV A Fkoufjxg74.8cm/sE/A Ratio0.9 Pulmonary Valve PV Peak Cyfouupc82.2cm/s Tricuspid Valve TR P. Frmxazda228ps/sRAP CCRRQDLT6icJt TR Peak Gr.91psQbNHNT79fsQe LEFT VENTRICLE The left ventricle is normal size. There is borderline concentric left ventricular hypertrophy. The l eft ventricular systolic function is normal. The Ejection Fraction is 55%. There is normal LV segment al wall motion. Transmitral Doppler flow pattern is Grade I-abnormal relaxation pattern. RIGHT VENTRICLE The right ventricle is normal size. There is normal right ventricular wall thickness. The right ventr icular systolic function is normal. ATRIA The left atrium is borderline dilated. The right atrium size is normal. The interatrial septum is int act with no evidence for an atrial septal defect or patent foramen ovale as noted on 2-D or Doppler i maging. AORTIC VALVE The aortic valve is calcified but opens well. Doppler and Color Flow revealed trace aortic regurgitat ion. There is no significant aortic valvular stenosis. Calculated aortic valve area is 2.1 cm2 with m aximum pressure gradient of 12 mmHg and mean pressure gradient of 6 mmHg. MITRAL VALVE The mitral valve is normal in structure and function. There is no evidence of mitral valve prolapse. There is no mitral valve stenosis. Doppler and Color-flow revealed trace mitral regurgitation. TRICUSPID VALVE The tricuspid valve is normal in structure and function. Doppler and Color Flow revealed trace tricus pid regurgitation with an estimated PAP of 22 mmHg. There is no tricuspid valve stenosis. PULMONIC VALVE The pulmonic valve is not well visualized. Doppler and Color Flow revealed no pulmonic valvular regur gitation. GREAT VESSELS The aortic root is normal in size. The IVC is normal in size and collapses >50% with inspiration. PERICARDIAL EFFUSION There is no evidence of significant pericardial effusion. Critical Notification Critical Value: No <Conclusion> The left ventricular systolic function is normal. The Ejection Fraction is 55%. There is normal LV segmental wall motion. Transmitral Doppler flow pattern is Grade I-abnormal relaxation pattern. Trace mitral regurgitation. Trace tricuspid regurgitation with an estimated PAP of 22 mmHg. There is no evidence of significant pericardial effusion. Signed by : Benjamin Newby, Electronically Approved : 05/12/2020 09:54:43
== END ==
LOC: ECHO 14:10
PROVIDERS: ATTEND Internal Medicine Cardiovascular Disease
DX: I35.8 Other nonrheumatic aortic valve disorders (principal); I50.33 Acute on chronic diastolic (congestive) heart failure
CPT/HCPCS: 93306

== ENCOUNTER 2020-07-09 15:08 | Inpatient (IN) | payer MEDICARE, BC ==
[~2020-07-09] VITALS: Ht 162.6 cm; Wt 107.5 kg
--- NOTE | 2020-07-09 16:44 | PHYS DOC ---
Past Medical History Past Medical History: Arthritis, CHF, Diabetes-Type II, High Cholesterol, Hypertension, Renal Disease Additional Past Medical Histor: Colon Cancer, Shingles, neuropathy Past Surgical History: Hip Replacement, Hysterectomy, Other Additional Past Surgical Histo: COLECTOMY Smoking Status: Current Every Day Smoker Additional Information: 07/13 ppd Alcohol Use: None Drug Use: None General Adult EDM: Chief Complaint: COUGH HPI: HPI: Patient is a 84 year old female patient who presents with hemotpysis for the past few hours. States she had been coughing up some bright red blood for the past couple hours. States she has never had that before. Reports history of CHF and COPD, has recently changed her diuretic per ethan Newby, from Furosemide to Bumex. Does state she has had some increased swelling in her right leg over the past few days. States no fever. States no malaise. States no chest discomfort. Reports she did notice some blood on kleenex when she blew her nose today, however has not noticed a nosebleed. States she has just been more short of breath the past few days as well, having problems walking up and down stairs at home. Review of Systems: Review of Systems: Constitutional: Denies fever or chills. [] States some malaise Eyes: Denies change in visual acuity. [] HENT: Denies nasal congestion or sore throat. [] Respiratory: Denies cough or shortness of breath. [] States she has been spitting up a large amount of bright red blood with clots starting this afternoon Cardiovascular: Denies chest pain [] States swelling to lower legs, right worse than left, has been changing over the past few weeks. GI: Denies abdominal pain, nausea, vomiting, bloody stools[] States she had diarrhea the past 2 days. Also reports she has felt her abdomen more bloated over the past few days. : Denies dysuria. [] Musculoskeletal: Denies back pain or joint pain. [] Integument: Denies rash. [] Neurologic: Denies headache, focal weakness or sensory changes. [] Endocrine: Denies polyuria or polydipsia. [] Lymphatic: Denies swollen glands. [] Psychiatric: Denies depression or anxiety. [] Heart Score: Risk Factors: Risk Factors: DM, Current or recent (<one month) smoker, HTN, HLP, family history of CAD, obesity. Risk Scores: Score 0 - 3: 2.5% MACE over next 6 weeks - Discharge Home Score 4 - 6: 20.3% MACE over next 6 weeks - Admit for Clinical Observation Score 7 - 10: 72.7% MACE over next 6 weeks - Early Invasive Strategies Allergies: Allergies: Allergies Coded Allergies Type Severity Reaction Last Updated Verified Penicillins Allergy Intermediate rash, dizziness 07/09/20 Yes iodine Allergy Intermediate rash 12/18/19 Yes meperidine Allergy Intermediate 12/18/19 Yes Physical Exam: PE: Constitutional: Well developed, well nourished, no acute distress, non-toxic appearance. [] HENT: Normocephalic, atraumatic, bilateral external ears normal, oropharynx moist, no oral exudates, nose normal. [] Eyes: PERRLA, EOMI, conjunctiva normal, no discharge. [] Neck: Normal range of motion, no tenderness, supple, no stridor. [] Cardiovascular:Heart rate regular rhythm, no murmur [] 2+ pitting edema to lower legs, right worse than left. Lungs & Thorax: Bilateral breath sounds clear to auscultation [] Patient conversing in 5-6 word sentences without air hunger but with some noted dyspnea, SpO2 90-93% room air. Abdomen: Bowel sounds normal, soft, no tenderness, no masses, no pulsatile masses. [] Skin: Warm, dry, no erythema, no rash. [] Back: No tenderness, no CVA tenderness. [] Extremities: No tenderness, no cyanosis, no clubbing, ROM intact, [] Neurologic: Alert and oriented X 3, normal motor function, normal sensory function, no focal deficits noted. [] Psychologic: Affect normal, judgement normal, mood normal. [] Current Patient Data: Vital Signs: Vital Signs Date Time Temp Pulse Resp B/P (MAP) Pulse Ox O2 Delivery O2 Flow Rate FiO2 07/09/20 16:05 98.1 112 28 142/69 (93) 92 Room Air 98.1 EKG: EKG: []Sinus dysrhytmia without ST changes per Dr Miller. no axis deviation. normal intervals. Radiology/Procedures: Radiology/Procedures: : 1935LOCATION: ERAGE: 84 SEX: F EXAM STATUS: REG ER ORD. PHYSICIAN: ENDY MILLER DO REASON: soa PROCEDURE: PORTABLE CHEST 1V Examination: XR CHEST 1V History: soa / Comparison/Correlation: 02/13/2019 two-view chest x-ray exam Findings: Upright frontal view of the chest was obtained. Heart size is within upper limits of normal. No pneumothorax. Patchy infiltrate involves the left lateral midlung region. Left and right lung bases assessment limited due to overlying soft tissues and underpenetrated technique. No definite consolidation suspected. No significant effusion. No pneumothorax. Impression: Infiltrate at the lateral left midlung region. Follow-up to resolution recommended. Electronically signed by: Stephan Maldonado MD (07/09/2020 5:26 PM) [id number] []REASON: abdominal distension PROCEDURE: KUB Examination: XR ABDOMEN 1V History: Reason: abdominal distension / Spl. Instructions: / History: Comparison/Correlation: 07/31/2019 CT abdomen and pelvis without contrast Findings: Frontal view the abdomen was obtained with the patient supine by portable technique. Right hip joint arthroplasty partially seen. Mild gaseous distention of large and small bowel is noted. No suspicious abdominal calcifications. Vascular calcifications are present. Left hip joint space narrowing present. Impression: Mild gaseous distention of bowel. Findings may represent mild ileus. No findings definite for obstruction. Electronically signed by: Stephan Maldonado MD (07/09/2020 5:28 PM) [id number] Course & Med Decision Making: Course & Med Decision Making Pertinent Labs and Imaging studies reviewed. (See chart for details) []Review of abdominal and chest XR, will do CT scan of chest/abd/pel at this time to rule out pulmonary abnormality with infiltrate as well as rule out SBO with diarrhea and abdominal distension with possible ileus noted. Reviewed imaging with plan to CT, patient does not know what her allergy to Iodine is, states she doesnt know what the allergy is and doesnt know what it is. Renal function insufficient, will do oral contrast. Discussed with Dr Flores regarding admission, will plan to admit inpatient. Cristo Disclaimer: Cristo Disclaimer: This electronic medical record was generated, in whole or in part, using a voice recognition dictation system. Departure Departure Impression: Primary Impression: Hemoptysis Additional Impression: Suspected COVID-19 virus infection Disposition: ADMITTED INPT THIS HOSP Admitting Physician: JOCELINE Condition: STABLE Referrals: FUNMILAYO VILLAVICENCIO MD (PCP) JULY PASCUAL APRN Jul 09, 2020 16:44
--- NOTE | 2020-07-09 17:28 | RAD ---
Examination: XR CHEST 1V History: soa / Comparison/Correlation: 02/13/2019 two-view chest x-ray exam Findings: Upright frontal view of the chest was obtained. Heart size is within upper limits of normal . No pneumothorax. Patchy infiltrate involves the left lateral midlung region. Left and right lung ba ses assessment limited due to overlying soft tissues and underpenetrated technique. No definite conso lidation suspected. No significant effusion. No pneumothorax. Impression: Infiltrate at the lateral left midlung region. Follow-up to resolution recommended. Electronically signed by: Stephan Maldonado MD (07/09/2020 5:26 PM) [id number]
[2020-07-09 17:29] LABS: BASO % 1 % (0-3); EOS # 0.1 x10^3/uL (0.0-0.7); EOS % 3 % (0-3); HEMATOCRIT 31.5 % (36.0-47.0); HEMOGLOBIN 9.8 g/dL (12.0-15.5); LYMPH # 1.2 x10^3/uL (1.0-4.8); LYMPH % 24 % (24-48); MEAN CORPUSCULAR HEMOGLOBIN 24 pg (25-35); MEAN CORPUSCULAR HGB CONC 31 g/dL (31-37); MEAN CORPUSCULAR VOLUME 77 fL (79-100); MONO # 0.6 x10^3/uL (0.0-1.1); MONO % 13 % (0-9); NEUT % 60 % (31-73); PLATELET COUNT 200 x10^3/uL (140-400); RED BLOOD COUNT 4.07 x10^6/uL (3.50-5.40); RED CELL DISTRIBUTION WIDTH 18.3 % (11.5-14.5)
--- NOTE | 2020-07-09 17:31 | RAD ---
Examination: XR ABDOMEN 1V History: Reason: abdominal distension / Spl. Instructions: / History: Comparison/Correlation: 07/31/2019 CT abdomen and pelvis without contrast Findings: Frontal view the abdomen was obtained with the patient supine by portable technique. Right hip joint arthroplasty partially seen. Mild gaseous distention of large and small bowel is noted. No suspicious abdominal calcifications. Va scular calcifications are present. Left hip joint space narrowing present. Impression: Mild gaseous distention of bowel. Findings may represent mild ileus. No findings definite for obstruc tion. Electronically signed by: Stephan Maldonado MD (07/09/2020 5:28 PM) [id number]
[2020-07-09 17:36] LABS: CALCIUM 8.8 mg/dL (8.5-10.1); CREATININE 1.5 mg/dL (0.6-1.0); GFR 40.2; POTASSIUM 4.1 mmol/L (3.5-5.1)
[2020-07-09 17:41] LABS: ALBUMIN 3.1 g/dL (3.4-5.0); ALBUMIN/GLOBULIN RATIO 0.8 (1.0-1.7); TOTAL BILIRUBIN 0.3 mg/dL (0.2-1.0)
[2020-07-09 17:48] LABS: INFLUENZA A PATIENT NEGATIVE (NEGATIVE); INFLUENZA B PATIENT NEGATIVE (NEGATIVE)
[2020-07-09 17:57] LABS: PROTHROMBIN TIME PATIENT 12.7 SEC (11.7-14.0)
[2020-07-09] MEDS ORDERED: ONDANSETRON PF 4 MG/2 ML VIAL. IV PRN (18:30)
[2020-07-09] MEDS ORDERED: AZITHRMYCN 500MG IVPB FOR OMNI 250 ML IV ONE (18:30)
[2020-07-09] MEDS ORDERED: MORPHINE SULFATE 2 MG/ML VIAL. IV PRN (18:30)
--- NOTE | 2020-07-09 19:43 | RAD ---
Exam: CT of chest, abdomen and pelvis without contrast INDICATION: Hemoptysis, abdominal distention TECHNIQUE: Sequential axial images through the chest, abdomen and pelvis obtained without IV contrast . Sagittal and coronal reformatted images were reconstructed from the axial data and reviewed. Comparisons: 07/31/2019 FINDINGS: No enlarged heterogenous appearance of the thyroid. No enlarged mediastinal lymph nodes are identifie d. Heart size is normal. No pericardial effusion. Thoracic aorta has a normal course and caliber. Pulmon lucy artery is not enlarged. Airways are patent. There is patchy ground glass opacity in the medial aspect of the right upper lobe . There is a 1.2 cm nodule in the right upper lobe series 2 image 19. Strandy opacities at dependent portion lungs likely representing atelectasis. No pleural effusion or thickening. Evaluation of solid organs limited secondary to noncontrast technique. Liver, spleen, pancreas and adrenals are unremarkable. Gallbladder is decompressed not well evaluated . No perinephric inflammation or hydronephrosis. No renal or ureteral calculi are identified. Bladder is distended and appears thin-walled. Uterus is absent. No abnormal adnexal mass. There is diverticulosis noted at the descending and sigmoid colon without evidence of acute diverticu litis. Appendix is nonidentified. No free intra-abdominal air or fluid. No obstruction. Abdominal aorta has a normal course and caliber. No enlarged intra-abdominal lymph nodes are identified. No suspicious osseous fractures. IMPRESSION: 1. Patchy groundglass opacity at the medial aspect of the right upper lobe favored to be infectious or inflammatory in etiology. 2. No acute process identified within the abdomen or pelvis. Exposure: One or more of the following in the visualized dose reduction techniques were utilized for this examination: 1. Automated exposure control 2. Adjustment of the MA and/or KV according to patient size 3. Use of iterative of reconstructive technique Electronically signed by: Flip Navarrete MD (07/09/2020 7:41 PM) [facility]
--- NOTE | 2020-07-09 20:05 | PDOC1 ---
History and Physical Date of Service: DOS: DATE: 07/09/20 TIME: 19:53 Chief Complaint: Chief Complain: Coughing up bright red blood History of Present Illness: HPI: Patient is a 84-year-old female with past medical history of CHF with EF of 55% and grade 1 diastolic dysfunction on echocardiogram in April 2020, COPD, hypertension, dyslipidemia, remote history of colon cancers with colectomy and status post chemotherapy who presents with hemoptysis today. She endorses bright red blood for the past couple hours. She has never had this episode before. She has recently changed her diuretics from furosemide to Bumex. She does endorse some increased lower extremity edema the past few days. Denies nausea vomiting, fever, chest pain, generalized weakness, abdominal pain, bloody stools or diarrhea. She is not on any blood thinners. Recently started in May for cilostazol. Past Medical/Surgical History: PMH/PSH: Cardiovascular: CHF, HTN, Hyperlipidemia, Pulmonary hypertension Pulmonary: No pertinent hx CENTRAL NERVOUS SYSTEM: Periperal neuropathy GI: Other Heme/Onc: Cancer Hepatobiliary: No pertinent hx Infectious disease: No pertinent hx Renal/: Chronic renal insuff Endocrine: Diabetes Past Surgical History Past Surgical History: Total hip replacement, Colon Resection for colon cancer status post chemotherapy for 9 months 20 years ago Allergies: Allergies: Coded Allergies: Penicillins (Verified Allergy, Intermediate, rash, dizziness, 07/09/20) iodine (Verified Allergy, Intermediate, rash, 12/18/19) topical iodine meperidine (Verified Allergy, Intermediate, 12/18/19) HAS PREVIOUSLY TOLERATED FENTANYL Family History: Family History: Reviewed with no relevant findings Social History: Social History: Smoke: No ALCOHOL: none Drugs: None Current Medications: Current Medications Current Medications Ondansetron HCl (Zofran) 4 mg PRN Q8HRS PRN IV NAUSEA/VOMITING; Start 07/09/20 at 18:30; Stop 07/10/20 at 18:29 Morphine Sulfate (Morphine Sulfate) 2 mg PRN Q2HR PRN IV PAIN; Start 07/09/20 at 18:30; Stop 07/10/20 at 18:29 Azithromycin 250 ml @ 250 mls/hr 1X ONCE IV Last administered on 07/09/20at 19:30; Start 07/09/20 at 18:30; Stop 07/09/20 at 19:29; Status DC Active Scripts Active Accokeek 5-325 Tablet (Acetaminophen/Hydrocodone Bitart) 1 Each Tablet 1 Tab PO PRN Q6HRS PRN 7 Days Lidocaine PATCH (Lidocaine) 1 Each Adh..patch 1 Each TP DAILY 10 Days REMOVE AFTER 12 HOURS Gabapentin 600 Mg Tablet 600 Mg PO TID [place]ek 5-325 Tablet (Acetaminophen/Hydrocodone Bitart) 1 Each Tablet 1 Tab PO PRN Q6HRS PRN No driving or drinking alcohol while taking this medication [Pantoprazole] 40 MG Tablet.dr 40 Mg PO DAILYAC Furosemide 40 Mg Tablet 40 Mg PO DAILY08 PRN 30 Days Losartan Potassium (Losartan Potassium) 25 Mg Tablet 25 Mg PO DAILY 30 Days Reported Gabapentin (Gabapentin) 300 Mg Capsule 300 Mg PO DAILY Zolpidem Tartrate 5 Mg Tablet 5 Mg PO PRN QHS PRN Pravastatin Sodium 40 Mg Tablet 1 Tab PO QHS Novolog Flexpen (Insulin Aspart) 100 Unit/1 Ml Insuln.pen 20 Unit SQ with meals if BG > 150 Cilostazol 100 Mg Tablet 1 Tab PO BID Lantus Solostar (Insulin Glargine,Hum.rec.anlog) 100 Unit/1 Ml Insuln.pen 60 Unit SQ QHS ROS: Review of Systems Review of System REVIEW OF SYSTEMS: GENERAL: Denies weakness SKIN: No bruising, hair changes or rashes. EYES: No blurred, double or loss of vision. NOSE AND THROAT: No history of nosebleeds, hoarseness or sore throat. HEART: No history of palpitations, chest pain or shortness of breath on exertion. LUNGS: Denies cough, hemoptysis, wheezing or shortness of breath. GASTROINTESTINAL: Denies changes in appetite, nausea, vomiting, diarrhea or constipation. GENITOURINARY: No history of frequency, urgency, hesitancy or nocturia. NEUROLOGIC: Denies history of numbness, tingling, or tremor. PSYCHIATRIC: No history of panic, anxiety or depression. ENDOCRINE: No history of heat or cold intolerance, polyuria or polydipsia. EXTREMITIES: Denies joint pain, pain on walking or stiffness. Physical Exam: Vital Signs: Vital Signs Date Time Temp Pulse Resp B/P (MAP) Pulse Ox O2 Delivery O2 Flow Rate FiO2 07/09/20 18:35 96 20 162/81 (108) 99 Room Air 2.0 07/09/20 16:05 98.1 98.1 Physcial Exam: GEN: No apparent distress. Alert and oriented HEENT: Normal cephalic, atraumatic, external auditory canals are patent EYES: Extraocular muscles are intact, pupil are equally round and reactive to light and accommodation MUSCULOSKELETAL: Well developed , well nourished, good range of motion ENDOCRINE: No thyromegaly was palpated LYMPHATICS: No cervical chain or axillary nodes were noted HEMATOPOIETIC: No bruising NECK: Supple, no JVD, no thyromegaly was noted LUNGS: Clear to auscultation in all lung sarmiento without rhonchi or wheezing HEART: RRR, S!, S2 present. Peripheral pulses intact, no obvious murmurs noted ABDOMEN: Soft, nontender. Positive bowel sounds, no organomegaly, normal bowel sounds EXTREMITIES: Without clubbing, cyanosis, or edema. Pedal pulses intact. Negative Homans sign NEUROLOGIC: Normal speech and tone. A&O x 3, moves all extremities, no obvious focal deficits PSYCHIATRIC: Normal affect, normal mood. Stable SKIN: No ulcerations or rashes, good skin turgor, no jaundice VASCULAR: Good capillary refill, neurovascular bundle appears to be intact Labs: Labs: Laboratory Tests Test 07/09/20 16:49 07/09/20 17:20 White Blood Count 5.0 x10^3/uL (4.0-11.0) Red Blood Count 4.07 x10^6/uL (3.50-5.40) Hemoglobin 9.8 g/dL (12.0-15.5) Hematocrit 31.5 % (36.0-47.0) Mean Corpuscular Volume 77 fL (79-100) Mean Corpuscular Hemoglobin 24 pg (25-35) Mean Corpuscular Hemoglobin Concent 31 g/dL (31-37) Red Cell Distribution Width 18.3 % (11.5-14.5) Platelet Count 200 x10^3/uL (140-400) Neutrophils (%) (Auto) 60 % (31-73) Lymphocytes (%) (Auto) 24 % (24-48) Monocytes (%) (Auto) 13 % (0-9) Eosinophils (%) (Auto) 3 % (0-3) Basophils (%) (Auto) 1 % (0-3) Neutrophils # (Auto) 3.0 x10^3/uL (1.8-7.7) Lymphocytes # (Auto) 1.2 x10^3/uL (1.0-4.8) Monocytes # (Auto) 0.6 x10^3/uL (0.0-1.1) Eosinophils # (Auto) 0.1 x10^3/uL (0.0-0.7) Basophils # (Auto) 0.0 x10^3/uL (0.0-0.2) Prothrombin Time 12.7 SEC (11.7-14.0) Prothromb Time International Ratio 1.0 (0.8-1.1) Sodium Level 142 mmol/L (136-145) Potassium Level 4.1 mmol/L (3.5-5.1) Chloride Level 105 mmol/L (98-107) Carbon Dioxide Level 26 mmol/L (21-32) Anion Gap 11 (6-14) Blood Urea Nitrogen 23 mg/dL (7-20) Creatinine 1.5 mg/dL (0.6-1.0) Estimated GFR (Cockcroft-Gault) 40.2 BUN/Creatinine Ratio 15 (6-20) Glucose Level 164 mg/dL (70-99) Calcium Level 8.8 mg/dL (8.5-10.1) Total Bilirubin 0.3 mg/dL (0.2-1.0) Aspartate Amino Transf (AST/SGOT) 11 U/L (15-37) Alanine Aminotransferase (ALT/SGPT) 11 U/L (14-59) Alkaline Phosphatase 88 U/L (46-116) Creatine Kinase 63 U/L (26-192) Troponin I Quantitative < 0.017 ng/mL (0.000-0.055) ZS-Ram-S-Type Natriuretic Peptide 574 pg/mL (0-449) Total Protein 7.0 g/dL (6.4-8.2) Albumin 3.1 g/dL (3.4-5.0) Albumin/Globulin Ratio 0.8 (1.0-1.7) Influenza Type A Antigen Negative (NEGATIVE) Influenza Type B Antigen Negative (NEGATIVE) Laboratory Tests Test 07/09/20 16:49 07/09/20 17:20 White Blood Count 5.0 x10^3/uL (4.0-11.0) Red Blood Count 4.07 x10^6/uL (3.50-5.40) Hemoglobin 9.8 g/dL (12.0-15.5) Hematocrit 31.5 % (36.0-47.0) Mean Corpuscular Volume 77 fL (79-100) Mean Corpuscular Hemoglobin 24 pg (25-35) Mean Corpuscular Hemoglobin Concent 31 g/dL (31-37) Red Cell Distribution Width 18.3 % (11.5-14.5) Platelet Count 200 x10^3/uL (140-400) Neutrophils (%) (Auto) 60 % (31-73) Lymphocytes (%) (Auto) 24 % (24-48) Monocytes (%) (Auto) 13 % (0-9) Eosinophils (%) (Auto) 3 % (0-3) Basophils (%) (Auto) 1 % (0-3) Neutrophils # (Auto) 3.0 x10^3/uL (1.8-7.7) Lymphocytes # (Auto) 1.2 x10^3/uL (1.0-4.8) Monocytes # (Auto) 0.6 x10^3/uL (0.0-1.1) Eosinophils # (Auto) 0.1 x10^3/uL (0.0-0.7) Basophils # (Auto) 0.0 x10^3/uL (0.0-0.2) Prothrombin Time 12.7 SEC (11.7-14.0) Prothromb Time International Ratio 1.0 (0.8-1.1) Sodium Level 142 mmol/L (136-145) Potassium Level 4.1 mmol/L (3.5-5.1) Chloride Level 105 mmol/L (98-107) Carbon Dioxide Level 26 mmol/L (21-32) Anion Gap 11 (6-14) Blood Urea Nitrogen 23 mg/dL (7-20) Creatinine 1.5 mg/dL (0.6-1.0) Estimated GFR (Cockcroft-Gault) 40.2 BUN/Creatinine Ratio 15 (6-20) Glucose Level 164 mg/dL (70-99) Calcium Level 8.8 mg/dL (8.5-10.1) Total Bilirubin 0.3 mg/dL (0.2-1.0) Aspartate Amino Transf (AST/SGOT) 11 U/L (15-37) Alanine Aminotransferase (ALT/SGPT) 11 U/L (14-59) Alkaline Phosphatase 88 U/L (46-116) Creatine Kinase 63 U/L (26-192) Troponin I Quantitative < 0.017 ng/mL (0.000-0.055) NK-Nji-I-Type Natriuretic Peptide 574 pg/mL (0-449) Total Protein 7.0 g/dL (6.4-8.2) Albumin 3.1 g/dL (3.4-5.0) Albumin/Globulin Ratio 0.8 (1.0-1.7) Influenza Type A Antigen Negative (NEGATIVE) Influenza Type B Antigen Negative (NEGATIVE) Images: Images CT CHEST/ABD/PELVIS IMPRESSION: 1. Patchy groundglass opacity at the medial aspect of the right upper lobe favored to be infectious or inflammatory in etiology. 2. No acute process identified within the abdomen or pelvis. Assessment/Plan Assessment/Plan Hemoptysis concern for CAP JANNA due to vasomotor nephropathy Investigation for COVID-19 infection Microcytic anemia concern for iron deficiency Admit to medicine for further management Pending Covid test PCR Continue empiric IV antibiotics Pulmonology consult for pulmonary nodule and hemoptysis evaluation Hold anticoagulation, SCD for DVT prophylaxis Protonix GI prophylaxis ADA diet Full code Discussed with RN and SW Disposition pending pulmonology consult Surrogate decision maker is Yon Cr Justifications for Admission Other Justification GERARDO VILLASNEOR MD Jul 09, 2020 20:05
[2020-07-09] MEDS ORDERED: ONDANSETRON PF 4 MG/2 ML VIAL. IVP PRN (20:15)
[2020-07-09] MEDS ORDERED: DEXTROSE 50% 25 GM / 50ML DISP.SYRIN. IV PRN (20:15)
[2020-07-09] MEDS ORDERED: AZITHROMYCIN 500 MG in IV NORMAL SALINE 250ML 250 ML IV SCH (20:15)
[2020-07-09] MEDS ORDERED: ACETAMINOPHEN 325 MG TABLET. PO PRN (20:15)
[2020-07-09] MEDS ORDERED: DOCUSATE SODIUM 100 MG CAPSULE. PO PRN (20:15)
[2020-07-09] MEDS ORDERED: SENNOSIDES 8.6 MG TABLET PO PRN (20:15)
--- NOTE | 2020-07-09 21:59 | EKG ---
[facility] [address] [place] [address] Test Date: 2020-07-09 Test Time: 16:36:50 Pat Name: MADISON LOFTON Department: Room: [facility] Gender: F Fringe Knotter: : 1935 Requested By: ENDY MILLER Order Number: [id number] Reading MD: Mir Newby Measurements Intervals Caldwell Rate: 105 P: 90 MD: 138 QRS: -2 QRSD: 66 T: 47 QT: 318 QTc: 424 Interpretive Statements SINUS TACHYCARDIA ATRIAL PREMATURE COMPLEX(ES) LEFTWARD AXIS Electronically Signed On 07-16-2020 14:59:57 INVENTORY CONTROL SPECIALIST by Mir Newby
[2020-07-09 23:00] VITALS: BP 142/71
[2020-07-10 03:00] VITALS: BP 107/74
[2020-07-10 07:00] VITALS: BP 165/74
[2020-07-10] MEDS: PANTOPRAZOLE 40 MG TABLET.DR. PO SCH (08:05)
[2020-07-10 11:00] VITALS: BP 138/68
[2020-07-10 11:22] LABS: BASO % 1 % (0-3); EOS # 0.1 x10^3/uL (0.0-0.7); EOS % 3 % (0-3); HEMATOCRIT 30.1 % (36.0-47.0); HEMOGLOBIN 9.5 g/dL (12.0-15.5); LYMPH # 0.9 x10^3/uL (1.0-4.8); LYMPH % 23 % (24-48); MEAN CORPUSCULAR HEMOGLOBIN 24 pg (25-35); MEAN CORPUSCULAR HGB CONC 31 g/dL (31-37); MEAN CORPUSCULAR VOLUME 78 fL (79-100); MONO # 0.5 x10^3/uL (0.0-1.1); MONO % 12 % (0-9); NEUT # 2.5 x10^3/uL (1.8-7.7); NEUT % 61 % (31-73); PLATELET COUNT 179 x10^3/uL (140-400); RED BLOOD COUNT 3.88 x10^6/uL (3.50-5.40); RED CELL DISTRIBUTION WIDTH 18.6 % (11.5-14.5); WHITE BLOOD COUNT 4.1 x10^3/uL (4.0-11.0)
[2020-07-10 11:41] LABS: ALBUMIN 2.8 g/dL (3.4-5.0); ALBUMIN/GLOBULIN RATIO 0.8 (1.0-1.7); CALCIUM 8.4 mg/dL (8.5-10.1); CREATININE 1.4 mg/dL (0.6-1.0); GFR 43.6; POTASSIUM 4.4 mmol/L (3.5-5.1); TOTAL BILIRUBIN 0.3 mg/dL (0.2-1.0); TOTAL PROTEIN 6.4 g/dL (6.4-8.2)
[2020-07-10 11:45] LABS: MAGNESIUM 1.8 mg/dL (1.8-2.4)
[2020-07-10] MEDS: NICOTINE 14MG PATCH. TD PRN (12:08)
--- NOTE | 2020-07-10 13:06 | PDOC ---
[employer] PROGRESS NOTE Date of Service DOS: DATE: 07/10/20 TIME: 13:04 Chief Complaint Chief Complaint Hemoptysis concern for CAP JANNA due to vasomotor nephropathy Investigation for COVID-19 infection Microcytic anemia concern for iron deficiency Admit to medicine for further management Pending Covid test PCR Continue empiric IV antibiotics Pulmonology consult for pulmonary nodule and hemoptysis evaluation Hold anticoagulation, SCD for DVT prophylaxis Protonix GI prophylaxis ADA diet Full code Discussed with RN and SW Disposition pending pulmonology consult Surrogate decision maker is Yon Cr History of Present Illness History of Present Illness 07/10/2020 No acute events overnight. Patient is saturating 97% on 1 L nasal cannula. Denies any more hemoptysis and shortness of breath. Plan for bronchoscopy tomorrow in the morning. Patient's chart, labs, images were reviewed and discussed with RN 84-year-old female with past medical history of CHF with EF of 55% and grade 1 diastolic dysfunction on echocardiogram in April 2020, COPD, hypertension, dyslipidemia, remote history of colon cancers with colectomy and status post chemotherapy who presents with hemoptysis today. She endorses bright red blood for the past couple hours. She has never had this episode before. She has recently changed her diuretics from furosemide to Bumex. She does endorse some increased lower extremity edema the past few days. Denies nausea vomiting, fever, chest pain, generalized weakness, abdominal pain, bloody stools or diarrhea. She is not on any blood thinners. Recently started in May for cilostazol. Vitals/I&O Vitals/I&O: Vital Signs Date Time Temp Pulse Resp B/P (MAP) Pulse Ox O2 Delivery O2 Flow Rate FiO2 07/10/20 11:00 97.9 81 18 138/68 (91) 94 Room Air 97.9 07/10/20 08:00 2.0 I & O 07/09/20 07/09/20 07/10/20 15:00 23:00 07:00 Intake Total 420 ml Balance 420 ml Physical Exam Lungs: Other Labs Labs: Laboratory Tests Test 07/09/20 16:49 07/09/20 17:20 07/09/20 20:29 07/09/20 21:33 White Blood Count 5.0 x10^3/uL (4.0-11.0) Red Blood Count 4.07 x10^6/uL (3.50-5.40) Hemoglobin 9.8 g/dL (12.0-15.5) Hematocrit 31.5 % (36.0-47.0) Mean Corpuscular Volume 77 fL (79-100) Mean Corpuscular Hemoglobin 24 pg (25-35) Mean Corpuscular Hemoglobin Concent 31 g/dL (31-37) Red Cell Distribution Width 18.3 % (11.5-14.5) Platelet Count 200 x10^3/uL (140-400) Neutrophils (%) (Auto) 60 % (31-73) Lymphocytes (%) (Auto) 24 % (24-48) Monocytes (%) (Auto) 13 % (0-9) Eosinophils (%) (Auto) 3 % (0-3) Basophils (%) (Auto) 1 % (0-3) Neutrophils # (Auto) 3.0 x10^3/uL (1.8-7.7) Lymphocytes # (Auto) 1.2 x10^3/uL (1.0-4.8) Monocytes # (Auto) 0.6 x10^3/uL (0.0-1.1) Eosinophils # (Auto) 0.1 x10^3/uL (0.0-0.7) Basophils # (Auto) 0.0 x10^3/uL (0.0-0.2) Prothrombin Time 12.7 SEC (11.7-14.0) Prothromb Time International Ratio 1.0 (0.8-1.1) Sodium Level 142 mmol/L (136-145) Potassium Level 4.1 mmol/L (3.5-5.1) Chloride Level 105 mmol/L (98-107) Carbon Dioxide Level 26 mmol/L (21-32) Anion Gap 11 (6-14) Blood Urea Nitrogen 23 mg/dL (7-20) Creatinine 1.5 mg/dL (0.6-1.0) Estimated GFR (Cockcroft-Gault) 40.2 BUN/Creatinine Ratio 15 (6-20) Glucose Level 164 mg/dL (70-99) Calcium Level 8.8 mg/dL (8.5-10.1) Ferritin 15 ng/mL (8-252) Total Bilirubin 0.3 mg/dL (0.2-1.0) Aspartate Amino Transf (AST/SGOT) 11 U/L (15-37) Alanine Aminotransferase (ALT/SGPT) 11 U/L (14-59) Alkaline Phosphatase 88 U/L (46-116) Creatine Kinase 63 U/L (26-192) Troponin I Quantitative < 0.017 ng/mL (0.000-0.055) < 0.017 ng/mL (0.000-0.055) VA-Pef-T-Type Natriuretic Peptide 574 pg/mL (0-449) Total Protein 7.0 g/dL (6.4-8.2) Albumin 3.1 g/dL (3.4-5.0) Albumin/Globulin Ratio 0.8 (1.0-1.7) Influenza Type A Antigen Negative (NEGATIVE) Influenza Type B Antigen Negative (NEGATIVE) Glucose (Fingerstick) 98 mg/dL (70-99) Test 07/10/20 01:18 07/10/20 08:09 07/10/20 11:04 07/10/20 11:39 Troponin I Quantitative < 0.017 ng/mL (0.000-0.055) Glucose (Fingerstick) 64 mg/dL (70-99) 192 mg/dL (70-99) White Blood Count 4.1 x10^3/uL (4.0-11.0) Red Blood Count 3.88 x10^6/uL (3.50-5.40) Hemoglobin 9.5 g/dL (12.0-15.5) Hematocrit 30.1 % (36.0-47.0) Mean Corpuscular Volume 78 fL (79-100) Mean Corpuscular Hemoglobin 24 pg (25-35) Mean Corpuscular Hemoglobin Concent 31 g/dL (31-37) Red Cell Distribution Width 18.6 % (11.5-14.5) Platelet Count 179 x10^3/uL (140-400) Neutrophils (%) (Auto) 61 % (31-73) Lymphocytes (%) (Auto) 23 % (24-48) Monocytes (%) (Auto) 12 % (0-9) Eosinophils (%) (Auto) 3 % (0-3) Basophils (%) (Auto) 1 % (0-3) Neutrophils # (Auto) 2.5 x10^3/uL (1.8-7.7) Lymphocytes # (Auto) 0.9 x10^3/uL (1.0-4.8) Monocytes # (Auto) 0.5 x10^3/uL (0.0-1.1) Eosinophils # (Auto) 0.1 x10^3/uL (0.0-0.7) Basophils # (Auto) 0.0 x10^3/uL (0.0-0.2) Sodium Level 139 mmol/L (136-145) Potassium Level 4.4 mmol/L (3.5-5.1) Chloride Level 104 mmol/L (98-107) Carbon Dioxide Level 29 mmol/L (21-32) Anion Gap 6 (6-14) Blood Urea Nitrogen 22 mg/dL (7-20) Creatinine 1.4 mg/dL (0.6-1.0) Estimated GFR (Cockcroft-Gault) 43.6 BUN/Creatinine Ratio 16 (6-20) Glucose Level 129 mg/dL (70-99) Calcium Level 8.4 mg/dL (8.5-10.1) Phosphorus Level 4.0 mg/dL (2.6-4.7) Magnesium Level 1.8 mg/dL (1.8-2.4) Total Bilirubin 0.3 mg/dL (0.2-1.0) Aspartate Amino Transf (AST/SGOT) 14 U/L (15-37) Alanine Aminotransferase (ALT/SGPT) 17 U/L (14-59) Alkaline Phosphatase 80 U/L (46-116) Total Protein 6.4 g/dL (6.4-8.2) Albumin 2.8 g/dL (3.4-5.0) Albumin/Globulin Ratio 0.8 (1.0-1.7) Assessment and Plan Assessmemt and Plan Problems Medical Problems: (1) Hemoptysis Status: Acute (2) Suspected COVID-19 virus infection Status: Acute Comment Review of Relevant I have reviewed the following items dayami (where applicable) has been applied. Medications: Current Medications Medications (Trade) Dose Ordered Sig/Ervin Route PRN Reason Start Time Stop Time Status Last Admin Dose Admin Morphine Sulfate (Morphine Sulfate) 2 mg PRN Q2HR PRN IV PAIN 07/09/20 18:30 07/10/20 18:29 07/10/20 01:38 Azithromycin 250 ml @ 250 mls/hr 1X ONCE IV 07/09/20 18:30 07/09/20 19:29 DC 07/09/20 19:30 Pantoprazole Sodium (Protonix) 40 mg DAILYAC PO 07/10/20 07:30 07/10/20 08:05 Levofloxacin/ Dextrose 100 ml @ 100 mls/hr 1X ONCE IV 07/09/20 21:00 07/09/20 21:59 DC 07/09/20 22:56 Nicotine (Nicoderm Cq 14mg) 1 patch PRN DAILY PRN TD SMOKING CESSATION 07/10/20 11:30 07/10/20 12:08 Justifications for Admission Other Justification PNEUMONIA AND HEMOPTYSIS GERARDO VILLASENOR MD Jul 10, 2020 13:06
--- NOTE | 2020-07-10 14:24 | PDOC ---
PULMONARY PROGRESS NOTES DATE: 07/10/20 TIME: 14:23 Vitals Vital Signs Date Time Temp Pulse Resp B/P (MAP) Pulse Ox O2 Delivery O2 Flow Rate FiO2 07/10/20 11:00 97.9 81 18 138/68 (91) 94 Room Air 97.9 07/10/20 08:00 2.0 Lungs: Other Labs Laboratory Tests Test 07/09/20 16:49 07/09/20 17:20 07/09/20 20:29 07/09/20 21:33 White Blood Count 5.0 x10^3/uL (4.0-11.0) Red Blood Count 4.07 x10^6/uL (3.50-5.40) Hemoglobin 9.8 g/dL (12.0-15.5) Hematocrit 31.5 % (36.0-47.0) Mean Corpuscular Volume 77 fL (79-100) Mean Corpuscular Hemoglobin 24 pg (25-35) Mean Corpuscular Hemoglobin Concent 31 g/dL (31-37) Red Cell Distribution Width 18.3 % (11.5-14.5) Platelet Count 200 x10^3/uL (140-400) Neutrophils (%) (Auto) 60 % (31-73) Lymphocytes (%) (Auto) 24 % (24-48) Monocytes (%) (Auto) 13 % (0-9) Eosinophils (%) (Auto) 3 % (0-3) Basophils (%) (Auto) 1 % (0-3) Neutrophils # (Auto) 3.0 x10^3/uL (1.8-7.7) Lymphocytes # (Auto) 1.2 x10^3/uL (1.0-4.8) Monocytes # (Auto) 0.6 x10^3/uL (0.0-1.1) Eosinophils # (Auto) 0.1 x10^3/uL (0.0-0.7) Basophils # (Auto) 0.0 x10^3/uL (0.0-0.2) Prothrombin Time 12.7 SEC (11.7-14.0) Prothromb Time International Ratio 1.0 (0.8-1.1) Sodium Level 142 mmol/L (136-145) Potassium Level 4.1 mmol/L (3.5-5.1) Chloride Level 105 mmol/L (98-107) Carbon Dioxide Level 26 mmol/L (21-32) Anion Gap 11 (6-14) Blood Urea Nitrogen 23 mg/dL (7-20) Creatinine 1.5 mg/dL (0.6-1.0) Estimated GFR (Cockcroft-Gault) 40.2 BUN/Creatinine Ratio 15 (6-20) Glucose Level 164 mg/dL (70-99) Calcium Level 8.8 mg/dL (8.5-10.1) Ferritin 15 ng/mL (8-252) Total Bilirubin 0.3 mg/dL (0.2-1.0) Aspartate Amino Transf (AST/SGOT) 11 U/L (15-37) Alanine Aminotransferase (ALT/SGPT) 11 U/L (14-59) Alkaline Phosphatase 88 U/L (46-116) Creatine Kinase 63 U/L (26-192) Troponin I Quantitative < 0.017 ng/mL (0.000-0.055) < 0.017 ng/mL (0.000-0.055) KD-Sgw-Y-Type Natriuretic Peptide 574 pg/mL (0-449) Total Protein 7.0 g/dL (6.4-8.2) Albumin 3.1 g/dL (3.4-5.0) Albumin/Globulin Ratio 0.8 (1.0-1.7) Influenza Type A Antigen Negative (NEGATIVE) Influenza Type B Antigen Negative (NEGATIVE) Glucose (Fingerstick) 98 mg/dL (70-99) Test 07/10/20 01:18 07/10/20 08:09 07/10/20 11:04 07/10/20 11:39 Troponin I Quantitative < 0.017 ng/mL (0.000-0.055) Glucose (Fingerstick) 64 mg/dL (70-99) 192 mg/dL (70-99) White Blood Count 4.1 x10^3/uL (4.0-11.0) Red Blood Count 3.88 x10^6/uL (3.50-5.40) Hemoglobin 9.5 g/dL (12.0-15.5) Hematocrit 30.1 % (36.0-47.0) Mean Corpuscular Volume 78 fL (79-100) Mean Corpuscular Hemoglobin 24 pg (25-35) Mean Corpuscular Hemoglobin Concent 31 g/dL (31-37) Red Cell Distribution Width 18.6 % (11.5-14.5) Platelet Count 179 x10^3/uL (140-400) Neutrophils (%) (Auto) 61 % (31-73) Lymphocytes (%) (Auto) 23 % (24-48) Monocytes (%) (Auto) 12 % (0-9) Eosinophils (%) (Auto) 3 % (0-3) Basophils (%) (Auto) 1 % (0-3) Neutrophils # (Auto) 2.5 x10^3/uL (1.8-7.7) Lymphocytes # (Auto) 0.9 x10^3/uL (1.0-4.8) Monocytes # (Auto) 0.5 x10^3/uL (0.0-1.1) Eosinophils # (Auto) 0.1 x10^3/uL (0.0-0.7) Basophils # (Auto) 0.0 x10^3/uL (0.0-0.2) Sodium Level 139 mmol/L (136-145) Potassium Level 4.4 mmol/L (3.5-5.1) Chloride Level 104 mmol/L (98-107) Carbon Dioxide Level 29 mmol/L (21-32) Anion Gap 6 (6-14) Blood Urea Nitrogen 22 mg/dL (7-20) Creatinine 1.4 mg/dL (0.6-1.0) Estimated GFR (Cockcroft-Gault) 43.6 BUN/Creatinine Ratio 16 (6-20) Glucose Level 129 mg/dL (70-99) Calcium Level 8.4 mg/dL (8.5-10.1) Phosphorus Level 4.0 mg/dL (2.6-4.7) Magnesium Level 1.8 mg/dL (1.8-2.4) Total Bilirubin 0.3 mg/dL (0.2-1.0) Aspartate Amino Transf (AST/SGOT) 14 U/L (15-37) Alanine Aminotransferase (ALT/SGPT) 17 U/L (14-59) Alkaline Phosphatase 80 U/L (46-116) Total Protein 6.4 g/dL (6.4-8.2) Albumin 2.8 g/dL (3.4-5.0) Albumin/Globulin Ratio 0.8 (1.0-1.7) Laboratory Tests Test 07/09/20 16:49 07/09/20 17:20 07/09/20 20:29 07/09/20 21:33 White Blood Count 5.0 x10^3/uL (4.0-11.0) Red Blood Count 4.07 x10^6/uL (3.50-5.40) Hemoglobin 9.8 g/dL (12.0-15.5) Hematocrit 31.5 % (36.0-47.0) Mean Corpuscular Volume 77 fL (79-100) Mean Corpuscular Hemoglobin 24 pg (25-35) Mean Corpuscular Hemoglobin Concent 31 g/dL (31-37) Red Cell Distribution Width 18.3 % (11.5-14.5) Platelet Count 200 x10^3/uL (140-400) Neutrophils (%) (Auto) 60 % (31-73) Lymphocytes (%) (Auto) 24 % (24-48) Monocytes (%) (Auto) 13 % (0-9) Eosinophils (%) (Auto) 3 % (0-3) Basophils (%) (Auto) 1 % (0-3) Neutrophils # (Auto) 3.0 x10^3/uL (1.8-7.7) Lymphocytes # (Auto) 1.2 x10^3/uL (1.0-4.8) Monocytes # (Auto) 0.6 x10^3/uL (0.0-1.1) Eosinophils # (Auto) 0.1 x10^3/uL (0.0-0.7) Basophils # (Auto) 0.0 x10^3/uL (0.0-0.2) Prothrombin Time 12.7 SEC (11.7-14.0) Prothromb Time International Ratio 1.0 (0.8-1.1) Sodium Level 142 mmol/L (136-145) Potassium Level 4.1 mmol/L (3.5-5.1) Chloride Level 105 mmol/L (98-107) Carbon Dioxide Level 26 mmol/L (21-32) Anion Gap 11 (6-14) Blood Urea Nitrogen 23 mg/dL (7-20) Creatinine 1.5 mg/dL (0.6-1.0) Estimated GFR (Cockcroft-Gault) 40.2 BUN/Creatinine Ratio 15 (6-20) Glucose Level 164 mg/dL (70-99) Calcium Level 8.8 mg/dL (8.5-10.1) Ferritin 15 ng/mL (8-252) Total Bilirubin 0.3 mg/dL (0.2-1.0) Aspartate Amino Transf (AST/SGOT) 11 U/L (15-37) Alanine Aminotransferase (ALT/SGPT) 11 U/L (14-59) Alkaline Phosphatase 88 U/L (46-116) Creatine Kinase 63 U/L (26-192) Troponin I Quantitative < 0.017 ng/mL (0.000-0.055) < 0.017 ng/mL (0.000-0.055) JL-Eka-P-Type Natriuretic Peptide 574 pg/mL (0-449) Total Protein 7.0 g/dL (6.4-8.2) Albumin 3.1 g/dL (3.4-5.0) Albumin/Globulin Ratio 0.8 (1.0-1.7) Influenza Type A Antigen Negative (NEGATIVE) Influenza Type B Antigen Negative (NEGATIVE) Glucose (Fingerstick) 98 mg/dL (70-99) Test 07/10/20 01:18 07/10/20 08:09 07/10/20 11:04 07/10/20 11:39 Troponin I Quantitative < 0.017 ng/mL (0.000-0.055) Glucose (Fingerstick) 64 mg/dL (70-99) 192 mg/dL (70-99) White Blood Count 4.1 x10^3/uL (4.0-11.0) Red Blood Count 3.88 x10^6/uL (3.50-5.40) Hemoglobin 9.5 g/dL (12.0-15.5) Hematocrit 30.1 % (36.0-47.0) Mean Corpuscular Volume 78 fL (79-100) Mean Corpuscular Hemoglobin 24 pg (25-35) Mean Corpuscular Hemoglobin Concent 31 g/dL (31-37) Red Cell Distribution Width 18.6 % (11.5-14.5) Platelet Count 179 x10^3/uL (140-400) Neutrophils (%) (Auto) 61 % (31-73) Lymphocytes (%) (Auto) 23 % (24-48) Monocytes (%) (Auto) 12 % (0-9) Eosinophils (%) (Auto) 3 % (0-3) Basophils (%) (Auto) 1 % (0-3) Neutrophils # (Auto) 2.5 x10^3/uL (1.8-7.7) Lymphocytes # (Auto) 0.9 x10^3/uL (1.0-4.8) Monocytes # (Auto) 0.5 x10^3/uL (0.0-1.1) Eosinophils # (Auto) 0.1 x10^3/uL (0.0-0.7) Basophils # (Auto) 0.0 x10^3/uL (0.0-0.2) Sodium Level 139 mmol/L (136-145) Potassium Level 4.4 mmol/L (3.5-5.1) Chloride Level 104 mmol/L (98-107) Carbon Dioxide Level 29 mmol/L (21-32) Anion Gap 6 (6-14) Blood Urea Nitrogen 22 mg/dL (7-20) Creatinine 1.4 mg/dL (0.6-1.0) Estimated GFR (Cockcroft-Gault) 43.6 BUN/Creatinine Ratio 16 (6-20) Glucose Level 129 mg/dL (70-99) Calcium Level 8.4 mg/dL (8.5-10.1) Phosphorus Level 4.0 mg/dL (2.6-4.7) Magnesium Level 1.8 mg/dL (1.8-2.4) Total Bilirubin 0.3 mg/dL (0.2-1.0) Aspartate Amino Transf (AST/SGOT) 14 U/L (15-37) Alanine Aminotransferase (ALT/SGPT) 17 U/L (14-59) Alkaline Phosphatase 80 U/L (46-116) Total Protein 6.4 g/dL (6.4-8.2) Albumin 2.8 g/dL (3.4-5.0) Albumin/Globulin Ratio 0.8 (1.0-1.7) Medications Active Scripts Medications Dose Route/Sig Max Daily Dose Days Date Category Dose Instructions [place] 5-325 Tablet (Acetaminophen/Hydrocodone Bitart) 1 Each Tablet 1 Tab PO PRN Q6HRS PRN 7 12/18/19 Rx Lidocaine PATCH (Lidocaine) 1 Each Adh..patch 1 Each TP DAILY 10 07/31/19 Rx REMOVE AFTER 12 HOURS Gabapentin 600 Mg Tablet 600 Mg PO TID 07/31/19 Rx [place] 5-325 Tablet (Acetaminophen/Hydrocodone Bitart) 1 Each Tablet 1 Tab PO PRN Q6HRS PRN 02/13/19 Rx No driving or drinking alcohol while taking this medication [Pantoprazole] 40 MG Tablet.dr 40 Mg PO DAILYAC 11/22/18 Rx Furosemide 40 Mg Tablet 40 Mg PO DAILY08 PRN 30 11/22/18 Rx Losartan Potassium (Losartan Potassium) 25 Mg Tablet 25 Mg PO DAILY 30 11/21/18 Rx Gabapentin (Gabapentin) 300 Mg Capsule 300 Mg PO DAILY 11/20/18 Reported Zolpidem Tartrate 5 Mg Tablet 5 Mg PO PRN QHS PRN 11/20/18 Reported Pravastatin Sodium 40 Mg Tablet 1 Tab PO QHS 04/06/16 Reported Novolog Flexpen (Insulin Aspart) 100 Unit/1 Ml Insuln.pen 20 Unit SQ 10/17/14 Reported with meals if BG > 150 Cilostazol 100 Mg Tablet 1 Tab PO BID 10/17/14 Reported Lantus Solostar (Insulin Glargine,Hum.rec.anlog) 100 Unit/1 Ml Insuln.pen 60 Unit SQ QHS 10/17/14 Reported Impression . Hemoptysis, suspect secondary to acute bronchitis, pneumonia, We will proceed with diagnostic bronchoscopy in the a.m., patient wishes to go home tomorrow afternoon after her bronchoscopy. Follow-up in my office next week, once discharged. MAGEN KEMP MD Jul 10, 2020 14:24
[2020-07-10 15:00] VITALS: BP 156/71
--- NOTE | 2020-07-10 15:03 | CONS ---
DATE OF CONSULTATION: 07/10/2020 ATTENDING PHYSICIAN: Artem Flores MD REASON FOR CONSULTATION: The patient is seen in pulmonary consultation at the request of Dr. Flores for hemoptysis. HISTORY OF PRESENT ILLNESS: The patient is an 84-year-old that is on no anticoagulation, smokes and continues to do so, normally does not wear oxygen at home. She has underlying COPD, presented with increasing shortness of breath, hemoptysis for the last 2-3 days, approximately 3-4 tablespoons. I was asked to see her in consultation. The patient had a chest x-ray, which revealed several findings including an infiltrate at the left lateral mid lung field. She subsequently had a CT chest. I reviewed the CT revealing patchy ground glass opacities in the medial aspect of the right upper lobe. There is also pleural fat on the left side and a nodule in the right upper lobe. The patient denies fever or chills. No COVID-19 exposures. PAST MEDICAL HISTORY: Chronic heart failure, hypertension, hyperlipidemia, secondary pulmonary hypertension, peripheral neuropathy, history of colon cancer, status post chemo approximately 20 years ago, chronic renal insufficiency, diabetes. PAST SURGICAL HISTORY: No recent major surgeries. ALLERGIES: PENICILLIN, IODINE, AND MEPERIDINE. REVIEW OF SYSTEMS: CONSTITUTIONAL: No fever or chills. EYES: No change in visual acuity. HENT: No nasal congestion or sore throat. PULMONARY: As indicated above. CARDIOVASCULAR: No chest pain. No pressure. GASTROINTESTINAL: No nausea, vomiting, diarrhea. GENITOURINARY: No dysuria or frequency. MUSCULOSKELETAL: No localized muscle aches or joint pains. SKIN: No new skin rashes. NEUROLOGIC: No headaches, diplopia or blurred vision. PHYSICAL EXAMINATION: GENERAL: The patient did not appear to be in any respiratory distress, appeared to be younger than stated age, currently on 2 liters of oxygen supplementation. HEENT: Eyes, the sclerae were nonicteric. NECK: Jugular venous distention was not elevated. No lymphadenopathy. CHEST: Full expansion. LUNGS: Coarse breath sounds. Scattered wheezes. CARDIOVASCULAR: Regular rate and rhythm with S1, S2, no S3. ABDOMEN: Soft, nontender, nondistended. EXTREMITIES: No clubbing, cyanosis or edema. NEUROLOGICAL: The patient was awake, alert, following commands. A detailed neuro exam was not performed. LABORATORY DATA: INR was 1.0. White count was normal. She has mild leukopenia. Influenza is negative. PCR for COVID-19 is pending. Electrolytes were noted. BUN was 22, creatinine was 1.4. Glucose was noted. Troponin was not elevated. RADIOLOGICAL DATA: CT as indicated above. IMPRESSION: 1. Hemoptysis, suspect secondary to pneumonia, acute bronchitis, difficult to rule out clinical endobronchial lesion. 2. Abnormal CT chest revealing several findings including a right upper lobe nodule, ground glass opacities and pleural fat on the left side. 3. Acute exacerbation of chronic obstructive pulmonary disease. 4. Negative influenza screen. 5. History of colon cancer, status post resection and chemotherapy. 6. Secondary pulmonary hypertension. 7. Systemic hypertension. 8. Chronic renal insufficiency. 9. Diabetes. 10. Right upper lobe pulmonary nodule, repeat CT chest. PLAN: 1. Continue antibiotics for gram-negative and gram-positive organisms. 2. We will proceed with diagnostic bronchoscopy. Risks, benefits, and alternatives reviewed with the patient. She consented. 3. Rapid SARS-CoV-2 prior to bronchoscopy. 4. Continue home meds. 5. Monitor blood sugars. 6. Repeat CT chest in 2 months. I do appreciate the privilege in sharing in the patient's care. MAGEN KEMP MD DR: ADILSON/raheem JOB#: [id number] / [id number]
--- NOTE | 2020-07-10 15:15 | NUR ---
SW following for discharge planning. Spoke with RN and reviewed chart. Pt from home. Pt on room air, IV pain medication, COVID pending. Pt up ad-kelvin. Discharge plan is home, self-care. SW following.
[2020-07-10 20:09] VITALS: BP 143/65
[2020-07-10] MEDS: LACTOBACILLUS RHAMNOSUS GG 1 CAPSULE. PO SCH (21:16)
[2020-07-10] MEDS: ZOLPIDEM 5 MG TABLET. PO PRN (22:08)
[2020-07-10 23:26] VITALS: BP 150/69
[2020-07-11] VITALS (9 sets, daily range): BP systolic 136–160; BP diastolic 69–85
[2020-07-11] MEDS ORDERED: DEXTROSE 50% 25 GM / 50ML DISP.SYRIN. IV PRN (05:30)
[2020-07-11] MEDS ORDERED: ALBUTEROL SULFATE 2.5 MG/3 ML NEBU. NEB PRN (07:30)
[2020-07-11] MEDS: PANTOPRAZOLE 40 MG TABLET.DR. PO SCH (07:30)
[2020-07-11] MEDS ORDERED: EPINEPHrine 1 MG/ML VIAL INJ PRN (07:30)
[2020-07-11] MEDS ORDERED: LIDOCAINE 4% TOPICAL 50 ML SOLUTION. MM PRN (07:30)
[2020-07-11] MEDS ORDERED: LIDOCAINE 1% Multi-Dose 20 ML VIAL. INJ PRN (07:30)
[2020-07-11] MEDS ORDERED: LIDOCAINE 2% VISCOUS 100 ML BOTTLE. MM PRN (07:30)
[2020-07-11] MEDS ORDERED: LIDOCAINE 2% VISCOUS 100 ML BOTTLE. ONE (07:40)
[2020-07-11] MEDS ORDERED: LIDOCAINE 4% TOPICAL 50 ML SOLUTION. ONE (07:40)
[2020-07-11] MEDS ORDERED: LIDOCAINE 1% Multi-Dose 20 ML VIAL. ONE (07:40)
[2020-07-11] MEDS ORDERED: EPINEPHrine 1 MG/ML VIAL ONE (07:40)
[2020-07-11] MEDS: INSULIN LISPRO 300 UNITS/3 ML VIAL. SQ SCH ×3 (08:00→17:00)
[2020-07-11] MEDS ORDERED: PROPOFOL 10 MG/ML (20ML) VIAL. IV ONE (08:34)
[2020-07-11] MEDS ORDERED: IV RINGERS,LACTATED 1000ML 1,000 ML IV ONE (08:45)
--- NOTE | 2020-07-11 10:25 | PDOC4 ---
PROCEDURE Procedure Bronchoscopy Date of procedure 07/11/2020 Bronchoscopy assist; Magen Kemp MD Indications; patient presents with hemoptysis currently smoke, risk benefits and then reviewed with patient she consent. Sedation please see anesthesia's notes Description; Timeout was performed prior to initiating the procedure. Vital signs and O2 saturation were maintained within normal limits throughout the procedure. Patient did have a short period of desaturation during the procedure. She recovered nicely with bag valve assistance. Bronchoscope was passed through the left nares. Upon visualizing the posterior pharynx there was an abnormality on the epiglottic area. There was a growth, fungating in nature. There was minimal bleeding with trauma from the scope itself. The vocal cords were anesthetized with 5 cc of 4% lidocaine. Bronchoscope was passed through the vocal cords. I was able to visualize the right and left mainstem bronchus there was no endobronchial lesion. At this time patient saturations decreased, I immediately removed the bronchoscope monitor patient. She required minimal assistance with bag valve facemask.. Her saturations elfego to 90%. Findings 1. 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 2. Normal-appearing true vocal cords, able to pass bronchoscope through the vocal cords without any significant resistance. 3. No endobronchial lesion seen within the right and left mainstem bronchus, as result to patient desaturating I did not complete the exam, I did not visualize the subsegments. Plan Possible transfer to for ENT services. MAGEN KEMP MD Jul 11, 2020 10:25
--- NOTE | 2020-07-11 10:27 | PDOC ---
PULMONARY PROGRESS NOTES DATE: 07/11/20 TIME: 10:26 Subjective Patient feels better, continue hemoptysis no chest pain no pressure Vitals Vital Signs Date Time Temp Pulse Resp B/P (MAP) Pulse Ox O2 Delivery O2 Flow Rate FiO2 07/11/20 09:38 98 20 176/78 90 Nasal Cannula 3 07/11/20 09:22 97.6 97.6 ROS: No Nausea, No Chest Pain, No Abdominal Pain, No Increase Cough Lungs: Crackles Cardiovascular: S1, S2 Abdomen: Soft Neuro Exam: Alert Extremities: No Edema Skin: Warm Labs Laboratory Tests Test 07/09/20 16:49 07/09/20 17:20 07/09/20 20:29 07/09/20 21:33 White Blood Count 5.0 x10^3/uL (4.0-11.0) Red Blood Count 4.07 x10^6/uL (3.50-5.40) Hemoglobin 9.8 g/dL (12.0-15.5) Hematocrit 31.5 % (36.0-47.0) Mean Corpuscular Volume 77 fL (79-100) Mean Corpuscular Hemoglobin 24 pg (25-35) Mean Corpuscular Hemoglobin Concent 31 g/dL (31-37) Red Cell Distribution Width 18.3 % (11.5-14.5) Platelet Count 200 x10^3/uL (140-400) Neutrophils (%) (Auto) 60 % (31-73) Lymphocytes (%) (Auto) 24 % (24-48) Monocytes (%) (Auto) 13 % (0-9) Eosinophils (%) (Auto) 3 % (0-3) Basophils (%) (Auto) 1 % (0-3) Neutrophils # (Auto) 3.0 x10^3/uL (1.8-7.7) Lymphocytes # (Auto) 1.2 x10^3/uL (1.0-4.8) Monocytes # (Auto) 0.6 x10^3/uL (0.0-1.1) Eosinophils # (Auto) 0.1 x10^3/uL (0.0-0.7) Basophils # (Auto) 0.0 x10^3/uL (0.0-0.2) Prothrombin Time 12.7 SEC (11.7-14.0) Prothromb Time International Ratio 1.0 (0.8-1.1) Sodium Level 142 mmol/L (136-145) Potassium Level 4.1 mmol/L (3.5-5.1) Chloride Level 105 mmol/L (98-107) Carbon Dioxide Level 26 mmol/L (21-32) Anion Gap 11 (6-14) Blood Urea Nitrogen 23 mg/dL (7-20) Creatinine 1.5 mg/dL (0.6-1.0) Estimated GFR (Cockcroft-Gault) 40.2 BUN/Creatinine Ratio 15 (6-20) Glucose Level 164 mg/dL (70-99) Calcium Level 8.8 mg/dL (8.5-10.1) Ferritin 15 ng/mL (8-252) Total Bilirubin 0.3 mg/dL (0.2-1.0) Aspartate Amino Transf (AST/SGOT) 11 U/L (15-37) Alanine Aminotransferase (ALT/SGPT) 11 U/L (14-59) Alkaline Phosphatase 88 U/L (46-116) Creatine Kinase 63 U/L (26-192) Troponin I Quantitative < 0.017 ng/mL (0.000-0.055) < 0.017 ng/mL (0.000-0.055) MH-Ltz-R-Type Natriuretic Peptide 574 pg/mL (0-449) Total Protein 7.0 g/dL (6.4-8.2) Albumin 3.1 g/dL (3.4-5.0) Albumin/Globulin Ratio 0.8 (1.0-1.7) Coronavirus (PCR) Not detected (Not Detected) Influenza Type A Antigen Negative (NEGATIVE) Influenza Type B Antigen Negative (NEGATIVE) Glucose (Fingerstick) 98 mg/dL (70-99) Test 07/10/20 01:18 07/10/20 08:09 07/10/20 11:04 07/10/20 11:39 Troponin I Quantitative < 0.017 ng/mL (0.000-0.055) Glucose (Fingerstick) 64 mg/dL (70-99) 192 mg/dL (70-99) White Blood Count 4.1 x10^3/uL (4.0-11.0) Red Blood Count 3.88 x10^6/uL (3.50-5.40) Hemoglobin 9.5 g/dL (12.0-15.5) Hematocrit 30.1 % (36.0-47.0) Mean Corpuscular Volume 78 fL (79-100) Mean Corpuscular Hemoglobin 24 pg (25-35) Mean Corpuscular Hemoglobin Concent 31 g/dL (31-37) Red Cell Distribution Width 18.6 % (11.5-14.5) Platelet Count 179 x10^3/uL (140-400) Neutrophils (%) (Auto) 61 % (31-73) Lymphocytes (%) (Auto) 23 % (24-48) Monocytes (%) (Auto) 12 % (0-9) Eosinophils (%) (Auto) 3 % (0-3) Basophils (%) (Auto) 1 % (0-3) Neutrophils # (Auto) 2.5 x10^3/uL (1.8-7.7) Lymphocytes # (Auto) 0.9 x10^3/uL (1.0-4.8) Monocytes # (Auto) 0.5 x10^3/uL (0.0-1.1) Eosinophils # (Auto) 0.1 x10^3/uL (0.0-0.7) Basophils # (Auto) 0.0 x10^3/uL (0.0-0.2) Sodium Level 139 mmol/L (136-145) Potassium Level 4.4 mmol/L (3.5-5.1) Chloride Level 104 mmol/L (98-107) Carbon Dioxide Level 29 mmol/L (21-32) Anion Gap 6 (6-14) Blood Urea Nitrogen 22 mg/dL (7-20) Creatinine 1.4 mg/dL (0.6-1.0) Estimated GFR (Cockcroft-Gault) 43.6 BUN/Creatinine Ratio 16 (6-20) Glucose Level 129 mg/dL (70-99) Calcium Level 8.4 mg/dL (8.5-10.1) Phosphorus Level 4.0 mg/dL (2.6-4.7) Magnesium Level 1.8 mg/dL (1.8-2.4) Total Bilirubin 0.3 mg/dL (0.2-1.0) Aspartate Amino Transf (AST/SGOT) 14 U/L (15-37) Alanine Aminotransferase (ALT/SGPT) 17 U/L (14-59) Alkaline Phosphatase 80 U/L (46-116) Total Protein 6.4 g/dL (6.4-8.2) Albumin 2.8 g/dL (3.4-5.0) Albumin/Globulin Ratio 0.8 (1.0-1.7) Test 07/10/20 16:56 07/10/20 21:33 07/11/20 08:47 Glucose (Fingerstick) 155 mg/dL (70-99) 221 mg/dL (70-99) 128 mg/dL (70-99) Laboratory Tests Test 07/10/20 11:04 07/10/20 11:39 07/10/20 16:56 07/10/20 21:33 White Blood Count 4.1 x10^3/uL (4.0-11.0) Red Blood Count 3.88 x10^6/uL (3.50-5.40) Hemoglobin 9.5 g/dL (12.0-15.5) Hematocrit 30.1 % (36.0-47.0) Mean Corpuscular Volume 78 fL (79-100) Mean Corpuscular Hemoglobin 24 pg (25-35) Mean Corpuscular Hemoglobin Concent 31 g/dL (31-37) Red Cell Distribution Width 18.6 % (11.5-14.5) Platelet Count 179 x10^3/uL (140-400) Neutrophils (%) (Auto) 61 % (31-73) Lymphocytes (%) (Auto) 23 % (24-48) Monocytes (%) (Auto) 12 % (0-9) Eosinophils (%) (Auto) 3 % (0-3) Basophils (%) (Auto) 1 % (0-3) Neutrophils # (Auto) 2.5 x10^3/uL (1.8-7.7) Lymphocytes # (Auto) 0.9 x10^3/uL (1.0-4.8) Monocytes # (Auto) 0.5 x10^3/uL (0.0-1.1) Eosinophils # (Auto) 0.1 x10^3/uL (0.0-0.7) Basophils # (Auto) 0.0 x10^3/uL (0.0-0.2) Sodium Level 139 mmol/L (136-145) Potassium Level 4.4 mmol/L (3.5-5.1) Chloride Level 104 mmol/L (98-107) Carbon Dioxide Level 29 mmol/L (21-32) Anion Gap 6 (6-14) Blood Urea Nitrogen 22 mg/dL (7-20) Creatinine 1.4 mg/dL (0.6-1.0) Estimated GFR (Cockcroft-Gault) 43.6 BUN/Creatinine Ratio 16 (6-20) Glucose Level 129 mg/dL (70-99) Calcium Level 8.4 mg/dL (8.5-10.1) Phosphorus Level 4.0 mg/dL (2.6-4.7) Magnesium Level 1.8 mg/dL (1.8-2.4) Total Bilirubin 0.3 mg/dL (0.2-1.0) Aspartate Amino Transf (AST/SGOT) 14 U/L (15-37) Alanine Aminotransferase (ALT/SGPT) 17 U/L (14-59) Alkaline Phosphatase 80 U/L (46-116) Total Protein 6.4 g/dL (6.4-8.2) Albumin 2.8 g/dL (3.4-5.0) Albumin/Globulin Ratio 0.8 (1.0-1.7) Glucose (Fingerstick) 192 mg/dL (70-99) 155 mg/dL (70-99) 221 mg/dL (70-99) Test 07/11/20 08:47 Glucose (Fingerstick) 128 mg/dL (70-99) Medications Active Scripts Medications Dose Route/Sig Max Daily Dose Days Date Category Dose Instructions [place] 5-325 Tablet (Acetaminophen/Hydrocodone Bitart) 1 Each Tablet 1 Tab PO PRN Q6HRS PRN 7 12/18/19 Rx Lidocaine PATCH (Lidocaine) 1 Each Adh..patch 1 Each TP DAILY 10 07/31/19 Rx REMOVE AFTER 12 HOURS Gabapentin 600 Mg Tablet 600 Mg PO TID 07/31/19 Rx [place] 5-325 Tablet (Acetaminophen/Hydrocodone Bitart) 1 Each Tablet 1 Tab PO PRN Q6HRS PRN 02/13/19 Rx No driving or drinking alcohol while taking this medication [Pantoprazole] 40 MG Tablet.dr 40 Mg PO DAILYAC 11/22/18 Rx Furosemide 40 Mg Tablet 40 Mg PO DAILY08 PRN 30 11/22/18 Rx Losartan Potassium (Losartan Potassium) 25 Mg Tablet 25 Mg PO DAILY 30 11/21/18 Rx Gabapentin (Gabapentin) 300 Mg Capsule 300 Mg PO DAILY 11/20/18 Reported Zolpidem Tartrate 5 Mg Tablet 5 Mg PO PRN QHS PRN 11/20/18 Reported Pravastatin Sodium 40 Mg Tablet 1 Tab PO QHS 04/06/16 Reported Novolog Flexpen (Insulin Aspart) 100 Unit/1 Ml Insuln.pen 20 Unit SQ 10/17/14 Reported with meals if BG > 150 Cilostazol 100 Mg Tablet 1 Tab PO BID 10/17/14 Reported Lantus Solostar (Insulin Glargine,Hum.rec.anlog) 100 Unit/1 Ml Insuln.pen 60 Unit SQ QHS 10/17/14 Reported Impression . IMPRESSION: 1. Hemoptysis, suspect secondary to pneumonia, acute bronchitis, difficult to rule out clinical endobronchial lesion. 2. Abnormal CT chest revealing several findings including a right upper lobe nodule, ground glass opacities and pleural fat on the left side. 3. Acute exacerbation of chronic obstructive pulmonary disease. 4. Negative influenza screen. 5. History of colon cancer, status post resection and chemotherapy. 6. Secondary pulmonary hypertension. 7. Systemic hypertension. 8. Chronic renal insufficiency. 9. Diabetes. 10. Right upper lobe pulmonary nodule, repeat CT chest. Plan . We will proceed with diagnostic bronchoscopy today, risk benefits and alternatives reviewed with patient she consented Continue empiric antibiotics SARS-CoV-2 negative Continue home meds Repeat CT chest in 2 months MAGEN KEMP MD Jul 11, 2020 10:27
--- NOTE | 2020-07-11 11:31 | NUR ---
SW following for discharge planning. Spoke with RN and reviewed chart. Pt now on 2l . Spoke with Dr. Lizarraga who is requesting a hospital to hospital transfer as pt needs an ENT specialist. Pt requesting transfer to . SW phoned and faxed referral to [facility] transfer team. SW awaiting an answer on acceptance. ELENI following. Addendum: 07/11/20 at 1237 by NOE PATEL SW Pt accepted by Dr. Núñez at [facility] per Dr. Hall. No beds at this time. Met with pt and pt's spouse. Pt agreeable to hospital to hospital transfer once a bed is available. Hospital transfer form signed by patient and on pt's chart with packet of clinicals. Pt added to weekend/holiday discharge list. RN updated.
[2020-07-11] MEDS: GABAPENTIN 300 MG CAPSULE. PO SCH (12:49)
[2020-07-11] MEDS: LACTOBACILLUS RHAMNOSUS GG 1 CAPSULE. PO SCH ×2 (12:49→20:35)
[2020-07-11] MEDS: LOSARTAN POTASSIUM 25 MG TABLET. PO SCH (12:51)
--- NOTE | 2020-07-11 15:26 | PDOC ---
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 Patient will need to have to be transferred for ENT evaluation. Likely she will need surgery on Wednesday. Patient's chart, labs, images were reviewed and discussed with RN 07/10/2020 No acute events overnight. Patient is saturating 97% on 1 L nasal cannula. Denies any more hemoptysis and shortness of breath. Plan for bronchoscopy tomorrow in the morning. Patient's chart, labs, images were reviewed and discussed with RN 84-year-old female with past medical history of CHF with EF of 55% and grade 1 diastolic dysfunction on echocardiogram in April 2020, COPD, hypertension, dyslipidemia, remote history of colon cancers with colectomy and status post chemotherapy who presents with hemoptysis today. She endorses bright red blood for the past couple hours. She has never had this episode before. She has recently changed her diuretics from furosemide to Bumex. She does endorse some increased lower extremity edema the past few days. Denies nausea vomiting, fever, chest pain, generalized weakness, abdominal pain, bloody stools or diarrhea. She is not on any blood thinners. Recently started in May for cilostazol. Vitals/I&O Vitals/I&O: Vital Signs Date Time Temp Pulse Resp B/P (MAP) Pulse Ox O2 Delivery O2 Flow Rate FiO2 07/11/20 13:00 97 140/70 (93) 97 Nasal Cannula 1.0 07/11/20 11:00 98.7 16 98.7 I & O 07/10/20 07/10/20 07/11/20 15:00 23:00 07:00 Intake Total 500 ml 200 ml Output Total 100 ml 100 ml 402 ml Balance 400 ml 100 ml -402 ml Physical Exam Lungs: Crackles Labs Labs: Laboratory Tests Test 07/10/20 16:56 07/10/20 21:33 07/11/20 08:47 07/11/20 11:56 Glucose (Fingerstick) 155 mg/dL (70-99) 221 mg/dL (70-99) 128 mg/dL (70-99) 148 mg/dL (70-99) Assessment and Plan Assessmemt and Plan Problems Medical Problems: (1) Hemoptysis Status: Acute (2) Suspected COVID-19 virus infection Status: Acute Comment Review of Relevant I have reviewed the following items dayami (where applicable) has been applied. Medications: Current Medications Medications (Trade) Dose Ordered Sig/Ervin Route PRN Reason Start Time Stop Time Status Last Admin Dose Admin Levofloxacin/ Dextrose 50 ml @ 50 mls/hr Q24H IV 07/10/20 21:00 07/10/20 21:16 Lactobacillus Rhamnosus (Culturelle) 1 cap BID PO 07/10/20 21:00 07/11/20 12:49 Gabapentin (Neurontin) 300 mg DAILY PO 07/11/20 09:00 07/11/20 12:49 Losartan Potassium (Cozaar) 25 mg DAILY PO 07/11/20 09:00 07/11/20 12:51 Zolpidem Tartrate (Ambien) 5 mg PRN QHS PRN PO INSOMNIA 07/10/20 21:30 07/10/20 22:08 Ringer's Solution 1,000 ml @ 75 mls/hr 1X ONCE IV 07/11/20 08:45 07/11/20 22:04 07/11/20 08:45 Justifications for Admission Other Justification PNEUMONIA AND HEMOPTYSIS GERARDO VILLASEONR MD Jul 11, 2020 15:26
[2020-07-12] MEDS: HYDROcodone/APAP 5/325MG 1 TAB TABLET PO PRN ×2 (01:47→12:48)
[2020-07-12 03:00] VITALS: BP 145/70
[2020-07-12 07:00] VITALS: BP 151/33
[2020-07-12] MEDS: PANTOPRAZOLE 40 MG TABLET.DR. PO SCH (07:38)
[2020-07-12] MEDS: LOSARTAN POTASSIUM 25 MG TABLET. PO SCH (09:01)
[2020-07-12] MEDS: LACTOBACILLUS RHAMNOSUS GG 1 CAPSULE. PO SCH ×2 (09:01→21:06)
[2020-07-12] MEDS: GABAPENTIN 300 MG CAPSULE. PO SCH (09:01)
[2020-07-12] MEDS: INSULIN LISPRO 300 UNITS/3 ML VIAL. SQ SCH ×3 (09:04→17:00)
--- NOTE | 2020-07-12 10:08 | PDOC ---
PULMONARY PROGRESS NOTES DATE: 07/12/20 TIME: 10:06 Subjective Patient with no further hemoptysis, wishes to go home, I reassured her that she will be transferred to [facility] between and Wednesday Vitals Vital Signs Date Time Temp Pulse Resp B/P (MAP) Pulse Ox O2 Delivery O2 Flow Rate FiO2 07/12/20 09:01 87 151/33 07/12/20 07:00 97.8 19 97 Nasal Cannula 1.0 97.8 ROS: No Nausea, No Chest Pain, No Abdominal Pain, No Increase Cough Lungs: Crackles Cardiovascular: S1, S2 Abdomen: Soft Neuro Exam: Alert Extremities: No Edema Skin: Warm Labs Laboratory Tests Test 07/10/20 11:04 07/10/20 11:39 07/10/20 16:56 07/10/20 21:33 White Blood Count 4.1 x10^3/uL (4.0-11.0) Red Blood Count 3.88 x10^6/uL (3.50-5.40) Hemoglobin 9.5 g/dL (12.0-15.5) Hematocrit 30.1 % (36.0-47.0) Mean Corpuscular Volume 78 fL (79-100) Mean Corpuscular Hemoglobin 24 pg (25-35) Mean Corpuscular Hemoglobin Concent 31 g/dL (31-37) Red Cell Distribution Width 18.6 % (11.5-14.5) Platelet Count 179 x10^3/uL (140-400) Neutrophils (%) (Auto) 61 % (31-73) Lymphocytes (%) (Auto) 23 % (24-48) Monocytes (%) (Auto) 12 % (0-9) Eosinophils (%) (Auto) 3 % (0-3) Basophils (%) (Auto) 1 % (0-3) Neutrophils # (Auto) 2.5 x10^3/uL (1.8-7.7) Lymphocytes # (Auto) 0.9 x10^3/uL (1.0-4.8) Monocytes # (Auto) 0.5 x10^3/uL (0.0-1.1) Eosinophils # (Auto) 0.1 x10^3/uL (0.0-0.7) Basophils # (Auto) 0.0 x10^3/uL (0.0-0.2) Sodium Level 139 mmol/L (136-145) Potassium Level 4.4 mmol/L (3.5-5.1) Chloride Level 104 mmol/L (98-107) Carbon Dioxide Level 29 mmol/L (21-32) Anion Gap 6 (6-14) Blood Urea Nitrogen 22 mg/dL (7-20) Creatinine 1.4 mg/dL (0.6-1.0) Estimated GFR (Cockcroft-Gault) 43.6 BUN/Creatinine Ratio 16 (6-20) Glucose Level 129 mg/dL (70-99) Calcium Level 8.4 mg/dL (8.5-10.1) Phosphorus Level 4.0 mg/dL (2.6-4.7) Magnesium Level 1.8 mg/dL (1.8-2.4) Total Bilirubin 0.3 mg/dL (0.2-1.0) Aspartate Amino Transf (AST/SGOT) 14 U/L (15-37) Alanine Aminotransferase (ALT/SGPT) 17 U/L (14-59) Alkaline Phosphatase 80 U/L (46-116) Total Protein 6.4 g/dL (6.4-8.2) Albumin 2.8 g/dL (3.4-5.0) Albumin/Globulin Ratio 0.8 (1.0-1.7) Glucose (Fingerstick) 192 mg/dL (70-99) 155 mg/dL (70-99) 221 mg/dL (70-99) Test 07/11/20 08:47 07/11/20 11:56 07/11/20 17:00 07/11/20 20:58 Glucose (Fingerstick) 128 mg/dL (70-99) 148 mg/dL (70-99) 135 mg/dL (70-99) 198 mg/dL (70-99) Test 07/12/20 06:54 Glucose (Fingerstick) 185 mg/dL (70-99) Laboratory Tests Test 07/11/20 11:56 07/11/20 17:00 07/11/20 20:58 07/12/20 06:54 Glucose (Fingerstick) 148 mg/dL (70-99) 135 mg/dL (70-99) 198 mg/dL (70-99) 185 mg/dL (70-99) Medications Active Scripts Medications Dose Route/Sig Max Daily Dose Days Date Category Dose Instructions [place] 5-325 Tablet (Acetaminophen/Hydrocodone Bitart) 1 Each Tablet 1 Tab PO PRN Q6HRS PRN 7 12/18/19 Rx Lidocaine PATCH (Lidocaine) 1 Each Adh..patch 1 Each TP DAILY 10 07/31/19 Rx REMOVE AFTER 12 HOURS Gabapentin 600 Mg Tablet 600 Mg PO TID 07/31/19 Rx [place] 5-325 Tablet (Acetaminophen/Hydrocodone Bitart) 1 Each Tablet 1 Tab PO PRN Q6HRS PRN 02/13/19 Rx No driving or drinking alcohol while taking this medication [Pantoprazole] 40 MG Tablet.dr 40 Mg PO DAILYAC 11/22/18 Rx Furosemide 40 Mg Tablet 40 Mg PO DAILY08 PRN 30 11/22/18 Rx Losartan Potassium (Losartan Potassium) 25 Mg Tablet 25 Mg PO DAILY 30 11/21/18 Rx Gabapentin (Gabapentin) 300 Mg Capsule 300 Mg PO DAILY 11/20/18 Reported Zolpidem Tartrate 5 Mg Tablet 5 Mg PO PRN QHS PRN 11/20/18 Reported Pravastatin Sodium 40 Mg Tablet 1 Tab PO QHS 04/06/16 Reported Novolog Flexpen (Insulin Aspart) 100 Unit/1 Ml Insuln.pen 20 Unit SQ 10/17/14 Reported with meals if BG > 150 Cilostazol 100 Mg Tablet 1 Tab PO BID 10/17/14 Reported Lantus Solostar (Insulin Glargine,Hum.rec.anlog) 100 Unit/1 Ml Insuln.pen 60 Unit SQ QHS 10/17/14 Reported Impression . IMPRESSION: 1. Hemoptysis, suspect secondary to pneumonia, acute bronchitis, difficult to rule out clinical endobronchial lesion. 2. Abnormal CT chest revealing several findings including a right upper lobe nodule, ground glass opacities and pleural fat on the left side. 3. Acute exacerbation of chronic obstructive pulmonary disease. 4. Negative influenza screen. 5. History of colon cancer, status post resection and chemotherapy. 6. Secondary pulmonary hypertension. 7. Systemic hypertension. 8. Chronic renal insufficiency. 9. Diabetes. 10. Right upper lobe pulmonary nodule, repeat CT chest. 11. 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 Discussed with ENT at [facility], Dr.Niya patient accepted to [facility] when bed becomes available. Patient tentatively scheduled for OR on Wednesday, at [facility] with Dr. Flores and patient Continue empiric antibiotics SARS-CoV-2 negative Continue home meds Repeat CT chest in 2 months MAGEN KEMP MD Jul 12, 2020 10:08
--- NOTE | 2020-07-12 14:21 | PDOC ---
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 Patient did have one episode of hemoptysis. No respiratory compromise. Pending CT of the soft tissue of the neck. Patient's chart, labs, images were reviewed and discussed with RN 07/11/2020 No acute events overnight. 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 Patient will need to have to be transferred for ENT evaluation. Likely she will need surgery on Wednesday. Patient's chart, labs, images were reviewed and discussed with RN 07/10/2020 No acute events overnight. Patient is saturating 97% on 1 L nasal cannula. Denies any more hemoptysis and shortness of breath. Plan for bronchoscopy tomorrow in the morning. Patient's chart, labs, images were reviewed and discussed with RN 84-year-old female with past medical history of CHF with EF of 55% and grade 1 diastolic dysfunction on echocardiogram in April 2020, COPD, hypertension, dyslipidemia, remote history of colon cancers with colectomy and status post chemotherapy who presents with hemoptysis today. She endorses bright red blood for the past couple hours. She has never had this episode before. She has recently changed her diuretics from furosemide to Bumex. She does endorse some increased lower extremity edema the past few days. Denies nausea vomiting, fever, chest pain, generalized weakness, abdominal pain, bloody stools or diarrhea. She is not on any blood thinners. Recently started in May for cilostazol. Vitals/I&O Vitals/I&O: Vital Signs Date Time Temp Pulse Resp B/P (MAP) Pulse Ox O2 Delivery O2 Flow Rate FiO2 07/12/20 12:48 Nasal Cannula 2.0 07/12/20 09:01 87 151/33 07/12/20 07:00 97.8 19 97 97.8 I & O 07/11/20 07/11/20 07/12/20 15:00 23:00 07:00 Intake Total 620 ml 520 ml Output Total 200 ml Balance 620 ml 320 ml Physical Exam Lungs: Crackles Labs Labs: Laboratory Tests Test 07/11/20 17:00 07/11/20 20:58 07/12/20 06:54 07/12/20 11:04 Glucose (Fingerstick) 135 mg/dL (70-99) 198 mg/dL (70-99) 185 mg/dL (70-99) 234 mg/dL (70-99) Assessment and Plan Assessmemt and Plan Problems Medical Problems: (1) Hemoptysis Status: Acute (2) Suspected COVID-19 virus infection Status: Acute Comment Review of Relevant I have reviewed the following items dayami (where applicable) has been applied. Justifications for Admission Other Justification PNEUMONIA AND HEMOPTYSIS GERARDO VILLASENOR MD Jul 12, 2020 14:21
--- NOTE | 2020-07-12 14:58 | RAD ---
EXAM: CT scan of the neck without intravenous contrast. DATE: 07/12/2020 2:02 PM INDICATION: Epiglottic mass COMPARISON: None. TECHNIQUE: Axial computed tomography images of the neck without intravenous contrast according to t standard neck protocol. Multiplanar reformats were performed. One or more of the following dose re duction techniques were utilized: Automated exposure control (AEC), Adjustment of mA and/or kV accord ing to patient size, Use of iterative reconstruction technique such as ASiR, CT scan done according t o ALARA and image gently/image wisely FINDINGS: Thickening of the epiglottis and larynx. No cervical lymphadenopathy. The parotid and submandibular glands are normal. Enlarged multinodular t hyroid with intrathoracic extension of the left lobe. The unenhanced vessels of the neck are normal. The visualized aerodigestive tract is normal. The visualized posterior fossa and brain is normal. The visualized orbits and paranasal sinuses are n ormal. The cervical spine is normal. Increasing right upper lobe groundglass opacities. Stable right upper lobe 1.2 cm nodule (series 2 im age 14). IMPRESSION: 1. Thickening of the epiglottis and larynx, nonspecific but could be infectious/inflammatory or indic ate an underlying lesion. Consider direct visualization. 2. Increasing right upper lobe groundglass opacities and consolidation concerning for infection. 3. Stable right upper lobe 1.2 cm nodule. Recommend three-month follow-up chest CT to assess stabilit y. Alternatively, this may be amenable to PET/CT based on size. 4. No cervical lymphadenopathy. 5. Multinodular goiter with intrathoracic extension. Electronically signed by: Idris Salazar MD (07/12/2020 2:56 PM) [id number]
[2020-07-12 19:00] VITALS: BP 122/65
[2020-07-12] MEDS: ZOLPIDEM 5 MG TABLET. PO PRN (21:06)
[2020-07-12 23:51] VITALS: BP 142/70
[2020-07-13 03:00] VITALS: BP 153/69
[2020-07-13] MEDS: PANTOPRAZOLE 40 MG TABLET.DR. PO SCH (06:45)
[2020-07-13 08:00] VITALS: BP 147/79
[2020-07-13] MEDS: NICOTINE 14MG PATCH. TD PRN (08:50)
[2020-07-13] MEDS: LOSARTAN POTASSIUM 25 MG TABLET. PO SCH (08:51)
[2020-07-13] MEDS: GABAPENTIN 300 MG CAPSULE. PO SCH (08:51)
[2020-07-13] MEDS: LACTOBACILLUS RHAMNOSUS GG 1 CAPSULE. PO SCH (08:51)
[2020-07-13] MEDS: INSULIN LISPRO 300 UNITS/3 ML VIAL. SQ SCH ×3 (08:56→17:42)
--- NOTE | 2020-07-13 10:31 | PDOC ---
PULMONARY PROGRESS NOTES DATE: 07/13/20 TIME: 10:28 Subjective Patient with no further hemoptysis, Remains on N/C awaiting transfer to [facility] Vitals Vital Signs Date Time Temp Pulse Resp B/P (MAP) Pulse Ox O2 Delivery O2 Flow Rate FiO2 07/13/20 08:51 69 147/79 07/13/20 08:30 Nasal Cannula 1.0 07/13/20 08:00 98.6 22 97 98.6 ROS: No Nausea, No Chest Pain, No Abdominal Pain, No Increase Cough Lungs: Crackles Cardiovascular: S1, S2 Abdomen: Soft Neuro Exam: Alert Extremities: No Edema Skin: Warm Labs Laboratory Tests Test 07/11/20 11:56 07/11/20 17:00 07/11/20 20:58 07/12/20 06:54 Glucose (Fingerstick) 148 mg/dL (70-99) 135 mg/dL (70-99) 198 mg/dL (70-99) 185 mg/dL (70-99) Test 07/12/20 11:04 07/12/20 16:36 07/12/20 20:41 07/13/20 07:58 Glucose (Fingerstick) 234 mg/dL (70-99) 136 mg/dL (70-99) 244 mg/dL (70-99) 189 mg/dL (70-99) Laboratory Tests Test 07/12/20 11:04 07/12/20 16:36 07/12/20 20:41 07/13/20 07:58 Glucose (Fingerstick) 234 mg/dL (70-99) 136 mg/dL (70-99) 244 mg/dL (70-99) 189 mg/dL (70-99) Medications Active Scripts Medications Dose Route/Sig Max Daily Dose Days Date Category Dose Instructions [place] 5-325 Tablet (Acetaminophen/Hydrocodone Bitart) 1 Each Tablet 1 Tab PO PRN Q6HRS PRN 7 12/18/19 Rx Lidocaine PATCH (Lidocaine) 1 Each Adh..patch 1 Each TP DAILY 10 07/31/19 Rx REMOVE AFTER 12 HOURS Gabapentin 600 Mg Tablet 600 Mg PO TID 07/31/19 Rx [place] 5-325 Tablet (Acetaminophen/Hydrocodone Bitart) 1 Each Tablet 1 Tab PO PRN Q6HRS PRN 02/13/19 Rx No driving or drinking alcohol while taking this medication [Pantoprazole] 40 MG Tablet.dr 40 Mg PO DAILYAC 11/22/18 Rx Furosemide 40 Mg Tablet 40 Mg PO DAILY08 PRN 30 11/22/18 Rx Losartan Potassium (Losartan Potassium) 25 Mg Tablet 25 Mg PO DAILY 30 11/21/18 Rx Gabapentin (Gabapentin) 300 Mg Capsule 300 Mg PO DAILY 11/20/18 Reported Zolpidem Tartrate 5 Mg Tablet 5 Mg PO PRN QHS PRN 11/20/18 Reported Pravastatin Sodium 40 Mg Tablet 1 Tab PO QHS 04/06/16 Reported Novolog Flexpen (Insulin Aspart) 100 Unit/1 Ml Insuln.pen 20 Unit SQ 10/17/14 Reported with meals if BG > 150 Cilostazol 100 Mg Tablet 1 Tab PO BID 10/17/14 Reported Lantus Solostar (Insulin Glargine,Hum.rec.anlog) 100 Unit/1 Ml Insuln.pen 60 Unit SQ QHS 10/17/[address] IMPRESSION: 1. Thickening of the epiglottis and larynx, nonspecific but could be infectious/inflammatory or indicate an underlying lesion. Consider direct visualization. 2. Increasing right upper lobe groundglass opacities and consolidation concerning for infection. 3. Stable right upper lobe 1.2 cm nodule. Recommend three-month follow-up chest CT to assess stability. Alternatively, this may be amenable to PET/CT based on size. 4. No cervical lymphadenopathy. 5. Multinodular goiter with intrathoracic extension. Impression . IMPRESSION: 1. Hemoptysis, suspect secondary to pneumonia, acute bronchitis, difficult to rule out clinical endobronchial lesion. 2. Abnormal CT chest revealing several findings including a right upper lobe nodule, ground glass opacities and pleural fat on the left side. 3. Acute exacerbation of chronic obstructive pulmonary disease. 4. Negative influenza screen. 5. History of colon cancer, status post resection and chemotherapy. 6. Secondary pulmonary hypertension. 7. Systemic hypertension. 8. Chronic renal insufficiency. 9. Diabetes. 10. Right upper lobe pulmonary nodule, repeat CT chest. 11. 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 Continue Supplemental oxygen as needed to keep sats above 92% Patient tentatively scheduled for OR on Wednesday, at [facility] Continue empiric antibiotics on levaquin SARS-CoV-[address] chest in [address] soft tissue neck reviewed PT/OT DVT/GI PPX DISPO: (ENT) has accepted patient to [facility] when bed becomes available MAGEN KEMP MD Jul 13, 2020 10:31
--- NOTE | 2020-07-13 10:38 | RAD ---
EXAM: Chest, single view. HISTORY: Hemoptysis. COMPARISON: CT dated 07/09/2020. FINDINGS: A frontal view of the chest is obtained. Has been interval increase in diffuse right lower lobe predominant interstitial infiltrate. There are suspected stable trace pleural effusions. There i s a stable prominent cardiac silhouette. There is no pneumothorax. IMPRESSION: Increase in diffuse right lower lobe predominant interstitial infiltrate with suspected t race pleural effusions. Electronically signed by: Pattie Dove MD (07/13/2020 10:35 AM) [facility]
[2020-07-13 10:41] LABS: BASO % 1 % (0-3); EOS # 0.1 x10^3/uL (0.0-0.7); EOS % 1 % (0-3); HEMATOCRIT 31.7 % (36.0-47.0); HEMOGLOBIN 9.9 g/dL (12.0-15.5); LYMPH # 0.7 x10^3/uL (1.0-4.8); LYMPH % 15 % (24-48); MEAN CORPUSCULAR HEMOGLOBIN 24 pg (25-35); MEAN CORPUSCULAR HGB CONC 31 g/dL (31-37); MEAN CORPUSCULAR VOLUME 78 fL (79-100); MONO # 0.7 x10^3/uL (0.0-1.1); MONO % 14 % (0-9); NEUT # 3.5 x10^3/uL (1.8-7.7); NEUT % 70 % (31-73); PLATELET COUNT 168 x10^3/uL (140-400); RED BLOOD COUNT 4.07 x10^6/uL (3.50-5.40); RED CELL DISTRIBUTION WIDTH 18.5 % (11.5-14.5); WHITE BLOOD COUNT 5.1 x10^3/uL (4.0-11.0)
[2020-07-13 10:59] LABS: CALCIUM 8.8 mg/dL (8.5-10.1); CREATININE 1.3 mg/dL (0.6-1.0); GFR 47.5; POTASSIUM 4.7 mmol/L (3.5-5.1)
--- NOTE | 2020-07-13 11:15 | PDOC ---
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 Fever 100.1 T-max overnight. Seen and examined bedside. No complaints of hemoptysis. Patient's chart, labs, images were reviewed and discussed with RN 07/12/2020 No acute events overnight. Patient did have one episode of hemoptysis. No respiratory compromise. Pending CT of the soft tissue of the neck. Patient's chart, labs, images were reviewed and discussed with RN 07/11/2020 No acute events overnight. 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 Patient will need to have to be transferred for ENT evaluation. Likely she will need surgery on Wednesday. Patient's chart, labs, images were reviewed and discussed with RN 07/10/2020 No acute events overnight. Patient is saturating 97% on 1 L nasal cannula. Denies any more hemoptysis and shortness of breath. Plan for bronchoscopy tomorrow in the morning. Patient's chart, labs, images were reviewed and discus sed with RN 84-year-old female with past medical history of CHF with EF of 55% and grade 1 diastolic dysfunction on echocardiogram in April 2020, COPD, hypertension, dyslipidemia, remote history of colon cancers with colectomy and status post chemotherapy who presents with hemoptysis today. She endorses bright red blood for the past couple hours. She has never had this episode before. She has recently changed her diuretics from furosemide to Bumex. She does endorse some increased lower extremity edema the past few days. Denies nausea vomiting, fever, chest pain, generalized weakness, abdominal pain, bloody stools or diarrhea. She is not on any blood thinners. Recently started in May for cilostazol. Vitals/I&O Vitals/I&O: Vital Signs Date Time Temp Pulse Resp B/P (MAP) Pulse Ox O2 Delivery O2 Flow Rate FiO2 07/13/20 08:51 69 147/79 07/13/20 08:30 Nasal Cannula 1.0 07/13/20 08:00 98.6 22 97 98.6 I & O 07/12/20 07/12/20 07/13/20 15:00 23:00 07:00 Intake Total 600 ml 450 ml Output Total 350 ml 300 ml Balance 250 ml 150 ml Physical Exam Lungs: Crackles Labs Labs: Laboratory Tests Test 07/12/20 16:36 07/12/20 20:41 07/13/20 07:58 07/13/20 10:10 Glucose (Fingerstick) 136 mg/dL (70-99) 244 mg/dL (70-99) 189 mg/dL (70-99) White Blood Count 5.1 x10^3/uL (4.0-11.0) Red Blood Count 4.07 x10^6/uL (3.50-5.40) Hemoglobin 9.9 g/dL (12.0-15.5) Hematocrit 31.7 % (36.0-47.0) Mean Corpuscular Volume 78 fL (79-100) Mean Corpuscular Hemoglobin 24 pg (25-35) Mean Corpuscular Hemoglobin Concent 31 g/dL (31-37) Red Cell Distribution Width 18.5 % (11.5-14.5) Platelet Count 168 x10^3/uL (140-400) Neutrophils (%) (Auto) 70 % (31-73) Lymphocytes (%) (Auto) 15 % (24-48) Monocytes (%) (Auto) 14 % (0-9) Eosinophils (%) (Auto) 1 % (0-3) Basophils (%) (Auto) 1 % (0-3) Neutrophils # (Auto) 3.5 x10^3/uL (1.8-7.7) Lymphocytes # (Auto) 0.7 x10^3/uL (1.0-4.8) Monocytes # (Auto) 0.7 x10^3/uL (0.0-1.1) Eosinophils # (Auto) 0.1 x10^3/uL (0.0-0.7) Basophils # (Auto) 0.0 x10^3/uL (0.0-0.2) Sodium Level 140 mmol/L (136-145) Potassium Level 4.7 mmol/L (3.5-5.1) Chloride Level 103 mmol/L (98-107) Carbon Dioxide Level 26 mmol/L (21-32) Anion Gap 11 (6-14) Blood Urea Nitrogen 21 mg/dL (7-20) Creatinine 1.3 mg/dL (0.6-1.0) Estimated GFR (Cockcroft-Gault) 47.5 Glucose Level 245 mg/dL (70-99) Calcium Level 8.8 mg/dL (8.5-10.1) Magnesium Level 2.0 mg/dL (1.8-2.4) Assessment and Plan Assessmemt and Plan Problems Medical Problems: (1) Hemoptysis Status: Acute (2) Suspected COVID-19 virus infection Status: Acute Comment Review of Relevant I have reviewed the following items dayami (where applicable) has been applied. Justifications for Admission Other Justification PNEUMONIA AND HEMOPTYSIS GERARDO VILLASENOR MD Jul 13, 2020 11:15
[2020-07-13 11:27] VITALS: BP 147/47
[2020-07-13 15:29] VITALS: BP 147/57
--- NOTE | 2020-07-13 15:51 | SNU/HH DC ---
DISCHARGE ORDERS DISCHARGE INFORMATION: DISCHARGE DATE: Jul 13, 2020 FINAL DIAGNOSIS Problems Medical Problems: (1) Hemoptysis Status: Acute (2) Suspected COVID-19 virus infection Status: Acute CONDITION ON DISCHARGE: Stable CODE STATUS: Code Status: Full POST DISCHARGE ORDERS: ACTIVITY ORDERS: Activity as tolerated WEIGHT BEARING STATUS: As tolerated WOUND/INCISION CARE: Ice to area for comfort, No wound care needed CHECKS AFTER DISCHARGE: CHECKS AFTER DISCHARGE: Check blood press - daily, Check blood sugar, ac/hs FOLLOW-UP: PHYSICIAN FOLLOW-UP: PCP after hospitalization ADDITIONAL FOLLOW-UP: ENT for epiglottic tumor TREATMENT/EQUIPMENT ORDERS: ADAPTIVE EQUIPMENT NEEDED: None Physical Therapy For: Evalulation/Treatment Occupational Therapy For: Evaluation/Treatment Speech Language Pathology For: Evaluation/Treatment DISCHARGE MEDICATIONS: Home Meds Active Scripts Hydrocodone/Apap 5-325 ([place] 5-325 TABLET) 1 Each Tablet, 1 TAB PO PRN Q6HRS PRN for PAIN for 7 Days, #20 TAB 0 Refills Prov:KIRK FARAH MD 12/18/19 Lidocaine (Lidocaine PATCH ) 1 Each Adh..patch, 1 EACH TP DAILY for FOR LOCAL PAIN for 10 Days, #10 PATCH REMOVE AFTER 12 HOURS Prov:ADRIANE MASSEY KIER HAND 07/31/19 Gabapentin (GABAPENTIN) 600 Mg Tablet, 600 MG PO TID for NEUROGENIC PAIN, #30 TAB Prov:ADRIANE MASSEY KIER HAND 07/31/19 Hydrocodone/Apap 5-325 ([place] 5-325 TABLET) 1 Each Tablet, 1 TAB PO PRN Q6HRS PRN for PAIN, #8 TAB 0 Refills No driving or drinking alcohol while taking this medication Prov:ENDY MONTANA APRN 02/13/19 [Pantoprazole] [address] Heath Conflict Check, 40 MG PO DAILYAC Prov:FUNMILAYO VILLAVICENCIO MD 11/22/18 Furosemide (FUROSEMIDE) 40 Mg Tablet, 40 MG PO DAILY08 PRN for leg swelling for 30 Days, #30 TAB Prov:FUNMILAYO VILLAVICENCIO MD 11/22/18 Losartan Potassium (LOSARTAN POTASSIUM ) 25 Mg Tablet, 25 MG PO DAILY for HYPERTENSION for 30 Days, #30 TAB Prov:FUNMILAYO VILLAVICENCIO MD 11/21/18 Reported Medications Gabapentin (GABAPENTIN ) 300 Mg Capsule, 300 MG PO DAILY for NEUROGENIC PAIN, CAP 11/20/18 Zolpidem Tartrate (ZOLPIDEM TARTRATE) 5 Mg Tablet, 5 MG PO PRN QHS PRN for INSOMNIA, TAB 0 Refills 11/20/18 Pravastatin Sodium (PRAVASTATIN SODIUM) 40 Mg Tablet, 1 TAB PO QHS, #90 TAB 1 Refill 04/06/16 Insulin Aspart (NOVOLOG FLEXPEN) 100 Unit/1 Ml Insuln.pen, 20 UNIT SQ, SYR with meals if BG > 150 10/17/14 Cilostazol (CILOSTAZOL) 100 Mg Tablet, 1 TAB PO BID for "blood flow", #60 TAB 5 Refills 10/17/14 Insulin Glargine,Hum.rec.anlog (LANTUS SOLOSTAR) 100 Unit/1 Ml Insuln.pen, 60 UNIT SQ QHS for blood glucose, #15 ML 3 Refills 10/17/14 GERARDO VILLASENOR MD Jul 13, 2020 15:50
--- NOTE | 2020-07-13 16:05 | PDOC3 ---
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 Fever 100.1 T-max overnight. Seen and examined bedside. No complaints of hemoptysis. Patient's chart, labs, images were reviewed and discussed with RN 07/12/2020 No acute events overnight. Patient did have one episode of hemoptysis. No respiratory compromise. Pending CT of the soft tissue of the neck. Patient's chart, labs, images were reviewed and discussed with RN 07/11/2020 No acute events overnight. 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 Patient will need to have to be transferred for ENT evaluation. Likely she will need surgery on Wednesday. Patient's chart, labs, images were reviewed and discussed with RN 07/10/2020 No acute events overnight. Patient is saturating 97% on 1 L nasal cannula. Denies any more hemoptysis and shortness of breath. Plan for bronchoscopy tomorrow in the morning. Patient's chart, labs, images were reviewed and discussed with RN 84-year-old female with past medical history of CHF with EF of 55% and grade 1 diastolic dysfunction on echocardiogram in April 2020, COPD, hypertension, dyslipidemia, remote history of colon cancers with colectomy and status post chemotherapy who presents with hemoptysis today. She endorses bright red blood for the past couple hours. She has never had this episode before. She has recently changed her diuretics from furosemide to Bumex. She does endorse some increased lower extremity edema the past few days. Denies nausea vomiting, fever, chest pain, generalized weakness, abdominal pain, bloody stools or diarrhea. She is not on any blood thinners. Recently started in May for cilostazol. Disposition: Disposition/Orders: D/C to Another Facility Activity: Activity: Resume previous activity Diet: Diet: Cardiac Medications: Home Meds Active Scripts Hydrocodone/Apap 5-325 (NORCO 5-325 TABLET) 1 Each Tablet, 1 TAB PO PRN Q6HRS PRN for PAIN for 7 Days, #20 TAB 0 Refills Prov:KIRK FARAH MD 12/18/19 Lidocaine (Lidocaine PATCH ) 1 Each Adh..patch, 1 EACH TP DAILY for FOR LOCAL PAIN for 10 Days, #10 PATCH REMOVE AFTER 12 HOURS Prov:ADRIANE MASSEY [employer] 07/31/19 Gabapentin (GABAPENTIN) 600 Mg Tablet, 600 MG PO TID for NEUROGENIC PAIN, #30 TAB Prov:ADRIANE MASSEY [employer] 07/31/19 Hydrocodone/Apap 5-325 ([place] 5-325 TABLET) 1 Each Tablet, 1 TAB PO PRN Q6HRS PRN for PAIN, #8 TAB 0 Refills No driving or drinking alcohol while taking this medication Prov:ENDY MONTANA [employer]ANT 02/13/19 [Pantoprazole] 40 MG [address]T.DR Heath Conflict Check, 40 MG PO DAILYAC Prov:FUNMILAYO VILLAVICENCIO MD 11/22/18 Furosemide (FUROSEMIDE) 40 Mg Tablet, 40 MG PO DAILY08 PRN for leg swelling for 30 Days, #30 TAB Prov:FUNMILAYO VILLAVICENCIO MD 11/22/18 Losartan Potassium (LOSARTAN POTASSIUM ) 25 Mg Tablet, 25 MG PO DAILY for HYPERTENSION for 30 Days, #30 TAB Prov:FUNMILAYO VILLAVICENCIO MD 11/21/18 Reported Medications Gabapentin (GABAPENTIN ) 300 Mg Capsule, 300 MG PO DAILY for NEUROGENIC PAIN, CAP 11/20/18 Zolpidem Tartrate (ZOLPIDEM TARTRATE) 5 Mg Tablet, 5 MG PO PRN QHS PRN for INSOMNIA, TAB 0 Refills 11/20/18 Pravastatin Sodium (PRAVASTATIN SODIUM) 40 Mg Tablet, 1 TAB PO QHS, #90 TAB 1 Refill 04/06/16 Insulin Aspart (NOVOLOG FLEXPEN) 100 Unit/1 Ml Insuln.pen, 20 UNIT SQ, SYR with meals if BG > 150 10/17/14 Cilostazol (CILOSTAZOL) 100 Mg Tablet, 1 TAB PO BID for "blood flow", #60 TAB 5 Refills 10/17/14 Insulin Glargine,Hum.rec.anlog (LANTUS SOLOSTAR) 100 Unit/1 Ml Insuln.pen, 60 UNIT SQ QHS for blood glucose, #15 ML 3 Refills 10/17/14 Scheduled Cilostazol (Cilostazol), 1 TAB PO BID, (Reported) Gabapentin (Gabapentin ), 300 MG PO DAILY, (Reported) Gabapentin (Gabapentin), 600 MG PO TID Insulin Glargine,Hum.rec.anlog (Lantus Solostar), 60 UNIT SQ QHS, (Reported) Lidocaine (Lidocaine PATCH ), 1 EACH TP DAILY Losartan Potassium (Losartan Potassium ), 25 MG PO DAILY Pravastatin Sodium (Pravastatin Sodium), 1 TAB PO QHS, (Reported) [Pantoprazole], 40 MG PO DAILYAC Scheduled PRN Furosemide (Furosemide), 40 MG PO DAILY08 PRN for leg swelling Hydrocodone/Apap 5-325 ([place] 5-325 Tablet), 1 TAB PO PRN Q6HRS PRN for PAIN Hydrocodone/Apap 5-325 ([place] 5-325 Tablet), 1 TAB PO PRN Q6HRS PRN for PAIN Zolpidem Tartrate (Zolpidem Tartrate), 5 MG PO PRN QHS PRN for INSOMNIA, (Reported) Miscellaneous Medications Insulin Aspart (Novolog Flexpen), 20 UNIT SQ, (Reported) Total Time: Total Time: Total time spent was 60 minutes in preparing scripts, discharge planning with SW and RN, and preparing this discharge summary. Patient seen and examined on day of discharge. Advanced care planning: A total time of > 17 minutes was spent from 900 to 930 face to face in discussion with the patient regarding their goals of care and pain management. Justicifation of Admission Dx: Justifications for Admission: Justification of Admission Dx: Yes Respiratory Failure: Severe Resp Distress GERARDO VILLASENOR MD Jul 13, 2020 16:05
--- NOTE | 2020-07-13 18:23 | NUR ---
Discharge Note: [facility] [place] Discharge instructions and discharge home medications reviewed with Other facility and a copy given. All questions have been answered and understanding verbalized. The following instructions and handouts were given: copy of chart, medication lists, and discharge order. Peripheral IV left intact and saline locked to transfer to [facility]. Patient discharged to [facility] on the [place] with Ambulance Personnel via [facility]
[2020-10-15] MEDS ORDERED: CILO100T PO (21:02)
[2020-10-15] MEDS ORDERED: LOSA-73 PO (21:02)
== END 2020-07-13 18:25 | disposition short-term general hospital (02) | DRG 146 ==
LOC: ER 15:08 → 6 SOUTH 18:19 → 5 NORTH 07-11 05:46
PROVIDERS: ADMIT Internal Medicine; ATTEND Internal Medicine
PROC: 0BJ08ZZ Inspection of Tracheobronchial Tree, Via Natural or Artificial Opening Endoscopic (ICD-10-PCS; principal; 2020-07-11 09:00)
DX: D02.0 Carcinoma in situ of larynx (principal); N17.0 Acute kidney failure with tubular necrosis; R04.2 Hemoptysis; I13.0 Hypertensive heart and chronic kidney disease with heart failure and stage 1 through stage 4 chronic kidney disease, or unspecified chronic kidney disease; I50.32 Chronic diastolic (congestive) heart failure; J44.1 Chronic obstructive pulmonary disease with (acute) exacerbation; D50.9 Iron deficiency anemia, unspecified; E11.22 Type 2 diabetes mellitus with diabetic chronic kidney disease; E11.42 Type 2 diabetes mellitus with diabetic polyneuropathy; E78.00 Pure hypercholesterolemia, unspecified; E78.5 Hyperlipidemia, unspecified; I27.29 Other secondary pulmonary hypertension; N18.9 Chronic kidney disease, unspecified; Z85.038 Personal history of other malignant neoplasm of large intestine; Z87.891 Personal history of nicotine dependence; Z90.710 Acquired absence of both cervix and uterus; Z92.21 Personal history of antineoplastic chemotherapy; Z96.649 Presence of unspecified artificial hip joint; M19.90 Unspecified osteoarthritis, unspecified site; Z79.899 Other long term (current) drug therapy; Z71.6 Tobacco abuse counseling; Z20.822 Contact with and (suspected) exposure to COVID-19
CPT/HCPCS: 31622; 36415; 70490; 71045; 71250; 74018; 74176; 80048; 80053; 82550; 82728; 82962; 83735; 83880; 84100; 84484; 85025; 85610; 87804; 93005; 94640; 96374; 99285; J0456; J1815; J1956; J2270; J2704; J7120; U0003; 97530-GP; G0378

== ENCOUNTER → 2020-08-09 | Outpatient (CLI) | payer MEDICARE, BC ==
[2020-07-13 15:29] VITALS: BP 147/57
--- NOTE | 2020-08-12 14:49 | RAD ---
EXAM: NM PET/CT SKULL BASE TO MID THIGH EXAM DATE: 08/09/2020 INDICATION: Epiglottic mass. History of colon cancer. Patient's last insulin dose was last night. RADIOPHARMACEUTICAL: 12.8 mCi of F-18 Fluorodeoxyglucose (FDG) I.V. via the left forearm. TECHNIQUE: Patient weight: 232 pounds.. Following at least four-hour fasting, the patient's blood glu cose was 95 mg/dl. Approximately 1 hour 25 minutes after administration of FDG, overlapping emission scanning was performed from the orbital meatal line through the pelvis. A low-dose CT was performed for attenuation correction purposes and anatomic localization. Fused images of PET and CT were revie wed. Any standardized uptake values (SUV) reported are maximum values within a volume region of inte rest, expressed in gm/ml. COMPARISON: CT of chest with contrast of 07/14/2020, CT soft tissue neck without IV contrast of FINDINGS: PET: There is high and heterogeneous background FDG activity in the soft tissues. In the head and neck, epiglottic thickening demonstrates abnormal FDG activity to a max SUV of 10.4. No abnormal FDG uptake identified in the cervical lymph nodes. The patient's enlarged left thyroid lo be shows abnormal FDG uptake to max SUV of 4.69. This has substernal extension. In the chest, no abnormal FDG uptake besides that seen in the elongated left thyroid lobe is identifi ed. Background mediastinal FDG uptake shows a max SUV of 3.29. In particular, the previously reported 1.2 cm right upper lobe pulmonary nodule shows a max SUV of 1.39. In the abdomen and pelvis, no abnormal FDG uptake. Background FDG uptake in the liver shows a max SUV of 3.69. In the bones, no abnormal uptake. CT: Head and neck again reveals epiglottic and predominantly left-sided supraglottic laryngeal mucosal th ickening. No cervical adenopathy is identified. The patient's left thyroid lobe is enlarged and conta ins heterogeneously calcified nodules. This left thyroid lobe measures 9.2 cm craniocaudal by 4.1 cm mediolateral and 4.7 cm anteroposterior and demonstrates substernal extension to the level of the aor tic arch. The mediastinum shows mild wall thickening in the thoracic esophagus and dense calcifications in the normal caliber aorta. The heart shows multivessel coronary calcifications. No mediastinal or hilar ma ss and no adenopathy. Small hiatal hernia. Lungs show paraseptal pattern emphysema and the previously reported right upper lobe 1.2 cm pulmonary nodule. The bilateral atelectatic and consolidative changes evident on the prior study have improved markedly in the interval. Residual atelectasis in the lateral segment left lower lobe is noted. Ther e is a 4.2 cm long, 1.4 cm fatty mass abutting the pleura in the left hemithorax, compatible with a l ipoma. Postsurgical changes from a previous laparotomy and partial resection of the sigmoid colon are noted. There is extensive colonic diverticulosis without CT findings of acute diverticulitis. No evidence of bowel obstruction, perforation or acute inflammation. Solid abdominal organs are unremarkable. No free air, ascites or organized fluid collection. The uterus is surgically absent.The urinary bladder is unremarkable. The bones show right hip arthroplasty. No fracture or aggressive appearing osseous lesions are seen. IMPRESSION: 1. No evidence of FDG avid malignancy in the bowel status post previous partial sigmoid colectomy. 2. Epiglottic soft tissue thickening shows abnormal FDG uptake to max SUV of 10.4. Correlate with the clinical exam. No clear evidence of associated cervical adenopathy. 3. Patient has an enlarged left thyroid lobe that demonstrates abnormal FDG uptake to max SUV of 4.69 . 4. Otherwise, no abnormal FDG uptake identified in the included field of view, including the 1.2 cm r ight upper lobe pulmonary nodule. Electronically signed by: Tenisha Mchugh MD (08/12/2020 2:46 PM) [id number]
== END ==
LOC: PETSC 10:18
PROVIDERS: ATTEND Radiology Radiation Oncology
DX: C32.1 Malignant neoplasm of supraglottis (principal); K57.30 Diverticulosis of large intestine without perforation or abscess without bleeding; J43.9 Emphysema, unspecified; R91.1 Solitary pulmonary nodule; E04.9 Nontoxic goiter, unspecified
CPT/HCPCS: 78815; A9552

== ENCOUNTER → 2020-08-26 | Outpatient (CLI) | payer MEDICARE, BC ==
[~2020-08-26] MED LIST changes: +LIDOCAINE 1% Multi-Dose 20 ML VIAL. INJ ONE
--- NOTE | 2020-08-26 15:35 | RAD ---
EXAM: ULTRASOUND-GUIDED THYROID FINE-NEEDLE ASPIRATION. HISTORY: Hypermetabolic left thyroid gland with multiple nodules on PET CT. Patient is an 84-year-old woman with history of colon cancer and epiglottic mass. Ultrasound-guided biopsy is requested. FINDINGS: The procedure along with its risks and benefits were explained to the patient. They agreed to proceed. A timeout procedure was performed. Sonographic images of the thyroid gland were obtained. The mixed solid and cystic target nodule in th e left thyroid lobe was adequately visualized for biopsy. This measures 3.4 cm in maximum length. The overlying skin was sterilely prepped and infiltrated with 1% lidocaine for local anesthesia. Unde r ultrasound guidance, 3 aspirates were obtained using 25-gauge needles. These were hand delivered to pathology who determined them adequate for diagnosis. A sterile dressing was placed. There were no i mmediate complications. IMPRESSION: 1. Successful ultrasound-guided fine-needle aspiration of the dominant left thyroid nodule in the sup raclavicular portion. Electronically signed by: Tenisha Mchugh MD (08/26/2020 3:00 PM) [id number]
--- NOTE | 2020-08-26 15:58 | RAD ---
EXAM: Thyroid Ultrasound INDICATION: Reason: THYROID NODULE; HX OF EPIGLOTTIS CANCER / Spl. Instructions: / History: ? TECHNIQUE: Real-time ultrasound of the thyroid was performed with permanent freeze-frame documentatio n. COMPARISON: PET CT of 08/09/2020 ? FINDINGS: THYROID: Thyroid gland is heterogeneous in echogenicity. ? Right Lobe: 5.2 x 2.3 x 3.4 cm. ? Left Lobe: 6.8 x 3.3 x 3.8 cm. ? Isthmus: 0.3 cm. ?? There is a dominant left thyroid lobe nodule measuring 4.1 x 3.5 x 2.6 cm. It is almost completely solid (2 ), isoechoic (1) Wider than tall (0), smooth (0), and contains macro calcifications (1) for a total points score of 4 and a TI RADS score of 4, moderately suspicious. FNA typically recommended for nodules or masses 1.5 cm or greater in size. ? OTHER: No evidence of adjacent cervical adenopathy. ? IMPRESSION: ? Left thyroid mass measuring 4.1 x 3.5 x 2.6 cm, correlating with increased hypermetabolic activity on PET CT. Fine needle aspiration biopsy is recommended. Electronically signed by: Tenisha Mchugh MD (08/26/2020 3:55 PM) [id number]
--- NOTE | 2020-08-28 15:12 | PATHOLOGY ---
Note [facility] Accession Number: [id number] TESTS RESULT FLAG UNITS REF RANGE LAB Clinician Provided Cytology Information No. of containers..01 Other (Miscellaneous) Source: LEFT THYROID MASS DIAGNOSIS: LEFT THYROID MASS FOLLICULAR LESION OF UNDETERMINED SIGNIFICANCE. MANY CLUSTERS OF FOLLICULAR CELLS WITH FOCAL HURTHLE CELL CHANGES AND MILD ATYPIA, AND HEMOSIDERIN-LADEN MACROPHAGES PRESENT. THE CASE IS ALSO EXAMINED BY DR. CHENG, CYTOPATHOLOGIST, WHO CONCURS WITH THE DIAGNOSIS. THIS INTERPRETATION INCLUDES EVALUATION OF A CELL BLOCK. Signed out by: Dave Owen MD, Pathologist NPI- [id number] Performed by: Betzaida Valdivia, Prep Cook ([facility]) Gross description: 30ML, CLEAR RED, 4FX 4AD 4H /LCS 08/26/2020 1553 Local FLAG LEGEND: L-Low Normal,H-High Normal,LL-Alert Low,HH-Alert High <-Panic Low,>-Panic High,A-Abnormal,AA-Critical Abnormal Performed at: [facility] [address] [place] [address] James Cheng MD, [address] [place] [address] Dave Owen MD, Specimen Comment: [id number] Performed at: 01 [facility] [address], [place], [place] [id number] MD James Cheng MD Phone: [phone]
== END | disposition home or self-care (01) ==
LOC: US 10:14
PROVIDERS: ATTEND Radiology Radiation Oncology
DX: E04.1 Nontoxic single thyroid nodule (principal); E78.00 Pure hypercholesterolemia, unspecified; M19.90 Unspecified osteoarthritis, unspecified site; I12.9 Hypertensive chronic kidney disease with stage 1 through stage 4 chronic kidney disease, or unspecified chronic kidney disease; E11.22 Type 2 diabetes mellitus with diabetic chronic kidney disease; N18.2 Chronic kidney disease, stage 2 (mild); F17.210 Nicotine dependence, cigarettes, uncomplicated; Z90.710 Acquired absence of both cervix and uterus; Z85.038 Personal history of other malignant neoplasm of large intestine; Z98.890 Other specified postprocedural states; Z79.899 Other long term (current) drug therapy; Z79.4 Long term (current) use of insulin; Z88.0 Allergy status to penicillin; Z91.041 Radiographic dye allergy status; Z88.8 Allergy status to other drugs, medicaments and biological substances
CPT/HCPCS: 10005; 76536; 76942

== ENCOUNTER → 2020-08-29 | Outpatient (CLI) | payer MEDICARE, BC ==
[~2020-08-29] MED LIST changes: -LIDOCAINE 1% Multi-Dose 20 ML VIAL. INJ ONE
[2020-08-29 15:19] LABS: FREE T4 1.14 ng/dL (0.76-1.46); THYROID STIM HORMONE (TSH) 0.129 uIU/mL (0.358-3.74)
== END ==
LOC: ONCLAB 13:30
PROVIDERS: ATTEND Radiology Radiation Oncology
DX: C32.1 Malignant neoplasm of supraglottis (principal); E11.9 Type 2 diabetes mellitus without complications; Z79.899 Other long term (current) drug therapy
CPT/HCPCS: 36415; 84439; 84443; 84481